=== PATIENT | female | born 1950 | race Caucasian/White ===

== ENCOUNTER 2019-06-30 03:12 | Emergency (ER) | payer MEDICARE, SELFPAY ==
--- NOTE | ~2019-06-30 | CT_ITS ---
EXAMINATION: CT brain wo con, CT cervical spine wo con EXAM DATE: 06/30/2019 04:59 (accession [id number]), 06/30/2019 05:00 (accession [id number]) INDICATION: Head injury. TECHNIQUE: Spiral CT of the head was performed without contrast. Axial, coronal and sagittal images were reviewed. Spiral CT of the cervical spine was performed without contrast. Axial images were rev iewed. Coronal and sagittal reformatted images were also reviewed. The dose-length product (DLP) fo r this examination was 605.33 (accession [id number]), 307.79 (accession [id number]) mGy-cm. The exposure was tailored according to patient size, and iterative reconstruction (ASIR) was used as additional dose reduction technique. There is no prior study for comparison. FINDINGS: HEAD CT: There is no acute intraparenchymal hemorrhage. No evidence of intraparenchymal brain mass l esion. No evidence of acute infarction. There is mild periventricular and subcortical hypodensity, n onspecific but probably related to small vessel ischemic disease. There is moderate prominence of t he sulci and ventricles related to cerebral atrophy. There is intracranial carotid arteriosclerosis . There is no mass effect or midline shift. There is no obstructive hydrocephalus suspected. There are no extra-axial collections. There are no acute calvarial fractures. Patient has had bilateral ocular lens surgery. Mild to moderate left supraorbital and frontal scalp soft tissue swelling, scal p contusion. Mild mucoperiosteal thickening. Small osteoma in right frontal sinus. CERVICAL CT: Mild to moderate cervical spondylosis. There is no evidence of acute cervical fracture. The odontoid process is intact. Pre-dens space is normal. Prevertebral soft tissue is normal. The re are no soft tissue abnormalities identified. There is no disc space widening or traumatic vertebr al body subluxation suspected. A detailed level by level evaluation of spondylosis can be added as addendum if requested. IMPRESSION: 1. No acute intracranial or cervical findings. 2. Frontal scalp contusion. 3. Mild to moderate cervical spondylosis. Reviewed, dictated and finalized at location A. IMPRESSION: 1. No acute intracranial or cervical findings. 2. Frontal scalp contusion. 3. Mild to moderate cervical spondylosis.
[2019-06-30 03:09] VITALS: BP 130/99; PULSE 89; RESP 16; TEMP 36.4; O2SAT 97
--- NOTE | 2019-06-30 03:50 | PC.NURSE ---
Patient's heard by staff stating, Rama Calixto! Staff into room, patient noted to be climbing out of bed. Patient assisted back into bed. Patient and continuously screaming at each other. Explained to patient and that he would need to leave if they cannot settle down. stated he would leave.
[2019-06-30 04:16] VITALS: BP 107/53; PULSE 89; RESP 18; O2SAT 97
--- NOTE | 2019-06-30 04:16 | PC.NURSE ---
Patient assisted to bedside commode. Patient very unsteady. Assisted back to bed and bed alarm placed under patient.
--- NOTE | 2019-06-30 04:37 | ECG_ITS ---
Measurements Intervals [place] Rate: 86 P: MA: 0 QRS: 62 QRSD: 101 T: 87 QT: 257 QTc: 307 Interpretive Statements SINUS RHYTHM WITH FIRST DEGREE AV BLOCK BORDERLINE ST-T WAVE ABNORMALITY- ANT/LAT LEADS BASELINE ARTIFACT- I, III, AVL, V1-V4 ABNORMAL ECG Electronically Signed On 06-30-2019 8:07:23 CDT by Eddie Corley D.O.
--- NOTE | 2019-06-30 04:38 | ED.FALL ---
HPI - Fall General Chief Complaint: Fall Stated Complaint: 08 Time Seen by Provider: 06/30/19 04:20 Source: patient Mode of arrival: EMS Limitations: intoxication History of Present Illness HPI Narrative: This patient is 68 yo female who presents to ER via EMS for evaluatino of head injury s/p fall. Patient states she has been drinking alcohol and watching movies tonight. She states she slipped and fell when she got up to go to bathroom. She denies LOC or headache. She did have 1 episode of vomiting after falling. Her heard her fall and she was awake. PAtient denies chest pain, sob, neck, abdominal pain, dizziness or nausea currently. She also states she does not take anticoagulation. complaint: fall Fall from: standing Fall witnessed: no Place fall occurred: home Loss of consciousness: none Symptoms prior to fall: none Context: tripped/slipped Location of injury: head Related Data Allergies Allergy/AdvReac Type Severity Reaction Status Date / Time Iodinated Contrast Media Allergy Severe DIFFICULTY Verified 01/08/19 12:40 BREATHING ampicillin Allergy Unknown Verified 11/18/09 10:55 iodine Allergy Unknown Verified 11/18/09 10:55 Penicillins Allergy Unknown Verified 03/19/15 08:46 shellfish derived Allergy Unknown Verified 03/19/15 08:48 Review of Systems Review of Systems: All systems reviewed & are unremarkable except as noted in HPI and below Constitutional: Constitutional: Denies chills, Denies fever(s) and Denies weakness ENT: Denies dizziness Cardiovascular: Cardiovascular: Denies chest pain Respiratory: Respiratory: Denies cough and Denies dyspnea Gastrointestinal: Gastrointestinal: Denies abdominal pain, Denies nausea and Reports vomiting Musculoskeletal: Musculoskeletal: Denies back pain Neurologic: Denies dizziness, Denies headache(s) and Denies focal weakness [facility] Past Medical History Medical History (Updated 06/30/19 @ 07:17 by Shawna Mitchell MD) Hypothyroidism Surgical History Surgical History (Updated 06/30/19 @ 04:43 by Shawna Mitchell MD) H/O: hysterectomy Hx of appendectomy Family History Family History (Updated 03/19/15 @ 09:36 by DOCTOR UNKNOWN) Grandparent Hypertension Cerebrovascular accident Diabetes mellitus Mother Family history of lung cancer Family history of malignant neoplasm Father Patient's father is Social History Social History (Updated 06/30/19 @ 04:44 by Shawna Mitchell MD) Smoking status: Current every day smoker Alcohol intake: current Exam Const: General: alert Orientation/consciousness: patient oriented x3 HENMT: Head: other (left forehead hematoma) Mouth: Yes Normal oral and palatal mucosa present, Yes lip normal and Yes tongue normal Throat: posterior oropharynx normal, tonsils normal and uvula midline Eyes: Conjunctivae: conjunctivae normal Pupils: Equal, round and reactive pupils present EOM: EOMs intact bilaterally Neck: Neck: no lymphadenopathy Chest: Chest palpation & inspection: normal inspection of the chest Resp: Effort & Inspection: normal respiratory effort Auscultation: clear to auscultation bilaterally Cardio: Rate: regular rate Rhythm: regular rhythm Heart sounds: no murmurs Skin: General skin exam: normal color Rashes: no rashes Neuro: General: patient oriented x3, moves all extremities, no meningeal signs and CN's II-XI intact bilaterally Other: mild slurred speech likely from alcohol Extrem: General: no pedal edema Course Reevaluation(s) Reevaluation #1: Nursing staff reports patient appear for steady with gait. She reports she normally has unsteady gait and she is ready to go home. Patient is awaiting for to come to ER. Date: 06/30/19 Time: 07:16 Vital Signs Vital signs: Vital Signs Temperature 97.6 F 06/30/19 03:09 Pulse Rate 89 06/30/19 03:09 Respiratory Rate 16 06/30/19 03:09 Blood Pressure 130/99 H 06/30/19 03
[2019-06-30 06:25] LABS: Basophils Percent Auto 0.6 % (0.2-1.2); Eosinophils Absolute Auto 0.2 K/mm3 (0-0.3); Eosinophils Percent Auto 3.1 % (0-4.4); Hematocrit 40.4 % (37.0-47.0); Hemoglobin 13.2 g/dL (12.0-15.0); Immature Granulocyte Absolute 0.05 K/mm3 (0.00-0.031); Immature Granulocyte Percent A 0.8 % (0-0.5); Lymphocytes Percent Auto 24.5 % (18.3-44.2); Mean Corpuscular HGB Conc 32.7 g/dl (32-36); Mean Corpuscular Hemoglobin 30.1 pg (26-34); Mean Platelet Volume 9.7 fl (7.4-10.4); Monocytes Absolute Auto 0.4 K/mm3 (0.1-0.6); Monocytes Percent Auto 6.4 % (2.6-8.5); Neutrophils Absolute Auto 4.2 K/mm3 (1.3-6.7); Neutrophils Percent Auto 64.6 % (45.5-73.1); Platelet Count Result 185 k/mm3 (150-375); Red Blood Count 4.39 M/mm3 (4.2-5.4); Red Cell Distribution Width 12.9 % (11.5-14.5); White Blood Count 6.5 K/mm3 (4.5-10.0)
[2019-06-30 06:32] LABS: Ethanol 203 mg/dL (<10)
[2019-06-30 06:34] LABS: Alanine Aminotransferase 16 U/L (4-35); Albumin Level 4.2 g/dL (3.5-5.1); Alkaline Phosphatase 95 U/L (38-126); Aspartate Amino Transferase 28 U/L (14-36); Bilirubin,Total 0.5 mg/dL (0.2-1.3); Blood Urea Nitrogen 8 mg/dL (7-17); Calcium 9.1 mg/dL (8.4-10.2); Carbon Dioxide 30 mmol/L (22-30); Chloride 101 mmol/L (98-107); Estimated CRCL calculation 59 ml/min; Estimated Glomerular Filt Rate > 60; Glucose 113 mg/dL (65-105); Magnesium 1.8 mg/dL (1.6-2.3); Potassium 3.9 mmol/L (3.4-5.0); Sodium 139 mmol/L (137-145)
== END 2019-06-30 07:57 | disposition home or self-care (01) ==
PROVIDERS: Emergency Provider General Practice; PCP Family Medicine
DX: S00.83XA Contusion of other part of head, initial encounter (principal); F10.120 Alcohol abuse with intoxication, uncomplicated; Y90.7 Blood alcohol level of 200-239 mg/100 ml; F17.200 Nicotine dependence, unspecified, uncomplicated; I44.0 Atrioventricular block, first degree; R94.31 Abnormal electrocardiogram [ECG] [EKG]; W01.0XXA Fall on same level from slipping, tripping and stumbling without subsequent striking against object, initial encounter
CPT/HCPCS: 36415; 70450; 72125; 80053; 80307; 83735; 85025; 93005; 96365; 96366; 99284; J3411; J3475; J7120

== ENCOUNTER 2020-12-14 03:14 | Emergency (ER) | payer MEDICARE, SELFPAY ==
--- NOTE | ~2020-12-14 | CT_ITS ---
EXAMINATION: CT brain wo con DATE: 12/14/2020 04:21 INDICATION: Fall TECHNIQUE: Computed tomography (CT) of the head was performed without intravenous contrast. The mA wa s adjusted according to patient size. Iterative reconstruction technique was employed. Exam dose: 60 5.33 mGy-cm total exam DLP. COMPARISON: 06/30/2019 CT head FINDINGS: There are bilateral carotid siphon internal carotid artery calcifications. There is nonspec ific diminished attenuation of cerebral white matter, likely due to chronic small vessel ischemic jori nges. No intracranial mass lesion or hemorrhage or cerebrovascular accident is detected. No midline shift o r mass effect effect. No subdural or epidural hematoma. There is left facial hematoma in the maxillary antra zygomatic area. No fracture or bone destruction of the cranial vault. Some mild soft tissue thickening is noted in the right frontal sinus and both sphenoid sinuses. The p aranasal sinuses otherwise IMPRESSION: Left maxillary sinus and zygomatic facial hematoma; no apparent underlying facial fractur e or skull fracture Cerebral atherosclerosis and chronic small vessel ischemic changes of the cerebral white matter No acute intracranial finding Reviewed, dictated and finalized at [facility]. Reviewed, dictated and finalized at location A. IMPRESSION: Left maxillary sinus and zygomatic facial hematoma; no apparent und erlying facial fracture or skull fracture Cerebral atherosclerosis and chronic small vessel ischemic changes of the cereb ral white matter No acute intracranial finding
--- NOTE | ~2020-12-14 | CT_ITS ---
EXAMINATION: CT lumbar spine wo con DATE: 12/14/2020 04:21 INDICATION: Low back injury. Fall. TECHNIQUE: Computed tomography (CT) of the lumbar spine was performed without intravenous contrast. A utomated exposure control and iterative reconstruction technique were employed. The dose-length produ ct was 846.63 mGy-cm. COMPARISON: None FINDINGS: There is 3 degrees dextrocurvature of lumbar spine. Vertebral body heights are normal. Ther e is mildly decreased disc height at L3-L4. The following disc levels are specifically discussed: L1-L2: The disc does not extend beyond the endplate margin. There is moderate bilateral facet joint o steoarthritis. There is no neural foraminal stenosis. There is no central canal stenosis. L2-L3: The disc is mildly bulging. There is mild bilateral facet joint osteoarthritis. There is mild bilateral neural foraminal stenosis. There is no central canal stenosis. L3-L4: The disc is bulging. There is severe right and moderate left facet joint osteoarthritis. There is mild bilateral neural foraminal stenosis. There is mild central canal stenosis. L4-L5: The disc is bulging. There is severe right and moderate left facet joint osteoarthritis. There is mild bilateral neural foraminal stenosis. There is mild central canal stenosis. L5-S1: The disc is bulging. There is severe bilateral facet joint osteoarthritis. There is mild bilat eral neural foraminal stenosis. There is mild central canal stenosis. IMPRESSION: 1. No fracture. 2. Mild lumbar spondylosis. Reviewed, dictated and finalized at location A.
--- NOTE | ~2020-12-14 | CT_ITS ---
EXAMINATION: CT facial & cervical spine wo DATE: 12/14/2020 04:21 INDICATION: Fall TECHNIQUE: Computed tomography (CT) of the facial bones and maxillofacial region was performed withou t intravenous contrast. Automated exposure control and iterative reconstruction technique were employ ed. Exam dose: 399.51 mGy-cm total exam DLP. COMPARISON: 12/14/2020 CT brain FINDINGS: There is soft tissue hematoma/swelling in the left upper maxillary and anterior zygomatic r egion. The orbital rims and xiao, frontozygomatic sutures and zygomatic arches as well as maxillary bones are intact without evidence of fracture. The mandible and temporomandibular joints are intact. No fracture of the nasal bones or maxillary spine. IMPRESSION: Left facial hematoma; no facial fracture Reviewed, dictated and finalized at [facility]. Reviewed, dictated and finalized at location [facility].
[2020-12-14 03:19] VITALS: BP 129/77; PULSE 97; RESP 16; TEMP 36.6; O2SAT 95
[2020-12-14 03:28] VITALS: PULSE 92; RESP 18; O2SAT 95
[2020-12-14 03:30] VITALS: PULSE 91; RESP 18; O2SAT 93
[2020-12-14 03:31] VITALS: BP 123/68; PULSE 91; RESP 17; O2SAT 93
[2020-12-14 03:45] VITALS: O2SAT 94
[2020-12-14 03:46] VITALS: BP 131/71; O2SAT 93
--- NOTE | 2020-12-14 04:00 | ED.FALL ---
HPI - Fall General Chief Complaint: Fall Stated Complaint: glf, light headed, lower back pain Time Seen by Provider: 12/14/20 03:42 Source: RN notes reviewed History of Present Illness HPI Narrative: Patient presents to emergency department from home for a fall. Patient states she has peripheral neuropathy supposed be walking with a walker present always use it she states that she fell yesterday and then again today. Patient states she struck the left side of her face causing bruising around the left side eye and into the left cheek she also states that when she fell she hurt her lower back causing pain in the bilateral lower back she denies any loss of consciousness she denies any chest pain shortness of breath abdominal pain nausea vomiting or any other symptoms Related Data Allergies Allergy/AdvReac Type Severity Reaction Status Date / Time Iodinated Contrast Media Allergy Severe DIFFICULTY Verified 12/14/20 03:32 BREATHING ampicillin Allergy Unknown Unknown Verified 12/14/20 03:32 iodine Allergy Unknown Difficulty Verified 12/14/20 03:32 Breathing Penicillins Allergy Unknown Unknown Verified 12/14/20 03:32 shellfish derived Allergy Unknown Difficulty Verified 12/14/20 03:32 Breathing Review of Systems Review of Systems: Gen.: Denies fevers or chills Eyes: Denies eye pain or visual change ENT: Reports facial pain Respiratory: Denies shortness of breath or cough CV: Denies chest pain or palpitations GI: Denies abdominal pain nausea, emesis or diarrhea Musculoskeletal: See HPI Neuro: Denies numbness, tingling, weakness or focal weakness Skin: Denies rash Except as documented, all other systems reviewed and negative PMFSH Past Medical History Medical History Hypothyroidism Surgical History Surgical History (Updated 06/30/19 @ 04:43 by Shawna Mitchell MD) H/O: hysterectomy Hx of appendectomy Family History Family History (Updated 03/19/15 @ 09:36 by DOCTOR UNKNOWN) Grandparent Hypertension Cerebrovascular accident Diabetes mellitus Mother Family history of lung cancer Family history of malignant neoplasm Father Patient's father is Social History Social History Smoking status: Current every day smoker Alcohol intake: current Exam Narrative: APPEARANCE: No acute distress, nontoxic, resting in bed EYES: EOMI PERRL HEENT: Normocephalic, ecchymosis over left superior and inferior orbit and left cheek nares patent range of motion of the jaw without pain Neck supple no midline tenderness palpation RESPIRATORY: No respiratory distress Clear to auscultation bilaterally with no rhonchi wheezing or rales. CARDIOVASCULAR: Regular rate and rhythm without murmurs rubs or gallops. ABDOMINAL: Soft, nontender, nondistended, no rebound or guarding MUSCULOSKELETAl: Moves all extremities. No clubbing, cyanosis or edema. Back: No midline thoracic or lumbar tenderness palpation 10 palpation bilateral paravertebral muscles L3-5 NEURO: Awake and alert x 4. Following commands, speech normal, no focal deficits SKIN:: Warm, dry. No rashes lesions or abrasions PSYCHIATRIC: Normal affect/mood, Course Course Emergency Course: Discussed with patient results of workup and diagnosis. Discussed need for follow-up with primary care, proper use of medication, and reasons to return to the emergency department. Patient understands and agrees to current treatment plan Vital Signs Vital signs: Vital Signs Temperature 97.8 F 12/14/20 03:19 Pulse Rate 97 12/14/20 03:19 Respiratory Rate 16 12/14/20 03:19 Blood Pressure 129/77 12/14/20 03:19 Pulse Oximetry 95 12/14/20 03:19 Temperature 97.8 F 12/14/20 03:19 Pulse Rate 91 12/14/20 03:31 Respiratory Rate 17 12/14/20 03:31 Blood Pressure 131/71 12/14/20 03:46 Pulse Oximetry 93 12/14/20 03:46 [facility] -
== END 2020-12-14 05:36 | disposition home or self-care (01) ==
PROVIDERS: Emergency Provider Emergency Medicine; PCP Family Medicine
DX: S00.83XA Contusion of other part of head, initial encounter (principal); S39.92XA Unspecified injury of lower back, initial encounter; G62.9 Polyneuropathy, unspecified; E03.9 Hypothyroidism, unspecified; F17.200 Nicotine dependence, unspecified, uncomplicated; M47.816 Spondylosis without myelopathy or radiculopathy, lumbar region; I67.2 Cerebral atherosclerosis; W01.198A Fall on same level from slipping, tripping and stumbling with subsequent striking against other object, initial encounter
CPT/HCPCS: 70450; 70486; 72125; 72131; 99284

== ENCOUNTER 2021-05-31 00:16 | Observation (INO) | payer MEDICARE, SELFPAY ==
[2021-05-31] VITALS (27 sets, daily range): BP systolic 167–200; BP diastolic 61–103; PULSE 70–85; RESP 14–24; TEMP 35.9–37.1; O2SAT 93–100; BMI 32.4
--- NOTE | ~2021-05-31 | US_ITS ---
EXAMINATION:US venous doppler LE RT INDICATION:Erythema TECHNIQUE: Multiple grayscale, color flow and Doppler images of the right lower extremity deep venous systems were obtained and reviewed. COMPARISON:No prior studies for comparison. FINDINGS: The common femoral, superficial femoral and popliteal veins demonstrate normal respiratory variation, augmentation and compressibility. Color flow is also seen within the posterior tibial, pe roneal, and profunda veins. IMPRESSION: 1: No lower extremity deep venous thrombosis. Reviewed, dictated and finalized at location A.
--- NOTE | ~2021-05-31 | CT_ITS ---
EXAMINATION: CT cervical spine wo con DATE: 05/31/2021 01:57 INDICATION: Status post recent fall. Neck pain. TECHNIQUE: Computed tomography (CT) of the cervical spine was performed without intravenous contrast. The dose-length product was 365 mGy-cm. Automated exposure control and iterative reconstruction tech [employer] were employed. COMPARISON: CT dated 12/14/2020 FINDINGS: There is normal cervical alignment. Vertebral body heights are maintained. Craniovertebral junction is normal. Odontoid process is normal. No evidence for perched facet. No acute fracture or t raumatic malalignment. There is mild loss of disc height at multiple levels. There is mild multilevel uncovertebral and facet hypertrophy. Lung apices are normal. There is mild carotid atherosclerosis. No paraspinal soft tissue abnormality. There is mucosal thickening of the sphenoid sinuses. IMPRESSION: 1. No acute fracture. 2: Mild cervical spondylosis. Reviewed, dictated and finalized at location A.
--- NOTE | ~2021-05-31 | MR_ITS ---
EXAMINATION: MR lumbar spine wo con DATE: 05/31/2021 12:49 INDICATION: Low back pain. Assess for possible discitis at L2-L3 TECHNIQUE: Magnetic resonance imaging (MRI) of the lumbar spine was performed without intravenous con trast. Sequences included sagittal T2-weighted FSE, sagittal T2-weighted FS FSE, sagittal T1-weighted FSE, and axial T2-weighted FSE. COMPARISON: None FINDINGS: Alignment is normal. L3 superior endplate compression fracture with up to 10-20% left-sided vertebral body height loss. There is marrow edema consistent with a recent injury. Remaining vertebral body he ights are normal. Mild disc height loss at L3-L4. The conus medullaris terminates at L1-L2. There is normal signal in the caudal spinal cord. Paravertebral soft tissues are unremarkable. The following d isc levels are specifically discussed: T12-L1: The disc does not extend beyond the endplate margin. There is mild bilateral facet joint oste oarthritis. There is no neural foraminal stenosis. There is no central canal stenosis. L1-L2: The disc does not extend beyond the endplate margin. There is mild bilateral facet joint osteo arthritis. There is no neural foraminal stenosis. There is no central canal stenosis. L2-L3: The disc does not extend beyond the endplate margin. There is hypertrophy of the ligamentum fl avum. There is also epidural lipomatosis with anterior bulging of the posterior epidural fat. There i s mild bilateral facet joint osteoarthritis. There is no neural foraminal stenosis. There is moderate central canal stenosis. L3-L4: Disc is minimally bulging. There is hypertrophy of the ligamentum flavum. Epidural lipomatosis with anterior bulging of the posterior epidural fat. There is moderate bilateral facet joint osteoar thritis. There is mild bilateral neural foraminal stenosis. There is moderate to severe central canal stenosis. L4-L5: Disc is minimally bulging. There is hypertrophy of the ligamentum flavum. Epidural lipomatosis with anterior bulging of the posterior epidural fat. There is moderate bilateral facet joint osteoar thritis. There is mild bilateral neural foraminal stenosis. There is mild to moderate central canal s tenosis. L5-S1: Disc is mildly bulging. There is severe bilateral facet joint osteoarthritis. There is mild le ft neural foraminal stenosis. There is no central canal stenosis. IMPRESSION: 1. Relatively recent-appearing mild L3 superior endplate compression fracture. 2. Mild lumbar spondylosis but with moderate to severe central canal stenosis at L3-L4 and moderate c entral canal stenosis at L2-L3 due in part to hypertrophy of the ligamentum flavum and epidural lipom atosis. Reviewed, dictated and finalized at location A. IMPRESSION: 1. Relatively recent-appearing mild L3 superior endplate compression fracture. 2. Mild lumbar spondylosis but with moderate to severe central canal stenosis a t L3-L4 and moderate central canal stenosis at L2-L3 due in part to hypertrophy of the ligamentum flavum and epidural lipomatosis.
--- NOTE | ~2021-05-31 | CT_ITS ---
EXAMINATION: CT brain wo con DATE: 05/31/2021 01:57 INDICATION: Status post recent fall. Confusion. TECHNIQUE: Computed tomography (CT) of the head was performed without intravenous contrast. The dose- length product was 605.33 mGy-cm. Automated exposure control and iterative reconstruction technique w ere employed. COMPARISON: CT dated 12/14/2020 FINDINGS: No acute intracranial hemorrhage, infarction, mass or mass effect. No ventriculomegaly or m idline shift. There are scattered mild periventricular and subcortical white matter changes, most lik elliot related to small vessel ischemic disease (microangiopathy). There is a probable small osteoma or inspissated mucous retention cyst right frontal sinus. No depressed skull fractures. Mastoids are pne umatized. IMPRESSION: 1. No acute intracranial abnormality. 2: Chronic age-related findings. Reviewed, dictated and finalized at location A.
--- NOTE | ~2021-05-31 | CT_ITS ---
EXAMINATION: CT lumbar spine wo con DATE: 05/31/2021 01:58 INDICATION: Low back pain after trauma TECHNIQUE: Computed tomography (CT) of the lumbar spine was performed without intravenous contrast. Estefania maya dose-length product was 1152.55 mGy-cm. Automated exposure control and iterative reconstruction te victorino were employed. COMPARISON: None FINDINGS: There is a mild superior endplate compression fracture of L3 which is new since 12/14/2020 examination, possibly acute. There is degenerative disc disease at L2-3. There is atherosclerosis and ectasia of the aorta. The remainder of the lumbar vertebral body heights are maintained. Small bone island in L2. There are calcified granulomas in the spleen. There is osteopenia. IMPRESSION: 1. New superior endplate compression fracture of L3 since CT dated 12/15/2020, possibly acute. There is approximately 10% loss of vertebral body height. Reviewed, dictated and finalized at location A.
--- NOTE | 2021-05-31 00:43 | ED.FALL ---
HPI - Fall General Chief Complaint: Fall <Ana Kennedy PA-C - Last Filed: 05/31/21 04:33> Stated Complaint: Back pain, fall 2 days ago <Ana Kennedy PA-C - Last Filed: 05/31/21 04:33> Source: patient and EMS <Ana Kennedy PA-C - Last Filed: 05/31/21 04:33> Mode of arrival: EMS <Ana Kennedy PA-C - Last Filed: 05/31/21 04:33> Limitations: no limitations <Ana Kennedy PA-C - Last Filed: 05/31/21 04:33> History of Present Illness HPI Narrative: Patient is a 70-year-old female who presents the ED via EMS with report of back pain status post fall. Patient reports she rolled and fell off the couch 2 nights ago. She states she laid on her floor all night that night. She denied any prodromal symptoms prior to the fall or any dizziness/lightheadedness. She was eventually able to get up off the floor and ambulate over the past day, but reports having significant pain to her mid lower back. She states she went to the bathroom last night, 05/30, and began to feel weak in her BLE and felt like she was going to fall again. No new injuries. EMS was called. EMS reported to patient's nurse that patient has been laying on the ground for the past 2 days since her original fall. Patient denies this and states she has been able to ambulate. She has some difficultly ambulating at baseline and has needed her walker for assistance with ambulation since her fall due to her back pain. Patient denies hitting her head or losing consciousness in the fall. She denies any saddle anesthesia, bowel or bladder incontinence, urinary retention, chest pain, shortness of breath, abdominal pain, nausea, vomiting, fever, chills, neck pain. Patient also reports having increased swelling and erythema in her right lower leg that she first noticed last night, 05/30. She does report having mild pain throughout right lower leg. <Ana Kennedy PA-C - Last Filed: 05/31/21 04:33> Related Data Allergies/Adverse Reactions: Allergies Allergy/AdvReac Type Severity Reaction Status Date / Time Iodinated Contrast Media Allergy Severe DIFFICULTY Verified 12/14/20 03:32 BREATHING ampicillin Allergy Unknown Unknown Verified 12/14/20 03:32 iodine Allergy Unknown Difficulty Verified 12/14/20 03:32 Breathing Penicillins Allergy Unknown Unknown Verified 12/14/20 03:32 shellfish derived Allergy Unknown Difficulty Verified 12/14/20 03:32 Breathing <Ana Kennedy PA-C - Last Filed: 05/31/21 04:33> Review of Systems Review of Systems: CONSTITUTIONAL: Denies fever, chills, or sweats. EYES: Denies visual changes. CARDIOVASCULAR: Denies chest pain, palpitations. RESPIRATORY: Denies cough or dyspnea. GASTROINTESTINAL: Denies abdominal pain, nausea, vomiting, or diarrhea, urinary retention, bowel/bladder incontinence. GENITOURINARY: Denies dysuria or hematuria. MUSCULOSKELETAL: Reports mid lower back pain, pain/swelling/redness to RLE. Denies joint pain, or myalgia. NEUROLOGIC: Reports BLE weakness. Denies dizziness lightheadedness headache, saddle numbness, or weakness. <Ana Kennedy PA-C - Last Filed: 05/31/21 04:33> All systems reviewed & are unremarkable except as noted in HPI and below <Ana Kennedy PA-C - Last Filed: 05/31/21 04:33> [facility] Past Medical History Medical History: Medical History (Updated 05/31/21 @ 04:26 by Lynnette Tai MD) Hypothyroidism <Ana Kennedy PA-C - Last Filed: 05/31/21 04:33> Surgical History Surgical History: Surgical History (Updated 05/31/21 @ 04:20 by Ana Kennedy PA-C) H/O vascular surgery H/O: hysterectomy Hx of appendectomy <Ana Kennedy PA-C - Last Filed: 05/31/21 04:33> Family History Family History: Family History (Updated 03/19/15 @ 09:36 by DOCTOR UNKNOWN) Grandparent Hypertension Cerebrovascular accident Diabetes mellitus Mother Family history of lung cancer Family history of malignant neoplasm Father Patien
--- NOTE | 2021-05-31 00:45 | ECG_ITS ---
Measurements Intervals [place] Rate: 73 P: 40 VT: 250 QRS: 65 QRSD: 98 T: 59 QT: 429 QTc: 474 Interpretive Statements SINUS RHYTHM WITH FIRST DEGREE AV BLOCK NONSPECIFIC T-WAVE ABNORMALITY. ABNORMAL ECG COMPARED TO ECG 06/30/2019 05:08:10 NO SIGNIFICANT CHANGES Electronically Signed On 05-31-2021 9:05:48 CDT by Poli Johnson M.D.
[2021-05-31 01:22] LABS: Hematocrit 38.3 % (37.0-47.0); Hemoglobin 12.2 g/dL (12.0-15.0); Immature Platelet Fraction Pct 5.1 % (0.9-11.2); Mean Corpuscular HGB Conc 31.9 g/dl (32-36); Mean Corpuscular Hemoglobin 30.8 pg (26-34); Mean Corpuscular Volume 96.7 fl (80-100); Mean Platelet Volume 10.6 fl (7.4-10.4); Platelet Count Result 165 k/mm3 (150-375); Red Blood Count 3.96 M/mm3 (4.2-5.4); Red Cell Distribution Width 13.1 % (11.5-14.5); White Blood Count 7.7 K/mm3 (4.5-10.0)
[2021-05-31 01:29] LABS: Add Urine Microscopic? YES; Appearance Urine Cloudy (Clear); Bacteria Urine Trace /hpf; Bilirubin Urine Negative (Negative); Blood Urine 1+ (Negative); Color Urine Yellow (Yellow); Glucose Urine UA Negative (Negative); Ketones Urine Negative (Negative); Leukocyte Esterase Ur Negative LEU/UL (Negative); Mucus Urine Rare /lpf; Nitrate Urine Negative (Negative); Protein Urine Negative (Negative); RBC Urine 0-2 /hpf (0-2); Specific Grav Ur 1.008 (1.001-1.035); Urobilinogen Urine Negative mg/dL (<2.0); WBC Urine 0-3 /hpf
[2021-05-31 02:04] LABS: Alanine Aminotransferase 27 U/L (4-35); Albumin Level 4.1 g/dL (3.5-5.1); Alkaline Phosphatase 113 U/L (38-126); Anion Gap 6 mmol/L (8-16); Aspartate Amino Transferase 30 U/L (14-36); Bilirubin,Total 0.6 mg/dL (0.2-1.3); Blood Urea Nitrogen 21 mg/dL (7-17); Calcium 8.8 mg/dL (8.4-10.2); Carbon Dioxide 30 mmol/L (22-30); Chloride 100 mmol/L (98-107); Creatine Kinase 58 U/L (30-135); Estimated Glomerular Filt Rate > 60; Glucose 114 mg/dL (65-110); Potassium 3.7 mmol/L (3.4-5.0); Sodium 136 mmol/L (137-145)
[2021-05-31 02:16] LABS: Troponin I < 0.012 ng/mL (0.000-0.034)
[2021-05-31] MEDS: KETOROLAC 30 MG/ML VIAL (*BKC) IV PUSH ×3 (03:04→21:04)
--- NOTE | 2021-05-31 03:46 | PM.IMHP ---
H&P: HPI History of Present Illness Date/Time: 05/31/21 03:46 Chief Complaint: Fall Narrative: This is a 70-year-old female with past medical history significant for peripheral arterial disease status post bypass grafting in of the right lower extremity. Patient was brought to the emergency room via EMS after she had a fall on remain done for overnight eventually she was able to climb to the couch however EMS found her laying on the floor and probably had been there for 2 days. Patient is not the greatest historian she denies any loss of consciousness, fevers, rigors ,,chills cough ,nausea, vomiting, diarrhea ,abdominal pain ,chest pain ,syncope ,near syncope shortness of breath, cough, sputum production, she has swelling of the right lower extremity however this is her usual. Preliminary workup was significant for a fracture vertebrae at the level of L3 in the spine. Decision has been made to admit the patient for further evaluation management and treatment.. Review of Systems Review of Systems: Fall, weakness. Constitutional: Constitutional: Denies chills, Denies fatigue, Denies fever(s), Denies malaise, Denies night sweats, Denies poor appetite and Reports weakness Eyes: Eyes: Denies change in vision ENT: Denies dysphagia, Denies vertigo, Denies dizziness, Denies nasal congestion, Denies nasal discharge, Denies nasal obstruction and Denies odynophagia Cardiovascular: Cardiovascular: Denies chest pain, Denies syncope, Reports pedal edema, Reports leg edema (rle), Denies lightheadedness, Denies radiating jaw, neck or arm pain, Denies palpitations, Denies dyspnea on exertion, Denies orthopnea and Denies paroxysmal nocturnal dyspnea Respiratory: Respiratory: Denies cough and Denies dyspnea Gastrointestinal: Gastrointestinal: Denies abdominal pain, Denies dyspepsia, Denies heartburn, Denies nausea and Denies vomiting Genitourinary: Genitourinary: Denies dysuria Musculoskeletal: Musculoskeletal: Denies back pain and Reports muscle weakness Comments: Right lower extremity swelling Integumentary/Breasts: Skin/Breast: Denies rash Neurologic: Denies focal weakness and Denies Sensory deficit (Neuro) Psychiatric: Psychiatric: Reports no additional psychiatric complaints and Reports as per HPI Endocrine: Endocrine: Denies cold intolerance, Denies heat intolerance, Denies polyphagia, Denies polydipsia, Denies polyuria and Denies palpitations Hematologic/Lymphatic: Hematologic/Lymphatic: Reports no additional hematologic/lymphatic complaints and Reports as per HPI Allergic/Immunologic: Allergic/Immunologic: Reports no additional allergic/immunologic complaints and Reports as per HPI [facility] Past Medical History Medical History (Updated 05/31/21 @ 04:26 by Lynnette Tai MD) Hypothyroidism Surgical History Surgical History (Updated 05/31/21 @ 04:20 by Ana Kennedy PA-C) H/O vascular surgery H/O: hysterectomy Hx of appendectomy Family History Family History (Updated 03/19/15 @ 09:36 by DOCTOR UNKNOWN) Grandparent Hypertension Cerebrovascular accident Diabetes mellitus Mother Family history of lung cancer Family history of malignant neoplasm Father Patient's father is Social History Social History Smoking packs per day: 1 Smoking cigarettes per day: 20.0 Years smoked: 52 Smoking pack-years: 52.00 Smoking status: Former smoker Tobacco type: cigarettes Second hand tobacco smoke exposure: Yes Smoking end date: 05/11/20 Alcohol intake: former Substance use: never Spiritual care concerns: No Meds Home Medications and Allergies Allergies Allergy/AdvReac Type Severity Reaction Status Date / Time Iodinated Contrast Media Allergy Severe DIFFICULTY Verified 12/14/20 03:32 BREATHING ampicillin Allergy Unknown Unknown Verified 12/14/20 03:32 iodine Allergy Unknown Difficulty Verified 12/14/20 03:32 Breath
--- NOTE | 2021-05-31 05:48 | ADMGEN ---
This patient, Marily Acevedo, was admitted to Medical Room 341-01. Patient/family oriented to hospital policies and general routines including ID bracelet, bed and alarms, visiting hours, pain management, procedures, bathroom and other care routines, personal items, smoking policy, room service/diet, and visiting hours. Information on how to activate the Rapid Response Team has been discussed. Patient/Family are encouraged to report perceived risks to care and to ask questions if they do not understand what they are told or what they should do.
[2021-05-31] MEDS: SODIUM CHLORIDE 0.9% IV 1,000 ML 125 ML IV CONT ×3 (06:52→20:53)
[2021-05-31] MEDS: ENOXAPARIN 100 MG/ML SYRINGE 85 MG SUB-Q (08:06)
--- NOTE | 2021-05-31 10:44 | PM.IMPN ---
Progress Note: A&P Assessment and Plan (1) Fall: Qualifiers: Encounter type: initial encounter Qualified Code(s): W19.XXXA - Unspecified fall, initial encounter Code(s): W19.XXXA - Unspecified fall, initial encounter Status: Acute Assessment and Plan: - Continue Fall Precautions at home. - Pain medications as ordered. - PT and OT consult. (2) Muscular deconditioning: Code(s): R29.898 - Other symptoms and signs involving the musculoskeletal system Status: Acute Assessment and Plan: - Treat pain as needed. - PT and OT consult. (3) Localized swelling of right lower extremity: Code(s): R22.41 - Localized swelling, mass and lump, right lower limb Status: Acute Assessment and Plan: - Patient with remote surgery and grafting to that leg by vascular surgery. - Chronic swelling however worsened according to patient, and mildly erythematous. - Venous Doppler negative for any DVT. Distal pulses good without any mottling or signs of vascular compromise. - Labs completed to this point do not reflect any acute infection such as Cellulitis, however will order Inflammatory markers (CRP, Sed Rate) and a Procalcitonin. (4) Closed compression fracture of lumbar vertebra: Qualifiers: Encounter type: initial encounter Lumbar vertebra fracture level: L3 Qualified Code(s): S32.030A - Wedge compression fracture of third lumbar vertebra, initial encounter for closed fracture Code(s): S32.000A - Wedge compression fracture of unspecified lumbar vertebra, initial encounter for closed fracture Status: Acute Assessment and Plan: - Pain meds as needed. - Orthopedic consult - TLSO Brace ordered to be worn when up and removed only when lying in bed. - PT and OT consult with PT recommending Rehab at discharge. - Case Management to assist with Rehab placement. (5) Alcohol use: Code(s): Z72.89 - Other problems related to lifestyle Status: Acute Assessment and Plan: - CIWA scoring Q4, may discontinue when <8 for 24 hours. - PRN Ativan as needed for alcohol Withdrawl - Monitor (6) Hypertension: Qualifiers: Hypertension type: unspecified Qualified Code(s): I10 - Essential (primary) hypertension Code(s): I10 - Essential (primary) hypertension Status: Acute Assessment and Plan: - Not medicated for at home. - Running high. On presentation was 200/103. Now running 190s/70s-80s. - Will order prn Hydralazine with parameters of to give for SBP>180 and DBP>90. - Will start scheduled Norvasc 5 mg po daily in AM. - Monitor Time Spent With Patient Time with patient: 15 - 25 minutes Subjective Date/time seen: 05/31/21 0900 This pt. was examined at the bedside in interval assessment after presenting to the ER overnight, brought in by EMS after sustaining a fall off of her couch two days ago and laying there until yesterday. She said she was able to eventually get up and get around, it was just painful. She has complaints of pain to the lower back. No acute head trauma, loss of bowel or bladder control and no radiation of pain into the legs. She has no other paresthesias to report. ER workup significant for Compression fracture of L3 with 10% disc height loss. Pt. appears comfortable today and she states she just feels sore without any paresthesias. Review of Systems Review of Systems: A full 12 point ROS is performed and is otherwise unremarkable except as documented in HPI. All systems reviewed & are unremarkable except as noted in HPI and below Exam Const: General: comfortable and no acute distress HENMT: Mouth: Yes moist mucous membranes Neck: Neck: supple and no JVD Lymphatic: lymphadenopathy not noted Resp: Effort & Inspection: normal respiratory effort Auscultation: clear to auscultation bilaterally Cardio: Rate: regular rate Rhythm: regular rhythm GI: GI Palp: Yes Soft to palpation Auscultation:
[2021-05-31 11:29] LABS: CRP 1.8 mg/dL (<1.0)
[2021-05-31 11:52] LABS: Erythrocyte Sedimentation Rate 30 mm/hr (0-20)
[2021-05-31 12:10] LABS: Procalcitonin 0.1 ng/mL
[2021-05-31] MEDS: amLODIPine BESYLATE 5 MG TABLET PO (12:18)
[2021-05-31] MEDS: hydrALAZINE HCL 20 MG/ML VIAL 10 MG IV PUSH (13:15)
--- NOTE | 2021-05-31 13:50 | PM.CNOR ---
Assessment and Plan Additional Plan Patient is a 70-year-old female who was admitted through the emergency room last night with L3 compression fracture of the superior endplate with about 10-20% loss of height. This occurred when she rolled off the couch onto the floor 3 days ago. That is when her back started hurting. She laid on the floor for a day and half and then her helped her up the couch. She got her walker and has done little bit of moving around the house then and came to the emergency room last night because of persistent back pain where x-rays and CT scan of the lumbar spine were obtained which showed the compression fracture. CT scan also showed gas within the L2-3 disc space which was not seen on the CT scan of the lumbar spine from December 2020. superior endplate compression fracture was new compared with that CT as well. She denies any fevers or chills or infections in her body. She denies any numbness or loss of bowel or bladder control. Her laboratory study showed mild increase sedimentation rate at 30 normal being 0-20 and mild increase in C-reactive protein 1.8 normal being less than 1. I recommended obtaining an MRI scan of her lumbar spine because of the new gas in the disc space that could suggest diskitis. I reviewed the radiologist's report I reviewed the images. There is no edema of the inferior endplate of L2 which would be expected with diskitis of the L2-3 disc space edema on both endplates. Edema at the top of L3 is consistent with the compression fracture. It was felt that she had moderate central canal stenosis at that level and that at L3-4 she had moderately severe central canal stenosis. On exam today she has mild tenderness in her mid lumbar region. She had intact sensation lower extremities and grossly intact motor function. She was able to stand up bedside her she was standing up I walked into her room. She was alert oriented and in no acute distress. Impression patient has a mild 10 - 20% superior endplate compression fracture of L3. No evidence of infectious process involving the lumbar spine. I would recommend obtaining a semi rigid TLSO and we will ask Radio Script Writer to do that. I would recommend SCDs for DVT prophylaxis and she should follow-up with a data specialist for her new compression fracture and underlying lumbar spinal stenosis which are conditions that I do not manage my practice. History of Present Illness HPI Consult date: 05/31/21 Chief complaint: L3 Compression Fracture, likely LLE DVT [facility] Past Medical History Medical History (Updated 05/31/21 @ 11:03 by COLIN Nieves) Hypothyroidism Surgical History Surgical History (Updated 05/31/21 @ 04:20 by Ana Kennedy PA-C) H/O vascular surgery H/O: hysterectomy Hx of appendectomy Family History Family History Grandparent Hypertension Cerebrovascular accident Diabetes mellitus Mother Family history of lung cancer Family history of malignant neoplasm Father Patient's father is Social History Social History Smoking packs per day: 1 Smoking cigarettes per day: 20.0 Years smoked: 52 Smoking pack-years: 52.00 Smoking status: Former smoker Tobacco type: cigarettes Second hand tobacco smoke exposure: Yes Smoking end date: 05/11/20 Alcohol intake: former Substance use: never Spiritual care concerns: No Meds Home Medications and Allergies Home Medications Medication Instructions Recorded Confirmed Type atorvastatin 20 mg PO HS 05/31/21 05/31/21 History clonazepam 1 mg PO BID PRN 05/31/21 05/31/21 History diclofenac sodium 75 mg PO BID PRN 05/31/21 05/31/21 History fluoxetine 20 mg PO DAILY 05/31/21 05/31/21 History levothyroxine 75 mcg PO DAILY 05/31/21 05/31/21 History omeprazole 40 mg PO DAILY 05/31/21 05/31/21 History trazodone 150 mg PO HS 0
[2021-05-31] MEDS: HYDROcodone/acetaminophen (*CRX) 5-325 MG TABLET 1 TAB PO (16:18)
[2021-05-31] MEDS: PANTOPRAZOLE 40 MG TABLET PO (16:22)
[2021-05-31] MEDS: ATORVASTATIN 20 MG TABLET PO (20:56)
[2021-05-31] MEDS: traZODone HCL 50 MG TABLET 150 MG PO (20:56)
[2021-06-01] MEDS: KETOROLAC 30 MG/ML VIAL (*BKC) IV PUSH ×3 (04:53→16:12)
[2021-06-01] MEDS: LEVOTHYROXINE SODIUM 75 MCG TABLET PO (04:53)
[2021-06-01] MEDS: SODIUM CHLORIDE 0.9% IV 1,000 ML 125 ML IV CONT ×2 (04:55→11:53)
[2021-06-01 06:00] VITALS: BP 150/88; PULSE 73; RESP 20; TEMP 36; O2SAT 93
[2021-06-01 06:00] LABS: Basophils Percent Auto 0.7 % (0.2-1.2); Eosinophils Absolute Auto 0.2 K/mm3 (0-0.3); Eosinophils Percent Auto 3.4 % (0-4.4); Hematocrit 37.9 % (37.0-47.0); Immature Granulocyte Absolute 0.03 K/mm3 (0.00-0.031); Immature Granulocyte Percent A 0.5 % (0-0.5); Lymphocytes Absolute Auto 1.41 K/mm3 (0.9-3.2); Lymphocytes Percent Auto 24.1 % (18.3-44.2); Mean Corpuscular HGB Conc 31.7 g/dl (32-36); Mean Corpuscular Hemoglobin 30.5 pg (26-34); Mean Corpuscular Volume 96.4 fl (80-100); Mean Platelet Volume 10.3 fl (7.4-10.4); Monocytes Absolute Auto 0.5 K/mm3 (0.1-0.6); Monocytes Percent Auto 8.9 % (2.6-8.5); Neutrophils Absolute Auto 3.6 K/mm3 (1.3-6.7); Neutrophils Percent Auto 62.4 % (45.5-73.1); Platelet Count Result 187 k/mm3 (150-375); Red Blood Count 3.93 M/mm3 (4.2-5.4); White Blood Count 5.8 K/mm3 (4.5-10.0)
[2021-06-01 06:10] LABS: Alanine Aminotransferase 24 U/L (4-35); Albumin Level 3.7 g/dL (3.5-5.1); Alkaline Phosphatase 100 U/L (38-126); Anion Gap 5 mmol/L (8-16); Aspartate Amino Transferase 27 U/L (14-36); Bilirubin,Total 0.7 mg/dL (0.2-1.3); Blood Urea Nitrogen 12 mg/dL (7-17); Calcium 8.3 mg/dL (8.4-10.2); Carbon Dioxide 28 mmol/L (22-30); Chloride 104 mmol/L (98-107); Estimated CRCL calculation 68 ml/min; Estimated Glomerular Filt Rate > 60; Glucose 102 mg/dL (65-110); Potassium 3.7 mmol/L (3.4-5.0); Sodium 137 mmol/L (137-145)
--- NOTE | 2021-06-01 06:13 | PM.PNORT ---
Progress Note: A&P Additional Plan I discussed results of MRI scan lumbar spine with the patient. It shows acute mild superior endplate compression fracture of L3. in addition to this she has chronic moderate L2-3 and moderately severe L3-4 central canal stenosis. Denies any lower extremity weakness or numbness or tingling. Brace has been ordered should be applied today. I would recommend the patient after discharge follow up with a recruiting specialist and I will ask the hospitalist service to make these arrangements. I will see her back on an as-needed basis. Please call if any questions arise. Subjective Subjective Date/Time Seen: 06/01/21 06:13 Objective Data Vital Signs Vital Signs: Vital Signs - 24 hr 05/31/21 08:00 05/31/21 08:47 05/31/21 12:00 Temperature Pulse Rate 84 Respiratory Rate 16 Blood Pressure 167/68 H Pulse Oximetry 96 96 05/31/21 14:17 05/31/21 15:48 05/31/21 16:00 Temperature 36.1 C L Pulse Rate 84 Respiratory Rate 16 Blood Pressure 182/72 H 167/68 H 167/68 H Pulse Oximetry 96 05/31/21 21:42 Temperature 35.9 C L Pulse Rate 80 Respiratory Rate 18 Blood Pressure 172/61 H Pulse Oximetry 95 Intake/Output Intake/Output: Intake & Output 05/29/21 05/30/21 05/31/21 06/01/21 23:59 23:59 23:59 23:59 Intake Total 2960 1000 Output Total 4000 300 Balance -1040 700 Meds/Results Medications: Active Medications Generic Name Dose Route Start Last Admin Trade Name Freq PRN Reason Stop Dose Admin Hydrocodone Bitart/Acetaminophen 1 tab 05/31/21 16:00 05/31/21 16:18 Hydrocodone/Acetaminophen (*Crx) 5-325 Mg Tablet PO 1 tab Q4H PRN Administration Severe Pain Amlodipine Besylate 5 mg 05/31/21 11:30 05/31/21 12:18 Amlodipine Besylate 5 Mg Tablet PO 5 mg QAM DIONNE Administration Atorvastatin Calcium 20 mg 05/31/21 21:00 05/31/21 20:56 Atorvastatin 20 Mg Tablet PO 20 mg HS DIONNE Administration Clonazepam 1 mg 05/31/21 10:32 Clonazepam (*Crx) 0.5 Mg Tablet PO BID PRN Anxiety Fluoxetine HCl 20 mg 06/01/21 09:00 Fluoxetine Hcl 20 Mg Capsule PO DAILY DIONNE Hydralazine HCl 10 mg 05/31/21 11:05 05/31/21 13:15 Hydralazine Hcl 20 Mg/Ml Vial IV PUSH 10 mg Q8H PRN Administration Hypertension Sodium Chloride 1,000 mls @ 125 mls/hr 05/31/21 03:50 06/01/21 04:55 Normal Saline Iv IV CONT 125 mls/hr .Q8H DIONNE Administration Ketorolac Tromethamine 30 mg 05/31/21 16:00 06/01/21 04:53 Ketorolac 30 Mg/Ml Vial (*Bkc) IV PUSH 30 mg Q6H DIONNE Administration Levothyroxine Sodium 75 mcg 06/01/21 06:30 06/01/21 04:53 Levothyroxine Sodium 75 Mcg Tablet PO 75 mcg DAILY@0630 DIONNE Administration Lorazepam 2 mg 05/31/21 10:33 Lorazepam Inj (*Crx) 2 Mg/Ml Vial IV PUSH Q4HR PRN Alcohol Withdrawal Methylprednisolone Sodium Succinate 125 mg 05/31/21 14:40 Methylprednisolone Sod Succ 125 Mg Vial IV PUSH ONCE PRN Itching Pantoprazole Sodium 40 mg 06/01/21 09:00 Pantoprazole 40 Mg Tablet PO BID DIONNE Pantoprazole Sodium 40 mg 05/31/21 17:00 05/31/21 16:22 Pantoprazole 40 Mg Tablet PO 40 mg BID DIONNE Administration Trazodone HCl 150 mg 05/31/21 21:00 05/31/21 20:56 Trazodone Hcl 50 Mg Tablet PO 150 mg HS DIONNE Administration Radiology Results: ITS Impressions Head CT 05/31/21 06:55 IMPRESSION: 1. No acute intracranial abnormality. 2: Chronic age-related findings. Cervical Spine CT 05/31/21 07:05 IMPRESSION: 1. No acute fracture. 2: Mild cervical spondylosis. Lumbar Spine CT 05/31/21 07:25 IMPRESSION: 1. New superior endplate compression fracture of L3 since CT dated 12/15/2020, possibly acute. There is approximately 10% loss of vertebral body height. Venous Doppler Study 05/31/21 07:57 IMPRESSION: 1: No lower extremity deep venous thrombosis. Lumbar Spine MRI 05/31/21 13:00 IMP
[2021-06-01] MEDS: PANTOPRAZOLE 40 MG TABLET PO ×2 (09:04→16:12)
[2021-06-01] MEDS: FLUoxetine HCL 20 MG CAPSULE PO (09:05)
[2021-06-01] MEDS: amLODIPine BESYLATE 5 MG TABLET PO (09:05)
[2021-06-01] MEDS: clonazePAM (*CRX) 0.5 MG TABLET 1 MG PO (09:05)
[2021-06-01] MEDS: HYDROcodone/acetaminophen (*CRX) 5-325 MG TABLET 1 TAB PO ×2 (11:53→16:16)
--- NOTE | 2021-06-01 13:29 | PM.DS ---
DS: Admitting Diagnosis Discharge Date 06/01/2021 Admitting Diagnosis 1) Accidental Fall 2) Muscular Deconditioning 3) Swelling of RLE 4) Closed compression fx of lumbar vertebra 5) Alcohol use 6) HTN DS: Discharge Diagnosis Discharge Diagnosis (1) Fall: Qualifiers: Encounter type: initial encounter Qualified Code(s): W19.XXXA - Unspecified fall, initial encounter Code(s): W19.XXXA - Unspecified fall, initial encounter Status: Acute Assessment and Plan: - Continue Fall Precautions at home. - Pain medications as ordered. - PT and OT consult done and pt. will be discharging to home with home health. (2) Muscular deconditioning: Code(s): R29.898 - Other symptoms and signs involving the musculoskeletal system Status: Acute Assessment and Plan: - Treat pain as needed. - PT and OT consult. (3) Localized swelling of right lower extremity: Code(s): R22.41 - Localized swelling, mass and lump, right lower limb Status: Acute Assessment and Plan: - Patient with remote surgery and grafting to that leg by vascular surgery. - Chronic swelling however worsened according to patient, and mildly erythematous. - Venous Doppler negative for any DVT. Distal pulses good without any mottling or signs of vascular compromise. - Labs completed to this point do not reflect any acute infection such as Cellulitis, however will order Inflammatory markers (CRP, Sed Rate) and a Procalcitonin. - Procalc was normal, There is elevation of CRP and sed rate, but also that could be due to the acute inflammation in her back from the fracture. (4) Closed compression fracture of lumbar vertebra: Qualifiers: Encounter type: initial encounter Lumbar vertebra fracture level: L3 Qualified Code(s): S32.030A - Wedge compression fracture of third lumbar vertebra, initial encounter for closed fracture Code(s): S32.000A - Wedge compression fracture of unspecified lumbar vertebra, initial encounter for closed fracture Status: Acute Assessment and Plan: - Pain meds as needed. - Orthopedic consult - TLSO Brace ordered to be worn when up and removed only when lying in bed. - PT and OT consult with PT recommending discharge and ok with home health. - Case Management to assist with Rehab placement. - TLSO brace being applied before discharge today. (5) Alcohol use: Code(s): Z72.89 - Other problems related to lifestyle Status: Acute Assessment and Plan: - CIWA scoring Q4, may discontinue when <8 for 24 hours. - PRN Ativan as needed for alcohol Withdrawl - Monitor (6) Hypertension: Qualifiers: Hypertension type: unspecified Qualified Code(s): I10 - Essential (primary) hypertension Code(s): I10 - Essential (primary) hypertension Status: Acute Assessment and Plan: - Not medicated for at home. - Running high. On presentation was 200/103. Now running 190s/70s-80s. - Will order prn Hydralazine with parameters of to give for SBP>180 and DBP>90. - Will start scheduled Norvasc 5 mg po daily in AM. - Monitor DS: Summary Hospital Course Reason for hospitalization: Fall Hospital Course: This 70 year old female patient with history of peripheral arterial disease status post bypass grafting in of the right lower extremity and HTN was admitted to the hospital for pain control and mangement following a fall at home where she rolled off of her couch and laid there for approximately 2 days. Upon EMS arrival to ER she was worked up and it was found that she has a Compression fracture of L3 with 10% disc height loss. There was some concern for possible developing diskitis as gas was potentially noted in CT. However, MRI did not reflect that same finding and pt. has been without any objective finding of infection. She has been evaluated and cleared by Orthopedics with orders for a TLSO brace to be placed and will need a referral to a spine specia
--- NOTE | 2021-06-01 15:20 | PCPTNOTE ---
Patient declined PT stating I walked to the bathroom and back with the other therapy. I am waiting to go home. Patient denies having any concerns or questions.
== END 2021-06-01 17:00 | disposition home health service (06) ==
LOC: ANHED 01:45 → ANH3MED 04:10
PROVIDERS: Physician Assistant; Admitting Provider Internal Medicine; Emergency Provider Emergency Medicine; PCP Family Medicine; Visit Provider Nurse Practitioner Adult Health
DX: S32.030A Wedge compression fracture of third lumbar vertebra, initial encounter for closed fracture (principal); R22.41 Localized swelling, mass and lump, right lower limb; R29.898 Other symptoms and signs involving the musculoskeletal system; W08.XXXA Fall from other furniture, initial encounter; E03.9 Hypothyroidism, unspecified; I49.3 Ventricular premature depolarization; Z87.891 Personal history of nicotine dependence; Z72.89 Other problems related to lifestyle
CPT/HCPCS: 36415; 51701; 70450; 72125; 72131; 72148; 80053; 81001; 82550; 84145; 84484; 85025; 85055; 85652; 86140; 93005; 93971; 96361; 96372; 96374; 96375; 96376; 97161; 97165; 97535; 99285; A9270; G0378; J0360; J1650; J1885; J7030

== ENCOUNTER 2021-09-01 03:38 | Emergency (ER) | payer MEDICARE, SELFPAY ==
[2021-09-01] VITALS (8 sets, daily range): BP systolic 110–144; BP diastolic 64–83; PULSE 82–89; RESP 16–18; TEMP 36.4; O2SAT 95–100
--- NOTE | ~2021-09-01 | CT_ITS ---
. EXAMINATION: CT facial bones wo con DATE: 09/01/2021 04:57 INDICATION: Left facial injury. TECHNIQUE: Computed tomography (CT) of the facial bones and maxillofacial region was performed withou t intravenous contrast. Automated exposure control and iterative reconstruction technique were employ ed. The dose-length product was 519.91 mGy-cm. COMPARISON: Maxillofacial CT 12/14/2020 FINDINGS: There are likely changes of ocular lens replacement surgeries. There is left cheek soft tis liliana swelling. There is leftward deviation of the nasal septum. No fracture. There is mild mucosal thi ckening in the paranasal sinuses. IMPRESSION: 1. No fracture. Reviewed, dictated and finalized at location A. IMPRESSION: 1. No fracture.
--- NOTE | ~2021-09-01 | CT_ITS ---
EXAMINATION: CT brain wo con DATE: 09/01/2021 04:57 INDICATION: Head injury. TECHNIQUE: Computed tomography (CT) of the head was performed without intravenous contrast. The mA wa s adjusted according to patient size. Iterative reconstruction technique was employed. The dose-lengt h product was 605.33 mGy-cm. COMPARISON: Head CT 05/31/2021 FINDINGS: There are scattered areas of low attenuation in the cerebral white matter, which is within normal limits for the patient's age. There is no intracranial hemorrhage, acute infarction, or abnorm al intracranial mass lesion. The ventricles are normal in size. There is mild mucosal thickening in t he paranasal sinuses. There are likely changes of ocular lens replacement surgeries. The mastoid air cells are normal. IMPRESSION: 1. Normal aging brain. Reviewed, dictated and finalized at location A. IMPRESSION: 1. Normal aging brain.
--- NOTE | 2021-09-01 04:44 | ED.FALL ---
HPI - Fall General Chief Complaint: Fall Stated Complaint: neck & back pain s/p fall Time Seen by Provider: 09/01/21 04:08 History of Present Illness HPI Narrative: 62-year-old female presented to the emergency department for evaluation after having a ground-level fall. Patient states she was using her walker and walking to the bathroom when she fell forward striking her face on the ground. Patient does complain of some left facial soreness. Patient denies any loss consciousness. Patient is not taking any blood thinners. Patient denies any other pain or injury at this time. Related Data Home Medications Medication Instructions Recorded Confirmed atorvastatin 20 mg tablet 20 mg PO HS 05/31/21 05/31/21 clonazepam 1 mg tablet 1 mg PO BID PRN Anxiety 05/31/21 05/31/21 diclofenac sodium 75 mg 75 mg PO BID PRN Pain (Scale Score 05/31/21 05/31/21 tablet,delayed release 4-6) fluoxetine 20 mg tablet 20 mg PO DAILY 05/31/21 05/31/21 levothyroxine 75 mcg tablet 75 mcg PO DAILY 05/31/21 05/31/21 omeprazole 40 mg capsule,delayed 40 mg PO DAILY 05/31/21 05/31/21 release trazodone 150 mg tablet 150 mg PO HS 05/31/21 05/31/21 Allergies Allergy/AdvReac Type Severity Reaction Status Date / Time Iodinated Contrast Media Allergy Severe DIFFICULTY Verified 05/31/21 06:05 BREATHING ampicillin Allergy Unknown Unknown Verified 05/31/21 06:05 iodine Allergy Unknown Difficulty Verified 05/31/21 06:05 Breathing Penicillins Allergy Unknown Unknown Verified 05/31/21 06:05 shellfish derived Allergy Unknown Difficulty Verified 05/31/21 06:05 Breathing Review of Systems Review of Systems: CONSTITUTIONAL: Denies fever, chills, or sweats. EYES: Denies visual changes, redness, or discharge. ENT: Denies rhinorrhea, congestion, sore throat, or otalgia. CARDIOVASCULAR: Denies chest pain, palpitations, or edema. RESPIRATORY: Denies cough or dyspnea. GASTROINTESTINAL: Denies abdominal pain, nausea, vomiting, or diarrhea. GENITOURINARY: Denies dysuria or hematuria. SKIN: Denies rash or itching. MUSCULOSKELETAL: See HPI NEUROLOGIC: Denies headache, numbness, or weakness. [facility] Past Medical History Medical History (Updated 09/01/21 @ 06:57 by Chemo Byrd MD) Hypothyroidism Surgical History Surgical History (Updated 05/31/21 @ 04:20 by Ana Kennedy PA-C) H/O vascular surgery H/O: hysterectomy Hx of appendectomy Family History Family History Grandparent Hypertension Cerebrovascular accident Diabetes mellitus Mother Family history of lung cancer Family history of malignant neoplasm Father Patient's father is Social History Social History Smoking packs per day: 1 Smoking cigarettes per day: 20.0 Years smoked: 52 Smoking pack-years: 52.00 Smoking status: Former smoker Tobacco type: cigarettes Second hand tobacco smoke exposure: Yes Smoking end date: 05/11/20 Alcohol intake: former Substance use: never Spiritual care concerns: No Exam Narrative: APPEARANCE: Well appearing, no pain, no distress, well-nourished. HEAD: normocephalic, some left-sided facial tenderness to palpation. No significant swelling or ecchymosis. EYES: PERRLA/EOMI, conjunctivae clear. NOSE: Normal no drainage NECK: Supple. No adenopathy, no masses. RESPIRATORY: Airway patent, respirations nonlabored. Clear to auscultation bilaterally, no rales, rhonchi, wheezing. CARDIOVASCULAR: Regular rate and rhythm without murmurs rubs or gallops. ABDOMINAL: Soft, nontender, nondistended, normal bowel sounds MUSCULOSKELETAL: Moves all extremities. Strength/ROM intact, No edema, No calf tenderness. NEURO: Alert. Cranial nerves II through XII intact. Grossly intact SKIN: Warm, dry. Normal Color Course Vital Signs Vital signs: Vital Signs Temperature 97.6 F 09/01/21 03:44 Pulse Rate 8
== END 2021-09-01 07:25 | disposition home or self-care (01) ==
PROVIDERS: Emergency Provider Emergency Medicine; PCP Family Medicine
DX: S09.90XA Unspecified injury of head, initial encounter (principal); W18.30XA Fall on same level, unspecified, initial encounter; E03.9 Hypothyroidism, unspecified
CPT/HCPCS: 70450; 70486; 99284; L0140

== ENCOUNTER 2023-02-13 10:14 | Emergency (ER) | payer MEDICARE, SELFPAY ==
[2023-02-13 10:30] VITALS: BP 162/83; PULSE 88; RESP 18; TEMP 36.3; O2SAT 98
--- NOTE | 2023-02-13 10:31 | ECG_ITS ---
Measurements Intervals [place] Rate: 87 P: 34 CT: 165 QRS: 69 QRSD: 91 T: 135 QT: 380 QTc: 459 Interpretive Statements SINUS RHYTHM T-WAVE ABNORMALITY CONSIDER LATERAL ISCHEMIA ABNORMAL ECG COMPARED TO ECG 05/31/2021 02:04:16 ST (T WAVE) DEVIATION NOW PRESENT Electronically Signed On 02-13-2023 15:19:15 RUBBER DOWN by Demetrio Dominique M.D.
== END 2023-02-13 14:23 | disposition left against medical advice (07) ==
PROVIDERS: Emergency Provider Emergency Medicine
DX: R07.9 Chest pain, unspecified (principal)
CPT/HCPCS: 93005; 99199

== ENCOUNTER 2023-06-06 03:52 | Emergency (ER) | payer MEDICARE, SELFPAY ==
[2023-06-06] VITALS (13 sets, daily range): BP systolic 120–152; BP diastolic 58–83; PULSE 96–97; RESP 16–18; TEMP 36.6–37.1; O2SAT 94–100
--- NOTE | 2023-06-06 04:09 | ED.GENADULT ---
HPI - General Adult General Chief complaint: Unspecified <Radha Daly MD - Last Filed: 06/06/23 21:16> Stated complaint: losing her mind <Radha Daly MD - Last Filed: 06/06/23 21:16> Time Seen by Provider: 06/06/23 04:00 <Radha Daly MD - Last Filed: 06/06/23 21:16> History of Present Illness HPI narrative: Patient is 72-year-old female who presents to the emergency department this morning stating that she thinks she had a mental breakdown. Patient admits to me that her recently approximately 5 months ago and has been very difficult for her living alone as she feels as though she lost part her. Patient denies any suicidal or homicidal ideations at this time. Patient is seeking help with assisted living facility. She currently has a nurse that comes to her house and helps her with a few things 3 times a week and patient states that that is working well for her, however, she wants to be in an assisted living facility where she is around more people and has a more structured day as she believes this will help her tremendously with her mental well being. Patient is currently denying any physical symptoms at this time. There are no other modifying, alleviating, or precipitating factors. <Radha Daly MD - Last Filed: 06/06/23 21:16> Related Data Home medications: Home Medications Medication Instructions Recorded Confirmed atorvastatin 20 mg tablet 20 mg PO HS 05/31/21 05/31/21 clonazepam 1 mg tablet 1 mg PO BID PRN Anxiety 05/31/21 05/31/21 diclofenac sodium 75 mg 75 mg PO BID PRN Pain (Scale Score 05/31/21 05/31/21 tablet,delayed release 4-6) fluoxetine 20 mg tablet 20 mg PO DAILY 05/31/21 05/31/21 levothyroxine 75 mcg tablet 75 mcg PO DAILY 05/31/21 05/31/21 omeprazole 40 mg capsule,delayed 40 mg PO DAILY 05/31/21 05/31/21 release trazodone 150 mg tablet 150 mg PO HS 05/31/21 05/31/21 <Radha Daly MD - Last Filed: 06/06/23 21:16> Allergies/adverse reactions: Allergies Allergy/AdvReac Type Severity Reaction Status Date / Time Iodinated Contrast Media Allergy Severe DIFFICULTY Verified 06/06/23 04:00 BREATHING ampicillin Allergy Unknown Unknown Verified 06/06/23 04:00 iodine Allergy Unknown Difficulty Verified 06/06/23 04:00 Breathing Penicillins Allergy Unknown Unknown Verified 06/06/23 04:00 shellfish derived Allergy Unknown Difficulty Verified 06/06/23 04:00 Breathing <Radha Daly MD - Last Filed: 06/06/23 21:16> Review of Systems Review of Systems: All systems are reviewed and are negative unless stated otherwise in the HPI. <Radha Daly MD - Last Filed: 06/06/23 21:16> PMFSH Past Medical History Medical History: Medical History Hypothyroidism <Radha Daly MD - Last Filed: 06/06/23 21:16> Surgical History Surgical History: Surgical History H/O vascular surgery H/O: hysterectomy Hx of appendectomy <Radha Daly MD - Last Filed: 06/06/23 21:16> Family History Family History: Family History Grandparent Hypertension Cerebrovascular accident Diabetes mellitus Mother Family history of lung cancer Family history of malignant neoplasm Father Patient's father is <Radha Daly MD - Last Filed: 06/06/23 21:16> Social History Social History: Social History Smoking packs per day: 1 Smoking cigarettes per day: 20.0 Years smoked: 52 Smoking pack-years: 52.00 Smoking status: Former smoker Tobacco type: cigarettes Second hand tobacco smoke exposure: Yes Smoking end date: 05/11/20 Alcohol intake: former Substance use: never Spiritual care concerns: No <Radha Daly MD -
--- NOTE | 2023-06-06 06:32 | PC.NURSE ---
Pt remains A+O X 4 and waiting for care coordination. Pt requesting something to drink and maybe a nerve pill.
[2023-06-06] MEDS: LORazepam (*CRX) 1 MG TABLET PO (07:23)
--- NOTE | 2023-06-06 07:59 | PC.NURSE ---
Salima in care coordination coming to ER to speak with patient.
--- NOTE | 2023-06-06 13:56 | PCCCNOTE ---
CC called to the ED for possible placement of this pt. Pt wants to go to assisted living. She has already spoken to the assisted living facility she is going into. Pt declined needing my assistance at this time.
== END 2023-06-06 09:18 | disposition home or self-care (01) ==
PROVIDERS: Emergency Provider Family Medicine
DX: F41.9 Anxiety disorder, unspecified (principal); E03.9 Hypothyroidism, unspecified; Z90.710 Acquired absence of both cervix and uterus
CPT/HCPCS: 99284; A9270

== ENCOUNTER 2023-07-20 13:02 | Inpatient (IN) | payer MEDICARE, SELFPAY ==
--- NOTE | ~2023-07-20 | CT_ITS ---
EXAMINATION: CT brain wo con DATE: 07/20/2023 15:34 INDICATION: Weakness and dizziness post fall 2 days prior TECHNIQUE: Computed tomography (CT) of the head was performed without intravenous contrast. Sagittal and coronal reconstructions were performed. The mA was adjusted according to patient size. Iterative reconstruction technique was employed. The dose-length product was 681.00 mGy-cm. COMPARISON: head CT dated 09/01/2021 FINDINGS: No fracture. No acute intracranial hemorrhage or abnormal extra-axial fluid collection. Small old inf arct new since the prior study extending between the right caudate nucleus across anterior limb of th e right internal capsule and into the right lentiform nucleus. Additional small unchanged old lacunar infarct in the right frontal lobe periventricular white matter. There are a couple small regions of loss of pond-white matter differentiation in the right occipital and parietal lobes suspicious for ad ditional infarcts which could be more recent, potentially acute. There is mild scattered white matter hypoattenuation consistent with chronic small vessel ischemic disease. Symmetric prominence of the s ulci and ventricles consistent with mild age-appropriate diffuse cerebral volume loss. No mass/mass e ffect. Changes of bilateral intraocular lens replacement. There are a couple mucous retention cyst in the right sphenoid sinus. Calcified osteoma at the right frontoethmoidal recess. Mastoid air cells a re normal. IMPRESSION: 1. No fracture or acute intracranial hemorrhage. 2. A few small old infarcts as well as the few additional age-indeterminate small regions of loss of pond-white matter differentiation without definitive encephalomalacia which could represent more rece nt, potentially acute or subacute infarcts. 3. Age-related changes including mild to moderate diffuse volume loss and mild scattered white matter hypoattenuation consistent with chronic small vessel ischemic disease. Reviewed, dictated and finalized at location A. IMPRESSION: 1. No fracture or acute intracranial hemorrhage. 2. A few small old infarcts as well as the few additional age-indeterminate sma ll regions of loss of pond-white matter differentiation without definitive ence phalomalacia which could represent more recent, potentially acute or subacute i nfarcts. 3. Age-related changes including mild to moderate diffuse volume loss and mild scattered white matter hypoattenuation consistent with chronic small vessel isc hemic disease.
--- NOTE | ~2023-07-20 | MR_ITS ---
EXAMINATION: MRA brain wo con DATE: 07/27/2023 15:10 INDICATION: Acute infarct of right temporal parietal occipital region. TECHNIQUE: Magnetic resonance angiography (MRA) of the brain was performed without intravenous contra st with T1-weighted SPGR by the 3D [id number]-ma-ampmay technique. Maximum intensity projection 3D-reconstr uctions were obtained. COMPARISON: Brain MRI 07/21/2023 FINDINGS: The vertebral arteries are codominant. There is no significant stenosis of basilar artery. Left poste rior cerebral artery is small. The posterior communicating arteries are normal. There is no significa nt stenosis of the intracranial internal carotid arteries or anterior cerebral arteries. Anterior com municating artery is normal. There is total occlusion of proximal right middle cerebral artery. There is no aneurysm. IMPRESSION: 1. 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 2. Small left posterior cerebral artery, which may be the sequela of chronic arterial occlusive disea se. Reviewed, dictated and finalized at location E. IMPRESSION: 1. 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 2. Small left posterior cerebral artery, which may be the sequela of chronic ar terial occlusive disease.
--- NOTE | ~2023-07-20 | US_ITS ---
EXAMINATION: US carotid duplex BI DATE: 07/21/2023 17:34 INDICATION: Stroke. Vertigo. TECHNIQUE: Grayscale, color Doppler, and pulsed Doppler images of the cervical carotid arteries were obtained. The degree of vessel stenosis is placed in one of the following categories: normal, <50%, 5 0-69%, >=70% but less than near-occlusion, near-occlusion, or total occlusion. Note that percent sten osis relative to normal distal artery lumen diameter is indirectly measured from velocity measurement s as described by Natan, et al. Radiology 2003; 229:340-346. COMPARISON: None. FINDINGS: RIGHT: The right common carotid artery (CCA) peak systolic velocity (PSV) is 20 cm/s. The right internal car otid artery (ICA) PSV is 61 cm/s. The right ICA end-diastolic velocity (EDV) is 13 cm/s. The right IC A/CCA PSV ratio is 3.0. Grayscale and color Doppler images yield an estimate of <50% diameter reducti on from plaque in the ICA. The external carotid artery (ECA) PSV is 87 cm/s. There is antegrade flow in the right vertebral artery. LEFT: The left CCA PSV is 40 cm/s. The left ICA PSV is 140 cm/s. The left ICA EDV is 20 cm/s. The left ICA/ CCA PSV ratio is 3.5. Grayscale and color Doppler images yield an estimate of 50-69% diameter reducti on from plaque in the ICA. The ECA PSV is 300 cm/s. There is antegrade flow in the left vertebral art graham. IMPRESSION: 1. <50% stenosis in the right internal carotid artery. 2. 50-69% stenosis in the left internal carotid artery. Reviewed, dictated and finalized at location A.
--- NOTE | ~2023-07-20 | XR_ITS ---
EXAMINATION: XR chest 2V DATE: 07/20/2023 15:21 INDICATION: Fall. Weakness and dizziness. TECHNIQUE: Frontal and lateral views of the chest were obtained. COMPARISON: Chest 2 views 02/14/2012 FINDINGS: A calcified left lung nodule and calcified right hilar lymph nodes are consistent with old granulomatous disease. No pleural effusion or pneumothorax. The heart size is normal. There are old h ealed rib fractures bilaterally. There is plate and screw fixation of right humerus. IMPRESSION: 1. No acute cardiopulmonary disease. Reviewed, dictated and finalized at location A.
--- NOTE | ~2023-07-20 | MR_ITS ---
EXAMINATION: MR brain/brain stem wo con DATE: 07/21/2023 15:19 INDICATION: Weakness and dizziness TECHNIQUE: Magnetic resonance imaging (MRI) of the brain and brainstem was performed without intraven ous contrast. Sequences included sagittal and axial T1-weighted SE, axial diffusion-weighted FS SE, a xial 3D SWAN, axial T2-weighted FLAIR, and axial T2-weighted FSE. Postcontrast axial and coronal T1-w eighted SE was obtained. Apparent diffusion coefficient (ADC) maps were created. COMPARISON: 07/20/2023 FINDINGS: Moderate-sized region of restricted diffusion in the right temporal parietal occipital region consist ent with acute infarct which corresponds to the region of decreased parenchymal attenuation identifie d on the prior CT. Couple additional unchanged small regions of encephalomalacia consistent with photo graphics librarian stacey lacunar infarcts in the right frontal lobe periventricular white matter and at the right basal ga nglia extending from the caudate nucleus, across the posterior limb of the internal capsule to the po sterior right lentiform nucleus. No intracranial hemorrhage or abnormal intracranial mass lesion. There are scattered areas of nonspe cific increased T2-weighted signal intensity in the cerebral white matter, predominantly involving th e deep and periventricular white matter which is within normal limits for age and likely sequela of c hronic small vessel ischemic disease. There are no intraparenchymal signal abnormalities seen on the other pulse sequences. Symmetric prominence of the sulci and ventricles consistent with mild age-appr opriate diffuse cerebral volume loss. There are no abnormal extra-axial fluid collections. Flow voids are seen in the cerebral arteries on the T2-weighted sequences consistent with their expected patenc y. Mucous retention cyst in the right sphenoid sinus and small amount of dependently layering fluid i n the left sphenoid sinus. Osteoma the right frontoethmoidal recess. Visualized orbits and soft tissu es are unremarkable. IMPRESSION: 1. Acute infarct in the right temporoparietooccipital region. 2. A couple additional unchanged small old lacunar infarcts in the right frontal lobe white matter an d right basal ganglia and mild ventricular predominant specific white matter T2 hyperintensity consis tent with chronic small vessel ischemic disease. Reviewed, dictated and finalized at location A. IMPRESSION: 1. Acute infarct in the right temporoparietooccipital region. 2. A couple additional unchanged small old lacunar infarcts in the right fronta l lobe white matter and right basal ganglia and mild ventricular predominant sp ecific white matter T2 hyperintensity consistent with chronic small vessel isch emic disease.
[2023-07-20 13:16] VITALS: BP 134/51; PULSE 80; RESP 17; TEMP 36.6; O2SAT 97
--- NOTE | 2023-07-20 14:53 | ED.GENADULT ---
HPI - General Adult General Chief complaint: Weakness <Dalia Randall APRN - Last Filed: 07/20/23 15:00> Stated complaint: weakness <Dalia Randall APRN - Last Filed: 07/20/23 15:00> Time Seen by Provider: 07/20/23 14:53 <Dalia Randall APRN - Last Filed: 07/20/23 15:00> Focused HPI: Marily Acevedo is a 72 y/o female who presents with reports of having a ground level mechanical fall 2 days ago. She denies hitting her head/ no LOC she states she was able to get back up after the fall. Today she states she was laying on her futon for half the night and her back hurt so she pressed her fall alert button and the EMS came and brought her here. She states she has ambulated since the fall she no longer has the back pain since she got off the futon. Denies chest pain/ denies SOB/ GENERAL: and in no acute distress. HEAD: Normocephalic, atraumatic. CHEST: Clear to auscultation. ?No respiratory distress. HEART: Regular rate and rhythm.? NEURO: ?Alert oriented to self/ place/ she thinks its 1970s and doesn't know the month -she thinks she might of felt confused for a couple days. Patient screened in triage and initial orders placed.? ?Additional care and disposition to be based upon?diagnostic testing and treatment. <Dalia Randall ELECTRICAL MAINTENANCE ENGINEER - Last Filed: 07/20/23 15:00> History of Present Illness HPI narrative: Agree with HPI. Patient too weak to ambulate. Has confusion about when her . patient currently covered in stool because she was confused while in the bathroom. <Nathaniel Cooney MD - Last Filed: 07/20/23 18:51> Related Data Home medications: Home Medications Medication Instructions Recorded Confirmed atorvastatin 20 mg tablet 20 mg PO HS 05/31/21 05/31/21 clonazepam 1 mg tablet 1 mg PO BID PRN Anxiety 05/31/21 05/31/21 diclofenac sodium 75 mg 75 mg PO BID PRN Pain (Scale Score 05/31/21 05/31/21 tablet,delayed release 4-6) fluoxetine 20 mg tablet 20 mg PO DAILY 05/31/21 05/31/21 levothyroxine 75 mcg tablet 75 mcg PO DAILY 05/31/21 05/31/21 omeprazole 40 mg capsule,delayed 40 mg PO DAILY 05/31/21 05/31/21 release trazodone 150 mg tablet 150 mg PO HS 05/31/21 05/31/21 <Dalia Randall, ELECTRICAL MAINTENANCE ENGINEER - Last Filed: 07/20/23 15:00> Allergies/adverse reactions: Allergies Allergy/AdvReac Type Severity Reaction Status Date / Time Iodinated Contrast Media Allergy Severe DIFFICULTY Verified 06/06/23 04:00 BREATHING ampicillin Allergy Unknown Unknown Verified 06/06/23 04:00 iodine Allergy Unknown Difficulty Verified 06/06/23 04:00 Breathing Penicillins Allergy Unknown Unknown Verified 06/06/23 04:00 shellfish derived Allergy Unknown Difficulty Verified 06/06/23 04:00 Breathing <Dalia Randall, ELECTRICAL MAINTENANCE ENGINEER - Last Filed: 07/20/23 15:00> Review of Systems Review of Systems: ROS unobtainable: Yes unobtainable due to mental status <Nathaniel Cooney MD - Last Filed: 07/20/23 18:51> PMFSH Past Medical History Medical History: Medical History Hypothyroidism <Dalia Randall ELECTRICAL MAINTENANCE ENGINEER - Last Filed: 07/20/23 15:00> Surgical History Surgical History: Surgical History H/O vascular surgery H/O: hysterectomy Hx of appendectomy <Dalia Randall ELECTRICAL MAINTENANCE ENGINEER - Last Filed: 07/20/23 15:00> Family History Family History: Family History Grandparent Hypertension Cerebrovascular accident Diabetes mellitus Mother Family history of lung cancer Family history of malignant neoplasm Father Patient's father is <Dalia Randall ELECTRICAL MAINTENANCE ENGINEER - Last Filed: 07/20/23 15:00> Social History Social History: Social History Smoking packs per day: 1 Smoking cigarettes per day: 20.0 Years smoked: 52 Smoking pack-years: 52.00 Smoking status: Former smoker
[2023-07-20 16:06] LABS: Basophils Absolute Auto 0.1 K/mm3 (0.0-0.1); Basophils Percent Auto 0.5 % (0.2-1.2); Eosinophils Absolute Auto 0.1 K/mm3 (0-0.3); Hematocrit 51.6 % (37.0-47.0); Immature Granulocyte Percent A 0.8 % (0-0.5); Lymphocytes Percent Auto 11.5 % (18.3-44.2); Mean Corpuscular HGB Conc 32.9 g/dl (32-36); Mean Corpuscular Hemoglobin 32.3 pg (26-34); Mean Corpuscular Volume 97.9 fl (80-100); Mean Platelet Volume 9.9 fl (7.4-10.4); Monocytes Percent Auto 7.9 % (2.6-8.5); Neutrophils Absolute Auto 9.5 K/mm3 (1.3-6.7); Neutrophils Percent Auto 78.3 % (45.5-73.1); Platelet Count Result 321 k/mm3 (150-375); Red Blood Count 5.27 M/mm3 (4.2-5.4); Red Cell Distribution Width 13.3 % (11.5-14.5); White Blood Count 12.1 K/mm3 (4.5-10.0)
[2023-07-20 16:15] LABS: Alanine Aminotransferase 61 U/L (6-35); Albumin Level 4.8 g/dL (3.5-5.1); Alkaline Phosphatase 114 U/L (38-126); Anion Gap 11 mmol/L (4-12); Aspartate Amino Transferase 52 U/L (14-36); Blood Urea Nitrogen 9 mg/dL (7-17); Calcium 10.4 mg/dL (8.4-10.2); Carbon Dioxide 26 mmol/L (22-30); Chloride 96 mmol/L (98-107); Estimated CRCL calculation 62 ml/min; Estimated Glomerular Filt Rate > 60; Glucose 119 mg/dL (65-110); Potassium 4.2 mmol/L (3.4-5.0); Sodium 133 mmol/L (137-145)
[2023-07-20 16:16] LABS: Appearance Urine Turbid (Clear); Bacteria Urine 4+ /hpf; Bilirubin Urine Negative (Negative); Blood Urine 1+ (Negative); Color Urine Dark Yellow (Yellow); Glucose Urine UA Negative (Negative); Ketones Urine Trace mg/dL (Negative); Leukocyte Esterase Ur 3+ LEU/UL (Negative); Need Manual Microscopic Reviewed; Nitrate Urine Positive (Negative); Protein Urine Negative (Negative); Specific Grav Ur 1.012 (1.001-1.035); Squamous Epithelial Cell Urine Occasional /hpf (Few); Urobilinogen Urine 0.2 mg/dL (<2.0); WBC Urine >100 /hpf (0-3)
[2023-07-20 16:28] LABS: Add Urine Microscopic? YES
[2023-07-20] MEDS: SODIUM CHLORIDE 0.9% IV 1,000 ML 999 ML IV CONT (17:50)
--- NOTE | 2023-07-20 19:19 | PC.NURSE ---
this rn assumed care of patient. this rn took patient report from SHAJI Rehman.
[2023-07-20] MEDS: SODIUM CHLORIDE 0.9% IV 1,000 ML 125 ML IV CONT (19:27)
[2023-07-20 19:29] VITALS: BP 124/74; PULSE 102; RESP 18; O2SAT 100
--- NOTE | 2023-07-20 20:43 | PM.IMHP ---
H&P: HPI History of Present Illness Date/Time: 07/20/23 20:43 Chief Complaint: altered mental status Narrative: This is a 72-year-old female with past medical history significant for dyslipidemia, depression. Patient was brought to the emergency room due to generalized weakness, had a fall 2 days prior. While in emergency room patient had episode of disorientation. At the time of my visit patient was incoherent was unable to contribute in a meaningful way to history taking. Preliminary workup was significant for urinalysis with numerous WBCs present. EXAMINATION: XR chest 2V DATE: 07/20/2023 15:21 INDICATION: Fall. Weakness and dizziness. TECHNIQUE: Frontal and lateral views of the chest were obtained. COMPARISON: Chest 2 views 02/14/2012 FINDINGS: A calcified left lung nodule and calcified right hilar lymph nodes are consistent with old granulomatous disease. No pleural effusion or pneumothorax. The heart size is normal. There are old healed rib fractures bilaterally. There is plate and screw fixation of right humerus. IMPRESSION: 1. No acute cardiopulmonary disease. EXAMINATION: CT brain wo con DATE: 07/20/2023 15:34 INDICATION: Weakness and dizziness post fall 2 days prior TECHNIQUE: Computed tomography (CT) of the head was performed without intravenous contrast. Sagittal and coronal reconstructions were performed. The mA was adjusted according to patient size. Iterative reconstruction technique was employed. The dose-length product was 681.00 mGy-cm. COMPARISON: head CT dated 09/01/2021 FINDINGS: No fracture. No acute intracranial hemorrhage or abnormal extra-axial fluid collection. Small old infarct new since the prior study extending between the right caudate nucleus across anterior limb of the right internal capsule and into the right lentiform nucleus. Additional small unchanged old lacunar infarct in the right frontal lobe periventricular white matter. There are a couple small regions of loss of pond-white matter differentiation in the right occipital and parietal lobes suspicious for additional infarcts which could be more recent, potentially acute. There is mild scattered white matter hypoattenuation consistent with chronic small vessel ischemic disease. Symmetric prominence of the sulci and ventricles consistent with mild age-appropriate diffuse cerebral volume loss. No mass/mass effect. Changes of bilateral intraocular lens replacement. There are a couple mucous retention cyst in the right sphenoid sinus. Calcified osteoma at the right frontoethmoidal recess. Mastoid air cells are normal. IMPRESSION: 1. No fracture or acute intracranial hemorrhage. 2. A few small old infarcts as well as the few additional age-indeterminate small regions of loss of pond-white matter differentiation without definitive encephalomalacia which could represent more recent, potentially acute or subacute infarcts. 3. Age-related changes including mild to moderate diffuse volume loss and mild scattered white matter hypoattenuation consistent with chronic small vessel ischemic disease. Review of Systems Review of Systems: ROS unobtainable: Yes unobtainable due to mental status ( Delirium) PMFSH Past Medical History Medical History Hypothyroidism Surgical History Surgical History H/O vascular surgery H/O: hysterectomy Hx of appendectomy Family History Family History Grandparent Hypertension Cerebrovascular accident Diabetes mellitus Mother Family history of lung cancer Family history of malignant neoplasm Father Patient's father is Social History Social History Smoking packs per day: 1 Smoking cigarettes per day: 20.0 Years smoked: 52 Smoking pack-years: 52.00 Smoking
--- NOTE | 2023-07-20 20:55 | ADMGEN ---
This patient, Marily Acevedo, was admitted to Medical Room 246-01. Patient/family oriented to hospital policies and general routines including ID bracelet, bed and alarms, visiting hours, pain management, procedures, bathroom and other care routines, personal items, smoking policy, room service/diet, and visiting hours. Information on how to activate the Rapid Response Team has been discussed. Patient/Family are encouraged to report perceived risks to care and to ask questions if they do not understand what they are told or what they should do.
[2023-07-20 20:57] VITALS: BP 126/62; PULSE 96; RESP 20; TEMP 36.3; O2SAT 98
[2023-07-20 20:58] VITALS: BMI 27.6
--- NOTE | 2023-07-20 21:30 | PC.NURSE ---
Pt is confused/agitated and unable to provide much information. Pt does not know her medications and there is no current med list externally.
[2023-07-21 01:57] VITALS: O2SAT 97
[2023-07-21] MEDS: traZODone HCL 50 MG TABLET PO (03:10)
[2023-07-21 04:22] VITALS: BP 133/52; PULSE 84; RESP 20; TEMP 36.2; O2SAT 97
--- NOTE | 2023-07-21 06:32 | PC.NURSE ---
Pt remains confused she was attempting to reach out to her brother on her cell phone and allowed RN to obtain his number off her cell. I placed a call to Blue her brother who stated that he was her next of kin and would be the one to reach out to for information or decision making. Blue stated that Marily has been having issues with confusion and gets agitated with others. He has been attempting to get her to move closer to him into a assisted living but when he tried to get her to go with him she becomes angry and refuses.
[2023-07-21 12:39] VITALS: BMI 27.2
--- NOTE | 2023-07-21 12:53 | PM.IMPN ---
Progress Note: A&P Assessment and Plan (1) Acute UTI: Code(s): N39.0 - Urinary tract infection, site not specified Status: Acute Assessment and Plan: UA with positive nitrate, 3+ LE, 3-5 rbc's and greater than 100 wbc's Patient started on Rocephin. IV fluids continue. Urine culture pending. Adjust antibiotic therapy to culture results. (2) CVA (cerebral vascular accident): Code(s): I63.9 - Cerebral infarction, unspecified Status: Acute Assessment and Plan: CT Head no fracture or acute intracranial hemorrhage. A few small old infarcts as well as the few additional age-indeterminate small regions of loss of pond-white matter differentiation without definitive encephalomalacia which could represent more recent, potentially acute or subacute infarcts. MRI ordered. Consider consulting Neurology. (3) Metabolic encephalopathy: Code(s): G93.41 - Metabolic encephalopathy Status: Acute Assessment and Plan: Likely secondary to #1. CT of the head showed possible acute or subacute infarct. MRI of the brain has been ordered (4) Hypertension: Qualifiers: Hypertension type: unspecified Qualified Code(s): I10 - Essential (primary) hypertension Code(s): I10 - Essential (primary) hypertension Status: Acute Assessment and Plan: Resume home medication. (5) Alcohol use: Code(s): Z72.89 - Other problems related to lifestyle Status: Acute Assessment and Plan: CIWA as needed Ativan 2 mg CIWA score for greater than 15 Librium 25 mg CIWA score between 8 and 14 (6) Muscular deconditioning: Code(s): R29.898 - Other symptoms and signs involving the musculoskeletal system Status: Acute Assessment and Plan: PT OT ordered for the patient. (7) Fall: Qualifiers: Encounter type: initial encounter Qualified Code(s): W19.XXXA - Unspecified fall, initial encounter Code(s): W19.XXXA - Unspecified fall, initial encounter Status: Acute Assessment and Plan: PT and OT consulted on the patient. Patient will likely need placement at discharge. Subjective Date/time seen: 07/21/23 12:53 Interval history: Patient is oriented to time and self but believes that she in [place] on a boat. She denies any pain. She is urinating without difficulty. PT and OT ordered on the patient. She will likely placement. MRI ordered. May need neurology consult is. Exam Narrative: GENERAL: Comfortable, no acute distress HENMT: moist mucous membranes EYES: EOM intact b/l NECK: no lymphadenopathy RESPIRATORY: clear to auscultation, no increased respiratory effort CARDIO: Regular rate and rhythm GI: soft, nontender, bowel sounds present SKIN/EXTREMITIES: no rashes, no edema, no redness or tenderness NEURO: PROM intact, A&O x2 Objective Data Vital Signs Vital Signs: Vital Signs - 24 hr 07/20/23 13:16 07/20/23 19:29 07/20/23 20:57 Temperature 97.8 F 97.4 F L Pulse Rate 80 102 H 96 Respiratory Rate 17 18 20 Blood Pressure 134/51 L 124/74 126/62 Pulse Oximetry 97 100 98 Oxygen Delivery Room Air 07/21/23 01:57 07/21/23 04:22 Temperature 97.2 F L Pulse Rate 84 Respiratory Rate 20 Blood Pressure 133/52 L Pulse Oximetry 97 97 Oxygen Delivery Room Air Intake/Output Intake/Output: Intake & Output 07/18/23 07/19/23 07/20/23 07/21/23 23:59 23:59 23:59 23:59 Intake Total 1050 600 Balance 1050 600 Meds/Results Medications: Active Medications Generic Name Dose Route Start Last Admin Trade Name Freq PRN Reason Stop Dose Admin Acetaminophen 650 mg 07/20/23 18:47 Acetaminophen 325 Mg Tablet PO Q4H PRN Mild Pain (1-3) or Fever Hydrocodone Bitart/Acetaminophen 1 tab 07/20/23 18:47 Hydrocodone/Acetaminophen (*Crx) 5-325 Mg Tablet PO Q4H PRN Pain Rated 4-6 Ceftriaxone Sod
[2023-07-21 13:54] VITALS: BP 127/58; PULSE 85; RESP 16; TEMP 36.8; O2SAT 98
[2023-07-21] MEDS: HALOPERIDOL LACTATE 5 MG/ML VIAL IM (14:32)
[2023-07-21 18:40] LABS: Glucose Point of Care 109 mg/dl (65-105)
[2023-07-21 22:00] VITALS: BP 122/49; PULSE 71; RESP 20; TEMP 36.7; O2SAT 95
--- NOTE | 2023-07-22 | ECHO_ITS ---
Patient Info Name: Marily Acevedo Age: 72 years : 1950 Gender: Female Ht: 63 in Wt: 153 lbs BSA: 1.77 m2 HR: 95 bpm BP: 122 / 49 mmHg Heart Rhythm: Sinus Rhythm Technical Quality: Good Exam Date: 07/22/2023 7:22 AM Exam Location: Echo Lab Patient Status: Inpatient Admit Date: 07/20/2023 Staff Ordering Physician: Geneva López PA-C Refuse Driver: Jacinda Ladd RDCS Attending Provider: Sacha Hayden MD Referring Physician: Rene LUNA; Exam Type: CA echo dop bubble study w con Study Info Indications - cva Complete two-dimensional, color flow and Doppler transthoracic echocardiogram is performed. Summary 1. Complete two-dimensional, color flow and Doppler transthoracic echocardiogram is performed. 2. Normal left ventricular size and systolic function. 3. Normal appearing cardiac valves. 4. Normal sinus rhythm. 5. Agitated saline contrast was ordered but refused by the patient. Left Ventricle Left ventricular chamber dimension is normal. Left ventricular systolic function is normal, estimated at 50-55%. The left ventricular diastolic function is grade I diastolic dysfunction. Right Ventricle Right ventricular chamber dimension is normal. Left Atria Left atrial chamber dimension is normal. Right Atria Right atrial chamber dimension is normal. Aortic Valve The aortic valve is trileaflet. There is mild aortic valve sclerosis. Pulmonic Valve The pulmonic valve is normal. Mitral Valve The mitral valve has normal leaflets. Tricuspid Valve The tricuspid valve leaflets are normal. Pericardium/Pleural The pericardium appears normal. Aorta The aortic root size at the sinus of Valsalva is normal. Report Signatures
[2023-07-22 01:06] LABS: Glucose Point of Care 76 mg/dl (65-105)
[2023-07-22 05:50] LABS: Hematocrit 43.4 % (37.0-47.0); Hemoglobin 14.3 g/dL (12.0-15.0); Mean Corpuscular HGB Conc 32.9 g/dl (32-36); Mean Corpuscular Hemoglobin 32.4 pg (26-34); Mean Corpuscular Volume 98.4 fl (80-100); Mean Platelet Volume 10.7 fl (7.4-10.4); Platelet Count Result 261 k/mm3 (150-375); Red Blood Count 4.41 M/mm3 (4.2-5.4); Red Cell Distribution Width 13.2 % (11.5-14.5); White Blood Count 8.8 K/mm3 (4.5-10.0)
[2023-07-22 05:57] LABS: Anion Gap 7 mmol/L (4-12); Blood Urea Nitrogen 5 mg/dL (7-17); Calcium 9.4 mg/dL (8.4-10.2); Carbon Dioxide 25 mmol/L (22-30); Chloride 103 mmol/L (98-107); Cholesterol 127 mg/dL (0-200); Estimated CRCL calculation 69 ml/min; Estimated Glomerular Filt Rate > 60; Glucose 78 mg/dL (65-110); HDL Direct 41 mg/dL; Potassium 3.6 mmol/L (3.4-5.0); Sodium 135 mmol/L (137-145); Triglycerides 128 mg/dL (<150)
[2023-07-22 06:00] VITALS: BP 131/63; PULSE 81; RESP 20; TEMP 36.4; O2SAT 95
[2023-07-22 06:07] LABS: LDL Cholesterol Direct 54 mg/dL
[2023-07-22 06:23] LABS: Hemoglobin A1C 4.8 % (<5.7)
[2023-07-22 06:25] LABS: Glucose Point of Care 82 mg/dl (65-105)
[2023-07-22] MEDS: CLOPIDOGREL BISULFATE 75 MG TABLET PO (08:24)
[2023-07-22] MEDS: ASPIRIN 81 MG ENTERIC TABLET PO (08:24)
--- NOTE | 2023-07-22 11:56 | WPDNEURCNPN ---
Assessment and Plan Assessment and plan (1) CVA (cerebral vascular accident): Code(s): I63.9 - Cerebral infarction, unspecified Status: Acute (2) Acute UTI: Code(s): N39.0 - Urinary tract infection, site not specified Status: Acute (3) Hypertension: Qualifiers: Hypertension type: unspecified Qualified Code(s): I10 - Essential (primary) hypertension Code(s): I10 - Essential (primary) hypertension Status: Acute Plan 1. Cerebral stroke with abnormal MRI, 2. Abnormal Doppler study with 50 to 69% stenosis in left internal carotid artery but less than 50% in the right internal carotid artery 3. Will need a surface echocardiogram to rule out the other source of emboli 4. Continue aspirin 81mg daily and clopidogrel 75mg daily for the next 3 weeks also continue atorvastatin 20mg daily and further recommendations accordingly Consult date: 07/22/23 HPI: Marily Acevedo is a 72 year old female , admitted to the hospital through the emergency room where she presented with history of ground level mechanical fall 2 days ago hitting her head but not losing the consciousness and was able to get back up after the fall on the day of admission to the hospital she reported she had no head trauma no loss of consciousness and she was able to get back after the fall but her head was hurting and she pressed the fall alert button and EMS came to the location brought her to the hospital he had ambulated since the fall and was not complaining of any back pain, her medications included clonazepam 1mg twice a day p.r.n. diclofenac 75mg twice a day p.r.n. fluoxetine 20mg daily ,evothyroxine 75mcg daily trazodone 150mg at night in addition to atorvastatin 20mg daily and clonazepam 1mg b.i.d. p.r.n., she had the history of hypothyroidism, being former smoker is smoking pack years of 54 but no smoking since May of 2020, on initial eval in the emergency room vital signs were normal, CBC was normal BMP was normal UA was abnormal with more than 100 wbc's and positive for nitrate, chest x-ray negative, CT scan of the head negative for the bleed or hydrocephalus except the few small old infarct and loss of pond and white matter differentiation without and cephalomedullary she a considering the possible metabolic encephalopathy with acute UTI and old cerebrovascular accident was admitted to the hospital, and since then has had a Doppler study of the carotid which revealed less than 50% stenosis right internal carotid artery and 50 to 69% stenosis left internal carotid artery. [facility] Past Medical History Medical History Hypothyroidism Surgical History Surgical History H/O vascular surgery H/O: hysterectomy Hx of appendectomy Family History Family History Grandparent Hypertension Cerebrovascular accident Diabetes mellitus Mother Family history of lung cancer Family history of malignant neoplasm Father Patient's father is Social History Social History Smoking packs per day: 1 Smoking cigarettes per day: 20.0 Years smoked: 52 Smoking pack-years: 52.00 Smoking status: Current every day smoker Tobacco type: cigarettes Second hand tobacco smoke exposure: Yes Smoking end date: 05/11/20 Alcohol intake: current Substance use: never Substance use type: does not use Do You Feel Safe in your Home?: Yes Lack of Transportation: No Lack of Food: Never True Current Housing: I Have Housing Concerned About Future Housing: No Difficulty Paying Gas/Electric Bills: No Difficulty Paying for Meds: No Currently Unemployed: No Education: High School Diploma/GED Difficulty w/ Childcare or Family Care: No Spiritual care concerns: No Meds Home Medica
--- NOTE | 2023-07-22 14:02 | PM.IMPN ---
Progress Note: A&P Assessment and Plan (1) Acute UTI: Code(s): N39.0 - Urinary tract infection, site not specified Status: Acute Assessment and Plan: UA with positive nitrate, 3+ LE, 3-5 rbc's and greater than 100 wbc's Patient started on Rocephin. IV fluids continue. Urine culture gram negative bacilli Blood cultures NGTD Adjust antibiotic therapy to culture results. (2) CVA (cerebral vascular accident): Code(s): I63.9 - Cerebral infarction, unspecified Status: Acute Assessment and Plan: CT Head no fracture or acute intracranial hemorrhage. A few small old infarcts as well as the few additional age-indeterminate small regions of loss of pond-white matter differentiation without definitive encephalomalacia which could represent more recent, potentially acute or subacute infarcts. MRI showing acute infarct of the right temporoparietal occipital region Consider consulting Neurology. (3) Metabolic encephalopathy: Code(s): G93.41 - Metabolic encephalopathy Status: Acute Assessment and Plan: Likely secondary to #1. CT of the head showed possible acute or subacute infarct. MRI showing acute infarct (4) Hypertension: Qualifiers: Hypertension type: unspecified Qualified Code(s): I10 - Essential (primary) hypertension Code(s): I10 - Essential (primary) hypertension Status: Acute Assessment and Plan: Resume home medication. (5) Alcohol use: Code(s): Z72.89 - Other problems related to lifestyle Status: Acute Assessment and Plan: CIWA as needed Ativan 2 mg CIWA score for greater than 15 Librium 25 mg CIWA score between 8 and 14 (6) Muscular deconditioning: Code(s): R29.898 - Other symptoms and signs involving the musculoskeletal system Status: Acute Assessment and Plan: PT OT ordered for the patient. (7) Fall: Qualifiers: Encounter type: initial encounter Qualified Code(s): W19.XXXA - Unspecified fall, initial encounter Code(s): W19.XXXA - Unspecified fall, initial encounter Status: Acute Assessment and Plan: PT and OT consulted on the patient. Patient will likely need placement at discharge. Subjective Date/time seen: 07/22/23 14:02 Interval history: Patient refusing IV access right now. Will switch to p.o. antibiotics. Neurology seeing patient. She did have a CVA. Waiting for urine cultures to return. Patient likely needs to be placed. It appears that she would not be able to take care of herself at this time. Exam Narrative: GENERAL: Comfortable, no acute distress HENMT: moist mucous membranes EYES: EOM intact b/l NECK: no lymphadenopathy RESPIRATORY: clear to auscultation, no increased respiratory effort CARDIO: Regular rate and rhythm GI: soft, nontender, bowel sounds present SKIN/EXTREMITIES: no rashes, no edema, no redness or tenderness NEURO: PROM intact, A&O x2 Objective Data Vital Signs Vital Signs: Vital Signs - 24 hr 07/21/23 16:28 07/21/23 20:00 07/21/23 22:00 Temperature 98.0 F Pulse Rate 71 Respiratory Rate 20 Blood Pressure 122/49 L Pulse Oximetry 95 Oxygen Delivery Room Air Room Air 07/22/23 06:00 07/22/23 08:00 Temperature 97.5 F L Pulse Rate 81 Respiratory Rate 20 Blood Pressure 131/63 Pulse Oximetry 95 Oxygen Delivery Room Air Intake/Output Intake/Output: Intake & Output 07/19/23 07/20/23 07/21/23 07/22/23 23:59 23:59 23:59 23:59 Intake Total 1050 950 660 Balance 1050 950 660 Meds/Results Medications: Active Medications Generic Name Dose Route Start Last Admin Trade Name Freq PRN Reason Stop Dose Admin Acetaminophen 650 mg 07/20/23 18:47 Acetaminophen 325 Mg Tablet PO Q4H PRN Mild Pain (1-3) or Fever Hydrocodone Bitart/Acetaminophen 1 tab 07/20/23 18:47 Hydrocodone/Acetaminoph
[2023-07-22 16:19] VITALS: BP 132/76; PULSE 70; RESP 12; TEMP 37.1; O2SAT 100
[2023-07-22 16:44] LABS: Glucose Point of Care 112 mg/dl (65-105)
[2023-07-22 18:59] LABS: Glucose Point of Care 105 mg/dl (65-105)
[2023-07-22 19:48] VITALS: BP 166/73; PULSE 90; RESP 18; TEMP 36.7; O2SAT 98
[2023-07-22 20:00] VITALS: PULSE 88
[2023-07-22] MEDS: CEFDINIR 300 MG CAPSULE PO (20:53)
[2023-07-22] MEDS: ATORVASTATIN 20 MG TABLET PO (20:53)
[2023-07-22] MEDS: clonazePAM (*CRX) 0.5 MG TABLET 1 MG PO (23:01)
[2023-07-23] VITALS: PULSE 100
[2023-07-23 00:57] LABS: Glucose Point of Care 96 mg/dl (65-105)
[2023-07-23 04:00] VITALS: PULSE 88
[2023-07-23 05:06] LABS: Hemoglobin 15.3 g/dL (12.0-15.0); Mean Corpuscular HGB Conc 33.3 g/dl (32-36); Mean Corpuscular Hemoglobin 32.2 pg (26-34); Mean Corpuscular Volume 96.8 fl (80-100); Mean Platelet Volume 10.3 fl (7.4-10.4); Platelet Count Result 276 k/mm3 (150-375); Red Blood Count 4.75 M/mm3 (4.2-5.4); Red Cell Distribution Width 12.9 % (11.5-14.5); White Blood Count 9.9 K/mm3 (4.5-10.0)
[2023-07-23 05:16] LABS: Alanine Aminotransferase 46 U/L (6-35); Albumin Level 4.2 g/dL (3.5-5.1); Alkaline Phosphatase 91 U/L (38-126); Anion Gap 10 mmol/L (4-12); Aspartate Amino Transferase 44 U/L (14-36); Bilirubin,Total 0.9 mg/dL (0.2-1.3); Blood Urea Nitrogen 4 mg/dL (7-17); Calcium 9.9 mg/dL (8.4-10.2); Carbon Dioxide 23 mmol/L (22-30); Chloride 103 mmol/L (98-107); Estimated CRCL calculation 69 ml/min; Estimated Glomerular Filt Rate > 60; Glucose 97 mg/dL (65-110); Potassium 3.4 mmol/L (3.4-5.0); Sodium 136 mmol/L (137-145)
[2023-07-23 05:36] VITALS: BP 146/75; PULSE 92; RESP 18; TEMP 36.6; O2SAT 96
[2023-07-23 06:01] LABS: Glucose Point of Care 106 mg/dl (65-105)
[2023-07-23] MEDS: CLOPIDOGREL BISULFATE 75 MG TABLET PO (10:28)
[2023-07-23] MEDS: CEFDINIR 300 MG CAPSULE PO ×2 (10:28→22:10)
[2023-07-23] MEDS: ASPIRIN 81 MG ENTERIC TABLET PO (10:28)
[2023-07-23 12:08] LABS: Glucose Point of Care 102 mg/dl (65-105)
--- NOTE | 2023-07-23 12:49 | WPDNEUROPN ---
Subjective Date/time seen: 07/23/23 12:49 Interval history: acute stroke with abnormal MRI, abnormal Doppler study, awaiting the surface echocardiogram, receiving atorvastatin 20mg at night, aspirin 81mg daily, Plavix 75mg daily for the next 3 weeks, and on examination today awake alert cooperative, full speech, good affect with no signs of depression, and left-sided neuro deficits interested in going home will benefit from the rehab. Objective Data Vital Signs Vital Signs: Vital Signs - 24 hr 07/22/23 16:19 07/22/23 19:48 07/22/23 20:00 Temperature 37.1 C 36.7 C Pulse Rate 70 90 Pulse Rate [Right Radial Palpation] 88 Respiratory Rate 12 18 Blood Pressure 132/76 166/73 H Pulse Oximetry 100 98 Oxygen Delivery 07/22/23 20:00 07/23/23 00:00 07/23/23 04:00 Temperature Pulse Rate Pulse Rate [Right Radial Palpation] 100 88 Respiratory Rate Blood Pressure Pulse Oximetry Oxygen Delivery Room Air 07/23/23 05:36 07/23/23 08:08 Temperature 36.6 C Pulse Rate 92 Pulse Rate [Right Radial Palpation] Respiratory Rate 18 Blood Pressure 146/75 H Pulse Oximetry 96 Oxygen Delivery Room Air Intake/Output Intake/Output: Intake & Output 07/20/23 07/21/23 07/22/23 07/23/23 23:59 23:59 23:59 23:59 Intake Total 1050 950 860 100 Output Total 2 Balance 1050 950 858 100 Meds/Results Medications: Active Medications Generic Name Dose Route Start Last Admin Trade Name Freq PRN Reason Stop Dose Admin Acetaminophen 650 mg 07/20/23 18:47 Acetaminophen 325 Mg Tablet PO Q4H PRN Mild Pain (1-3) or Fever Hydrocodone Bitart/Acetaminophen 1 tab 07/20/23 18:47 Hydrocodone/Acetaminophen (*Crx) 5-325 Mg Tablet PO Q4H PRN Pain Rated 4-6 Aspirin 81 mg 07/22/23 09:00 07/23/23 10:28 Aspirin 81 Mg Enteric Tablet PO 81 mg QAM DIONNE Administration Atorvastatin Calcium 20 mg 07/22/23 21:00 07/22/23 20:53 Atorvastatin 20 Mg Tablet PO 20 mg HS DIONNE Administration Cefdinir 300 mg 07/22/23 21:00 07/23/23 10:28 Cefdinir 300 Mg Capsule PO 05/18/24 09:01 300 mg Q12HR DIONNE Administration Chlordiazepoxide HCl 25 mg 07/21/23 13:12 Chlordiazepoxide (*Crx) 25 Mg Capsule PO Q6H PRN Withdrawal Clopidogrel Bisulfate 75 mg 07/22/23 09:00 07/23/23 10:28 Clopidogrel Bisulfate 75 Mg Tablet PO 75 mg QAM DIONNE Administration Lorazepam 2 mg 07/21/23 13:12 Lorazepam Inj (*Crx) 2 Mg/Ml Vial IV PUSH Q2H PRN CIWA > 15 Ondansetron HCl 4 mg 07/20/23 18:47 Ondansetron Inj 4 Mg/2 Ml Vial IV PUSH Q4H PRN Nausea Perflutren Lipid Microsphere 0 ml 07/21/23 16:09 Perflutren Lipid Microspheres 1.5 Ml Vial Diluted To 10 Ml Total Volume IV PUSH 07/24/23 16:10 ONCE PRN adequate visualization Protocol Radiology Results: ITS Impressions Chest X-Ray 07/20/23 15:26 IMPRESSION: 1. No acute cardiopulmonary disease. Head CT 07/20/23 15:37 IMPRESSION: 1. No fracture or acute intracranial hemorrhage. 2. A few small old infarcts as well as the few additional age-indeterminate small regions of loss of pond-white matter differentiation without definitive encephalomalacia which could represent more recent, potentially acute or subacute infarcts. 3. Age-related changes including mild to moderate diffuse volume loss and mild scattered white matter hypoattenuation consistent with chronic small vessel ischemic disease. Brain MRI 07/21/23 15:31 IMPRESSION: 1. Acute infarct in the right temporoparietooccipital region. 2. A couple additional unchanged small old lacunar infarcts in the right frontal lobe white matter and right basal ganglia and mild ventricular predominant specific white matter T2 hyperintensity consistent with chronic small vessel ischemic disease. Carotid Doppler Study 07/21/23 18:07 IMPRESSION: 1. <50% stenosis in the right internal carotid artery. 2. 50-69% sten
--- NOTE | 2023-07-23 13:45 | PM.IMPN ---
Progress Note: A&P Assessment and Plan (1) Acute UTI: Code(s): N39.0 - Urinary tract infection, site not specified Status: Acute Assessment and Plan: UA with positive nitrate, 3+ LE, 3-5 rbc's and greater than 100 wbc's Rocephin discontinued on 07/21 due to patient refusing IV access. Cefdinir started on 07/21. IV fluids discontinued Urine culture klebsiella pneumoniae pansensitive. Blood cultures NGTD (2) CVA (cerebral vascular accident): Code(s): I63.9 - Cerebral infarction, unspecified Status: Acute Assessment and Plan: CT Head no fracture or acute intracranial hemorrhage. A few small old infarcts as well as the few additional age-indeterminate small regions of loss of pond-white matter differentiation without definitive encephalomalacia which could represent more recent, potentially acute or subacute infarcts. MRI showing acute infarct of the right temporoparietal occipital region Consider consulting Neurology. Patient started on Plavix and Aspirin LDL 54, continue atorvastatin 20 mg (3) Metabolic encephalopathy: Code(s): G93.41 - Metabolic encephalopathy Status: Acute Assessment and Plan: Likely secondary to #1. CT of the head showed possible acute or subacute infarct. MRI showing acute infarct (4) Hypertension: Qualifiers: Hypertension type: unspecified Qualified Code(s): I10 - Essential (primary) hypertension Code(s): I10 - Essential (primary) hypertension Status: Acute Assessment and Plan: Resume home medication. (5) Alcohol use: Code(s): Z72.89 - Other problems related to lifestyle Status: Acute Assessment and Plan: CIWA as needed Ativan 2 mg CIWA score for greater than 15 Librium 25 mg CIWA score between 8 and 14 (6) Muscular deconditioning: Code(s): R29.898 - Other symptoms and signs involving the musculoskeletal system Status: Acute Assessment and Plan: PT OT ordered for the patient. (7) Fall: Qualifiers: Encounter type: initial encounter Qualified Code(s): W19.XXXA - Unspecified fall, initial encounter Code(s): W19.XXXA - Unspecified fall, initial encounter Status: Acute Assessment and Plan: PT and OT consulted on the patient. Patient will likely need placement at discharge. Subjective Date/time seen: 07/23/23 13:45 Interval history: Patient doing well today. Waiting for discharge plans per family. Exam Narrative: GENERAL: Comfortable, no acute distress HENMT: moist mucous membranes EYES: EOM intact b/l NECK: no lymphadenopathy RESPIRATORY: clear to auscultation, no increased respiratory effort CARDIO: Regular rate and rhythm GI: soft, nontender, bowel sounds present SKIN/EXTREMITIES: no rashes, no edema, no redness or tenderness NEURO: PROM intact, A&O x2 Objective Data Vital Signs Vital Signs: Vital Signs - 24 hr 07/22/23 16:19 07/22/23 19:48 07/22/23 20:00 Temperature 98.8 F 98.1 F Pulse Rate 70 90 Pulse Rate [Right Radial Palpation] 88 Respiratory Rate 12 18 Blood Pressure 132/76 166/73 H Pulse Oximetry 100 98 Oxygen Delivery 07/22/23 20:00 07/23/23 00:00 07/23/23 04:00 Temperature Pulse Rate Pulse Rate [Right Radial Palpation] 100 88 Respiratory Rate Blood Pressure Pulse Oximetry Oxygen Delivery Room Air 07/23/23 05:36 07/23/23 08:08 Temperature 97.9 F Pulse Rate 92 Pulse Rate [Right Radial Palpation] Respiratory Rate 18 Blood Pressure 146/75 H Pulse Oximetry 96 Oxygen Delivery Room Air Intake/Output Intake/Output: Intake & Output 07/20/23 07/21/23 07/22/23 07/23/23 23:59 23:59 23:59 23:59 Intake Total 1050 950 860 100 Output Total 2 Balance 1050 950 858 100 Meds/Results Medications: Active Medications Generic Name Dose Route Start Last Admin Trade
--- NOTE | 2023-07-23 14:04 | PC.NURSE ---
patient becoming agitated, family members in room with patient at this time. Patient making accusations of jewelry being stolen. The patient was found with one ring on left fourth (ring) finger and her life alert necklace when screened for MRI on monday07/21/23. This is the only jewelry present in patient's room at time of accusations as well. RN, Giovana Youngblood, checked closet; fruit and vegetable packer, Jocy Cortez, checked safe; RN KM asked patient if she had checked her purse to see if she had put rings in it, pt became irritated with questioning. Reassured patient that she has only had the one ring on since being admitted to the hospital, per assessment.
[2023-07-23 15:57] VITALS: BP 131/63; PULSE 80; RESP 14; TEMP 36.5; O2SAT 98
[2023-07-23] MEDS: clonazePAM (*CRX) 0.5 MG TABLET 1 MG PO ×2 (17:36→22:10)
[2023-07-23 18:38] LABS: Glucose Point of Care 100 mg/dl (65-105)
[2023-07-23 22:00] VITALS: BP 135/60; PULSE 86; RESP 18; TEMP 36.3; O2SAT 98
[2023-07-23] MEDS: HYDROcodone/acetaminophen (*CRX) 5-325 MG TABLET 1 TAB PO (22:09)
[2023-07-23] MEDS: ATORVASTATIN 20 MG TABLET PO (22:10)
[2023-07-23] MEDS: traZODone HCL 50 MG TABLET 150 MG PO (22:10)
[2023-07-24 04:51] VITALS: BP 105/75; PULSE 78; RESP 18; TEMP 36.4; O2SAT 98
[2023-07-24] MEDS: LEVOTHYROXINE SODIUM 75 MCG TABLET PO (06:54)
[2023-07-24 07:14] LABS: Hemoglobin 15.3 g/dL (12.0-15.0); Mean Corpuscular HGB Conc 31.2 g/dl (32-36); Mean Corpuscular Hemoglobin 31.5 pg (26-34); Mean Platelet Volume 10.3 fl (7.4-10.4); Platelet Count Result 207 k/mm3 (150-375); Red Blood Count 4.85 M/mm3 (4.2-5.4); Red Cell Distribution Width 12.9 % (11.5-14.5); White Blood Count 6.7 K/mm3 (4.5-10.0)
[2023-07-24 08:00] VITALS: BMI 27.5
[2023-07-24] MEDS: CEFDINIR 300 MG CAPSULE PO ×2 (08:35→20:15)
[2023-07-24] MEDS: PANTOPRAZOLE 40 MG TABLET PO ×2 (08:35→20:15)
[2023-07-24] MEDS: ASPIRIN 81 MG ENTERIC TABLET PO (08:35)
[2023-07-24] MEDS: CLOPIDOGREL BISULFATE 75 MG TABLET PO (08:35)
[2023-07-24] MEDS: FLUoxetine HCL 20 MG CAPSULE PO (08:35)
[2023-07-24 08:48] LABS: Anion Gap 8 mmol/L (4-12); Blood Urea Nitrogen 3 mg/dL (7-17); Calcium 9.3 mg/dL (8.4-10.2); Carbon Dioxide 25 mmol/L (22-30); Chloride 100 mmol/L (98-107); Estimated CRCL calculation 69 ml/min; Estimated Glomerular Filt Rate > 60; Glucose 95 mg/dL (65-110); Potassium 3.6 mmol/L (3.4-5.0); Sodium 133 mmol/L (137-145)
--- NOTE | 2023-07-24 12:59 | PM.IMPN ---
Progress Note: A&P Assessment and Plan (1) Acute UTI: Code(s): N39.0 - Urinary tract infection, site not specified Status: Acute Assessment and Plan: UA with positive nitrate, 3+ LE, 3-5 rbc's and greater than 100 wbc's Rocephin discontinued on 07/21 due to patient refusing IV access. Cefdinir started on 07/21. IV fluids discontinued Urine culture klebsiella pneumoniae pansensitive. Blood cultures NGTD (2) CVA (cerebral vascular accident): Code(s): I63.9 - Cerebral infarction, unspecified Status: Acute Assessment and Plan: CT Head no fracture or acute intracranial hemorrhage. A few small old infarcts as well as the few additional age-indeterminate small regions of loss of pond-white matter differentiation without definitive encephalomalacia which could represent more recent, potentially acute or subacute infarcts. MRI showing acute infarct of the right temporoparietal occipital region Consider consulting Neurology. Patient started on Plavix and Aspirin LDL 54, continue atorvastatin 20 mg (3) Metabolic encephalopathy: Code(s): G93.41 - Metabolic encephalopathy Status: Acute Assessment and Plan: Likely secondary to #1. CT of the head showed possible acute or subacute infarct. MRI showing acute infarct (4) Hypertension: Qualifiers: Hypertension type: unspecified Qualified Code(s): I10 - Essential (primary) hypertension Code(s): I10 - Essential (primary) hypertension Status: Acute Assessment and Plan: Resume home medication. (5) Alcohol use: Code(s): Z72.89 - Other problems related to lifestyle Status: Acute Assessment and Plan: CIWA as needed Ativan 2 mg CIWA score for greater than 15 Librium 25 mg CIWA score between 8 and 14 (6) Muscular deconditioning: Code(s): R29.898 - Other symptoms and signs involving the musculoskeletal system Status: Acute Assessment and Plan: PT OT ordered for the patient. (7) Fall: Qualifiers: Encounter type: initial encounter Qualified Code(s): W19.XXXA - Unspecified fall, initial encounter Code(s): W19.XXXA - Unspecified fall, initial encounter Status: Acute Assessment and Plan: PT and OT consulted on the patient. Patient will likely need placement at discharge. Subjective Date/time seen: 07/24/23 12:59 Interval history: patient doing well. waiting for insurance authorization for discharge. Exam Narrative: GENERAL: Comfortable, no acute distress HENMT: moist mucous membranes EYES: EOM intact b/l NECK: no lymphadenopathy RESPIRATORY: clear to auscultation, no increased respiratory effort CARDIO: Regular rate and rhythm GI: soft, nontender, bowel sounds present SKIN/EXTREMITIES: no rashes, no edema, no redness or tenderness NEURO: PROM intact, A&O x2 Objective Data Vital Signs Vital Signs: Vital Signs - 24 hr 07/23/23 15:57 07/23/23 22:00 07/23/23 22:00 Temperature 97.7 F 97.3 F L Pulse Rate 80 86 Respiratory Rate 14 18 Blood Pressure 131/63 135/60 Pulse Oximetry 98 98 Oxygen Delivery Room Air 07/24/23 04:51 07/24/23 08:35 Temperature 97.6 F Pulse Rate 78 Respiratory Rate 18 Blood Pressure 105/75 Pulse Oximetry 98 Oxygen Delivery Room Air Intake/Output Intake/Output: Intake & Output 07/21/23 07/22/23 07/23/23 07/24/23 23:59 23:59 23:59 23:59 Intake Total 950 860 440 390 Output Total 2 Balance 950 858 440 390 Meds/Results Medications: Active Medications Generic Name Dose Route Start Last Admin Trade Name Freq PRN Reason Stop Dose Admin Acetaminophen 650 mg 07/20/23 18:47 Acetaminophen 325 Mg Tablet PO Q4H PRN Mild Pain (1-3) or Fever Hydrocodone Bitart/Acetaminophen 1 tab 07/20/23 18:47 07/23/23 22:09 Hydrocodone/Acetaminophen (*Crx) 5-325 Mg Tablet PO
[2023-07-24 14:00] VITALS: BP 111/79; PULSE 97; RESP 14; TEMP 36.6; O2SAT 98
[2023-07-24] MEDS: ACETAMINOPHEN 325 MG TABLET 650 MG PO (17:33)
[2023-07-24 19:50] VITALS: PULSE 97; RESP 14; O2SAT 98
[2023-07-24] MEDS: traZODone HCL 50 MG TABLET 150 MG PO (20:15)
[2023-07-24] MEDS: ATORVASTATIN 20 MG TABLET PO (20:15)
[2023-07-24 21:57] VITALS: BP 113/61; PULSE 77; RESP 17; TEMP 36.2; O2SAT 97
[2023-07-25] MEDS: HYDROcodone/acetaminophen (*CRX) 5-325 MG TABLET 1 TAB PO ×3 (04:25→16:58)
[2023-07-25] MEDS: LEVOTHYROXINE SODIUM 75 MCG TABLET PO (04:25)
[2023-07-25 05:40] VITALS: BP 143/57; PULSE 77; RESP 16; TEMP 36.3; O2SAT 96
[2023-07-25 08:00] VITALS: BMI 29.1
[2023-07-25] MEDS: PANTOPRAZOLE 40 MG TABLET PO ×2 (09:13→20:20)
[2023-07-25] MEDS: ASPIRIN 81 MG ENTERIC TABLET PO (09:13)
[2023-07-25] MEDS: FLUoxetine HCL 20 MG CAPSULE PO (09:14)
[2023-07-25] MEDS: clonazePAM (*CRX) 0.5 MG TABLET 1 MG PO (09:15)
[2023-07-25] MEDS: CEFDINIR 300 MG CAPSULE PO ×2 (09:15→20:20)
[2023-07-25] MEDS: CLOPIDOGREL BISULFATE 75 MG TABLET PO (09:15)
--- NOTE | 2023-07-25 11:50 | WPDNEUROPN ---
Subjective Date/time seen: 07/25/23 11:50 Interval history: Is status post right temporoparietal occipital stroke in addition to the lacunar infarct in the right frontal lobe and right basal ganglia, Doppler study with 50 to 69% stenosis in the left internal carotid artery and less than 50% in the right internal carotid artery, echocardiogram normal though the agitated saline contrast was ordered but refused by the patient, patient is receiving aspirin 81mg daily, clopidogrel 75mg daily, atorvastatin 20mg at night, at present also patient has UTI for which she is being treated. As far as the neurological status is concerned she needs to be followed by the physician cause of the underlying left-sided stenosis though at present she is not ready for the intervention. Objective Data Vital Signs Vital Signs: Vital Signs - 24 hr 07/24/23 14:00 07/24/23 19:50 07/24/23 21:57 Temperature 36.6 C 36.2 C L Pulse Rate 97 97 77 Respiratory Rate 14 14 17 Blood Pressure 111/79 113/61 Pulse Oximetry 98 98 97 Oxygen Delivery Room Air 07/25/23 05:40 07/25/23 09:15 Temperature 36.3 C L Pulse Rate 77 Respiratory Rate 16 Blood Pressure 143/57 H Pulse Oximetry 96 Oxygen Delivery Room Air Intake/Output Intake/Output: Intake & Output 07/22/23 07/23/23 07/24/23 07/25/23 23:59 23:59 23:59 23:59 Intake Total 847 663 9380 240 Output Total 2 1 Balance 246 022 6078 239 Meds/Results Medications: Active Medications Generic Name Dose Route Start Last Admin Trade Name Freq PRN Reason Stop Dose Admin Acetaminophen 650 mg 07/20/23 18:47 07/24/23 17:33 Acetaminophen 325 Mg Tablet PO 650 mg Q4H PRN Administration Mild Pain (1-3) or Fever Hydrocodone Bitart/Acetaminophen 1 tab 07/20/23 18:47 07/25/23 11:33 Hydrocodone/Acetaminophen (*Crx) 5-325 Mg Tablet PO 1 tab Q4H PRN Administration Pain Rated 4-6 Hydrocodone Bitart/Acetaminophen 1 tab 07/23/23 14:20 Hydrocodone/Acetaminophen (*Crx) 5-325 Mg Tablet PO Q6H PRN pain Aspirin 81 mg 07/22/23 09:00 05/14/24 09:13 Aspirin 81 Mg Enteric Tablet PO 81 mg QAM DIONNE Administration Atorvastatin Calcium 20 mg 07/23/23 21:00 07/24/23 20:15 Atorvastatin 20 Mg Tablet PO 20 mg HS DIONNE Administration Cefdinir 300 mg 07/22/23 21:00 07/25/23 09:15 Cefdinir 300 Mg Capsule PO 07/29/23 09:01 300 mg Q12HR DIONNE Administration Chlordiazepoxide HCl 25 mg 07/21/23 13:12 Chlordiazepoxide (*Crx) 25 Mg Capsule PO Q6H PRN Withdrawal Clonazepam 1 mg 07/23/23 14:20 07/25/23 09:15 Clonazepam (*Crx) 0.5 Mg Tablet PO 1 mg BID PRN Administration Anxiety Clopidogrel Bisulfate 75 mg 07/22/23 09:00 07/25/23 09:15 Clopidogrel Bisulfate 75 Mg Tablet PO 75 mg QAM DIONNE Administration Fluoxetine HCl 20 mg 07/24/23 09:00 07/25/23 09:14 Fluoxetine Hcl 20 Mg Capsule PO 20 mg DAILY DIONNE Administration Levothyroxine Sodium 75 mcg 07/24/23 06:30 07/25/23 04:25 Levothyroxine Sodium 75 Mcg Tablet PO 75 mcg DAILY@0630 DIONNE Administration Lorazepam 2 mg 07/21/23 13:12 Lorazepam Inj (*Crx) 2 Mg/Ml Vial IV PUSH Q2H PRN CIWA > 15 Ondansetron HCl 4 mg 07/20/23 18:47 Ondansetron Inj 4 Mg/2 Ml Vial IV PUSH Q4H PRN Nausea Pantoprazole Sodium 40 mg 07/24/23 09:00 07/25/23 09:13 Pantoprazole 40 Mg Tablet PO 40 mg Q12HR DIONNE Administration Trazodone HCl 150 mg 07/23/23 21:00 07/24/23 20:15 Trazodone Hcl 50 Mg Tablet PO 150 mg HS DIONNE Administration Radiology Results: ITS Impressions Chest X-Ray 07/20/23 15:26 IMPRESSION: 1. No acute cardiopulmonary disease. Head CT 07/20/23 15:37 IMPRESSION: 1. No fracture or acute intracranial hemorrhage. 2. A few small old infarcts as well as the few additional age-indeterminate small regions of loss of pond-white matter differentiation without definitive encephalomalacia which cou
[2023-07-25 14:00] VITALS: BP 129/56; PULSE 76; RESP 14; TEMP 36.8; O2SAT 100
--- NOTE | 2023-07-25 14:47 | PM.IMPN ---
Progress Note: A&P Assessment and Plan (1) Acute UTI: Code(s): N39.0 - Urinary tract infection, site not specified Status: Acute Assessment and Plan: UA with positive nitrate, 3+ LE, 3-5 rbc's and greater than 100 wbc's Rocephin discontinued on 07/21 due to patient refusing IV access. Cefdinir started on 07/21. IV fluids discontinued Urine culture klebsiella pneumoniae pansensitive. Blood cultures NGTD (2) CVA (cerebral vascular accident): Code(s): I63.9 - Cerebral infarction, unspecified Status: Acute Assessment and Plan: CT Head no fracture or acute intracranial hemorrhage. A few small old infarcts as well as the few additional age-indeterminate small regions of loss of pond-white matter differentiation without definitive encephalomalacia which could represent more recent, potentially acute or subacute infarcts. MRI showing acute infarct of the right temporoparietal occipital region Consider consulting Neurology. Patient started on Plavix and Aspirin LDL 54, continue atorvastatin 20 mg (3) Metabolic encephalopathy: Code(s): G93.41 - Metabolic encephalopathy Status: Acute Assessment and Plan: Likely secondary to #1. CT of the head showed possible acute or subacute infarct. MRI showing acute infarct (4) Hypertension: Qualifiers: Hypertension type: unspecified Qualified Code(s): I10 - Essential (primary) hypertension Code(s): I10 - Essential (primary) hypertension Status: Acute Assessment and Plan: Resume home medication. (5) Alcohol use: Code(s): Z72.89 - Other problems related to lifestyle Status: Acute Assessment and Plan: CIWA as needed Ativan 2 mg CIWA score for greater than 15 Librium 25 mg CIWA score between 8 and 14 (6) Muscular deconditioning: Code(s): R29.898 - Other symptoms and signs involving the musculoskeletal system Status: Acute Assessment and Plan: PT OT ordered for the patient. (7) Fall: Qualifiers: Encounter type: initial encounter Qualified Code(s): W19.XXXA - Unspecified fall, initial encounter Code(s): W19.XXXA - Unspecified fall, initial encounter Status: Acute Assessment and Plan: PT and OT consulted on the patient. Patient will likely need placement at discharge. Subjective Date/time seen: 07/25/23 14:47 Interval history: it is unsafe for patient to return home by herself. Patient's medical decision maker is her brother. it has been decided the patient will go to SNF. Waiting for insurance authorization for this. Exam Narrative: GENERAL: Comfortable, no acute distress HENMT: moist mucous membranes EYES: EOM intact b/l NECK: no lymphadenopathy RESPIRATORY: clear to auscultation, no increased respiratory effort CARDIO: Regular rate and rhythm GI: soft, nontender, bowel sounds present SKIN/EXTREMITIES: no rashes, no edema, no redness or tenderness NEURO: PROM intact, A&O x2 Objective Data Vital Signs Vital Signs: Vital Signs - 24 hr 07/24/23 19:50 07/24/23 21:57 07/25/23 05:40 Temperature 97.2 F L 97.4 F L Pulse Rate 97 77 77 Respiratory Rate 14 17 16 Blood Pressure 113/61 143/57 H Pulse Oximetry 98 97 96 Oxygen Delivery Room Air 07/25/23 09:15 Temperature Pulse Rate Respiratory Rate Blood Pressure Pulse Oximetry Oxygen Delivery Room Air Intake/Output Intake/Output: Intake & Output 07/22/23 07/23/23 07/24/23 07/25/23 23:59 23:59 23:59 23:59 Intake Total 212 065 1180 1410 Output Total 2 1 Balance 888 242 5460 1409 Meds/Results Medications: Active Medications Generic Name Dose Route Start Last Admin Trade Name Freq PRN Reason Stop Dose Admin Acetaminophen 650 mg 07/20/23 18:47 07/24/23 17:33 Acetaminophen 325 Mg Tablet PO 650 mg Q4H PRN Administration Mild Pain (1-3) or
[2023-07-25 19:30] VITALS: PULSE 76; RESP 14; O2SAT 100
[2023-07-25] MEDS: traZODone HCL 50 MG TABLET 150 MG PO (20:20)
[2023-07-25] MEDS: ATORVASTATIN 20 MG TABLET PO (20:20)
[2023-07-25 20:21] VITALS: BP 117/64; PULSE 72; RESP 16; TEMP 36.6; O2SAT 96
[2023-07-25] MEDS: ACETAMINOPHEN 325 MG TABLET 650 MG PO (20:23)
[2023-07-26] MEDS: LEVOTHYROXINE SODIUM 75 MCG TABLET PO (04:44)
[2023-07-26 05:03] LABS: Hematocrit 43.3 % (37.0-47.0); Hemoglobin 14.1 g/dL (12.0-15.0); Mean Corpuscular HGB Conc 32.6 g/dl (32-36); Mean Corpuscular Volume 98.4 fl (80-100); Mean Platelet Volume 10.4 fl (7.4-10.4); Platelet Count Result 203 k/mm3 (150-375); White Blood Count 5.1 K/mm3 (4.5-10.0)
[2023-07-26 05:18] LABS: Anion Gap 8 mmol/L (4-12); Blood Urea Nitrogen 8 mg/dL (7-17); Calcium 8.9 mg/dL (8.4-10.2); Carbon Dioxide 25 mmol/L (22-30); Chloride 102 mmol/L (98-107); Estimated CRCL calculation 62 ml/min; Estimated Glomerular Filt Rate > 60; Glucose 93 mg/dL (65-110); Potassium 3.8 mmol/L (3.4-5.0); Sodium 135 mmol/L (137-145)
[2023-07-26 06:00] VITALS: BP 125/59; PULSE 74; RESP 16; TEMP 36.6; O2SAT 94
[2023-07-26] MEDS: ACETAMINOPHEN 325 MG TABLET 650 MG PO ×2 (06:09→19:55)
--- NOTE | 2023-07-26 07:00 | PM.IMPN ---
Progress Note: A&P Assessment and Plan (1) Acute UTI: Code(s): N39.0 - Urinary tract infection, site not specified Status: Acute Assessment and Plan: - UA:positive nitrate, 3+ LE, 3-5 rbc's and greater than 100 wbc's - UC obtained on 07/19: klebsiella pneumoniae pansensitive - no previous micro to be reviewed - previously on rocephin, discontinued on 07/21 due to patient refusing IV acess. Cefdinir started on 07/21 - Blood cultures no growth on final result (2) CVA (cerebral vascular accident): Code(s): I63.9 - Cerebral infarction, unspecified Status: Acute Assessment and Plan: No focal deficits at this time. CT Head no fracture or acute intracranial hemorrhage. A few small old infarcts as well as the few additional age-indeterminate small regions of loss of pond-white matter differentiation without definitive encephalomalacia which could represent more recent, potentially acute or subacute infarcts. MRI showing acute infarct of the right temporoparietal occipital region Carotid doppler showing < 50 % stenosis in the R ICA and 50-69% stenosis in L ICA. Will need to be followed outpatient for L ICA stenosis though at present there is no need for intervention. Echo 07/21: LVEF 50-55% and grade I diastolic dysfunction. Agitated saline contrast refused by patient. Plavix 75 mg daily Aspirin 81 mg daily LDL 54, Atorvastatin 20 mg at night (3) Metabolic encephalopathy: Code(s): G93.41 - Metabolic encephalopathy Status: Acute Assessment and Plan: Likely secondary to #1. CT of the head showed possible acute or subacute infarct. MRI showing acute infarct (4) Hypertension: Qualifiers: Hypertension type: unspecified Qualified Code(s): I10 - Essential (primary) hypertension Code(s): I10 - Essential (primary) hypertension Status: Acute Assessment and Plan: Resume home medication. (5) Alcohol use: Code(s): Z72.89 - Other problems related to lifestyle Status: Acute Assessment and Plan: CIWA as needed Ativan 2 mg CIWA score for greater than 15 Librium 25 mg CIWA score between 8 and 14 (6) Muscular deconditioning: Code(s): R29.898 - Other symptoms and signs involving the musculoskeletal system Status: Acute Assessment and Plan: PT OT ordered for the patient. (7) Fall: Qualifiers: Encounter type: initial encounter Qualified Code(s): W19.XXXA - Unspecified fall, initial encounter Code(s): W19.XXXA - Unspecified fall, initial encounter Status: Acute Assessment and Plan: PT and OT consulted on the patient. Will need placement at discharge Per CC patient denied by [facility]. Acceptance pending at [facility]. Patient will need SNF auth prior to discharge. (8) Hypothyroidism: Code(s): E03.9 - Hypothyroidism, unspecified Status: Acute Assessment and Plan: Continue levothyroxine 75 mcg daily. TSH ordered Time Spent With Patient Time with patient: 25 - 35 minutes Subjective Date/time seen: 07/26/23 07:00 Interval history: Patient is pleasant lying in bed. She states that she is depressed and upset with her family for taking her kitten away. She has no complaints at this time. She notes that she does not think she had a stroke and wishes to return home. Discussed with patient the imaging results and the plan to go to SNF. She states understanding. She remains in the hospital pending acceptance and insurance authorization for SNF placement. She denies weakness, headaches, vision changes, chest pain, shortness of breath, and changes in bowel/bladder. Review of Systems Review of Systems: All systems reviewed & are unremarkable except as noted in HPI and below Exam Narrative: AF HR 77 RR 18 SpO2 98 BP 110/53 General: well nourishe
[2023-07-26 08:00] VITALS: BMI 27.6
[2023-07-26] MEDS: CEFDINIR 300 MG CAPSULE PO ×2 (09:53→19:56)
[2023-07-26] MEDS: ASPIRIN 81 MG ENTERIC TABLET PO (09:53)
[2023-07-26] MEDS: CLOPIDOGREL BISULFATE 75 MG TABLET PO (09:53)
[2023-07-26] MEDS: FLUoxetine HCL 20 MG CAPSULE PO (09:53)
[2023-07-26] MEDS: PANTOPRAZOLE 40 MG TABLET PO ×2 (09:54→19:56)
[2023-07-26 13:42] VITALS: BP 110/53; PULSE 77; RESP 18; TEMP 36.4; O2SAT 98
[2023-07-26 19:42] VITALS: BP 115/54; PULSE 79; RESP 16; TEMP 36.1; O2SAT 97
[2023-07-26] MEDS: traZODone HCL 50 MG TABLET 150 MG PO (19:55)
[2023-07-26] MEDS: ATORVASTATIN 20 MG TABLET PO (19:56)
[2023-07-26 20:00] VITALS: PULSE 79; RESP 16; O2SAT 97
[2023-07-26] MEDS: HYDROcodone/acetaminophen (*CRX) 5-325 MG TABLET 1 TAB PO (21:15)
[2023-07-27] MEDS: LEVOTHYROXINE SODIUM 75 MCG TABLET PO (05:10)
[2023-07-27] MEDS: ACETAMINOPHEN 325 MG TABLET 650 MG PO ×3 (05:52→17:52)
[2023-07-27 06:00] VITALS: BP 106/56; PULSE 55; RESP 18; TEMP 36.4; O2SAT 100
--- NOTE | 2023-07-27 06:45 | PM.IMPN ---
Progress Note: A&P Assessment and Plan (1) Acute UTI: Code(s): N39.0 - Urinary tract infection, site not specified Status: Acute Assessment and Plan: - UA:positive nitrate, 3+ LE, 3-5 rbc's and greater than 100 wbc's - UC obtained on 07/19: klebsiella pneumoniae pansensitive - no previous micro to be reviewed - previously on rocephin, discontinued on 07/21 due to patient refusing IV acess. Cefdinir started on 07/21 - Blood cultures no growth on final result (2) CVA (cerebral vascular accident): Code(s): I63.9 - Cerebral infarction, unspecified Status: Acute Assessment and Plan: No focal deficits at this time. CT Head no fracture or acute intracranial hemorrhage. A few small old infarcts as well as the few additional age-indeterminate small regions of loss of pond-white matter differentiation without definitive encephalomalacia which could represent more recent, potentially acute or subacute infarcts. MRI showing acute infarct of the right temporoparietal occipital region Carotid doppler showing < 50 % stenosis in the R ICA and 50-69% stenosis in L ICA. Will need to be followed outpatient for L ICA stenosis though at present there is no need for intervention. Echo 07/21: LVEF 50-55% and grade I diastolic dysfunction. Agitated saline contrast refused by patient. Plavix 75 mg daily Aspirin 81 mg daily LDL 54, Atorvastatin 20 mg at night Echo with bubble study ordered MRA brain/carotid ordered If workup continues to be unrevealing of stroke etiology, will need 30 day event monitor prior to DC Neurology continues to follow (3) Metabolic encephalopathy: Code(s): G93.41 - Metabolic encephalopathy Status: Acute Assessment and Plan: Likely secondary to #1. CT of the head showed possible acute or subacute infarct. MRI showing acute infarct (4) Hypertension: Qualifiers: Hypertension type: unspecified Qualified Code(s): I10 - Essential (primary) hypertension Code(s): I10 - Essential (primary) hypertension Status: Acute Assessment and Plan: Resume home medication. (5) Alcohol use: Code(s): Z72.89 - Other problems related to lifestyle Status: Acute Assessment and Plan: CIWA as needed Ativan 2 mg CIWA score for greater than 15 Librium 25 mg CIWA score between 8 and 14 (6) Muscular deconditioning: Code(s): R29.898 - Other symptoms and signs involving the musculoskeletal system Status: Acute Assessment and Plan: PT OT ordered for the patient. (7) Fall: Qualifiers: Encounter type: initial encounter Qualified Code(s): W19.XXXA - Unspecified fall, initial encounter Code(s): W19.XXXA - Unspecified fall, initial encounter Status: Acute Assessment and Plan: PT and OT consulted on the patient. Will need placement at discharge Per CC patient accepted at [facility], pending insurance authorization. (8) Hypothyroidism: Code(s): E03.9 - Hypothyroidism, unspecified Status: Acute Assessment and Plan: Continue levothyroxine 75 mcg daily. TSH 2.990 Time Spent With Patient Time with patient: 25 - 35 minutes Subjective Date/time seen: 07/27/23 06:45 Interval history: 72 year old female with a history of hypothyroidism, HTN, alcohol use due to fall and altered mental status. Patient is pleasant lying comfortably in bed. She states that she is feeling fine and has no complaints at this time. Due to the etiology of the stroke being unclear at this time neurology recommends a bubble study for shunt evaluation and an MRA brain/carotid. If workup remains unrevealing she will need a 30 day event monitor at discharge. Patient has been accepted by [facility] per care coordination note. Review of Systems Review of Systems: All systems reviewed & are unremarkable except as n
[2023-07-27 07:29] LABS: Basophils Absolute Auto 0.1 K/mm3 (0.0-0.1); Basophils Percent Auto 1.3 % (0.2-1.2); Eosinophils Absolute Auto 0.3 K/mm3 (0-0.3); Eosinophils Percent Auto 5.6 % (0-4.4); Hematocrit 43.6 % (37.0-47.0); Hemoglobin 14.8 g/dL (12.0-15.0); Immature Granulocyte Absolute 0.02 K/mm3 (0.00-0.031); Immature Granulocyte Percent A 0.4 % (0-0.5); Lymphocytes Absolute Auto 1.63 K/mm3 (0.9-3.2); Lymphocytes Percent Auto 29.6 % (18.3-44.2); Mean Corpuscular HGB Conc 33.9 g/dl (32-36); Mean Corpuscular Hemoglobin 33.3 pg (26-34); Mean Platelet Volume 11.1 fl (7.4-10.4); Monocytes Absolute Auto 0.8 K/mm3 (0.1-0.6); Monocytes Percent Auto 14.3 % (2.6-8.5); Neutrophils Absolute Auto 2.7 K/mm3 (1.3-6.7); Neutrophils Percent Auto 48.8 % (45.5-73.1); Platelet Count Result 203 k/mm3 (150-375); Red Blood Count 4.45 M/mm3 (4.2-5.4); Red Cell Distribution Width 13.2 % (11.5-14.5); White Blood Count 5.5 K/mm3 (4.5-10.0)
[2023-07-27 07:41] LABS: Alanine Aminotransferase 35 U/L (6-35); Albumin Level 3.7 g/dL (3.5-5.1); Alkaline Phosphatase 81 U/L (38-126); Anion Gap 5 mmol/L (4-12); Aspartate Amino Transferase 49 U/L (14-36); Bilirubin,Total 0.6 mg/dL (0.2-1.3); Blood Urea Nitrogen 5 mg/dL (7-17); Calcium 9.1 mg/dL (8.4-10.2); Carbon Dioxide 28 mmol/L (22-30); Chloride 101 mmol/L (98-107); Estimated CRCL calculation 61 ml/min; Estimated Glomerular Filt Rate > 60; Glucose 90 mg/dL (65-110); Potassium 3.7 mmol/L (3.4-5.0); Sodium 134 mmol/L (137-145)
[2023-07-27] MEDS: CLOPIDOGREL BISULFATE 75 MG TABLET PO (09:08)
[2023-07-27] MEDS: FLUoxetine HCL 20 MG CAPSULE PO (09:08)
[2023-07-27] MEDS: PANTOPRAZOLE 40 MG TABLET PO ×2 (09:09→20:27)
[2023-07-27] MEDS: ASPIRIN 81 MG ENTERIC TABLET PO (09:09)
[2023-07-27] MEDS: CEFDINIR 300 MG CAPSULE PO ×2 (09:09→20:27)
[2023-07-27 09:15] VITALS: PULSE 55; RESP 18; O2SAT 100
--- NOTE | 2023-07-27 09:30 | WPDNEUROPN ---
Progress Note: A&P Assessment and Plan (1) CVA (cerebral vascular accident): Code(s): I63.9 - Cerebral infarction, unspecified Status: Acute (2) Acute UTI: Code(s): N39.0 - Urinary tract infection, site not specified Status: Acute (3) Metabolic encephalopathy: Code(s): G93.41 - Metabolic encephalopathy Status: Acute Plan Ms. Acevedo is a 72 year old feale with a history of hypothyroidism, HTN, alcohol use due to fall and altered mental status. She was ulatimately found to have acute infarct in the R temporoparietal occpital region. Etiology of stroke is not clear. Her LDL and A1c are appropriate. BP has not been terribly high. No intracranial vessel imaging has been done. Carotid imaging shows some degree of stenosis in the proximal L ICA, but this would not explain the distribution of the stroke. Echo was unrevealing, but patient refused the bubble study. - Patient will need vessel imaging -- please obtain CTA brain/carotid - Agree with Aspirin 81mg daily - Etiology of stroke is unclear at this point -- recommend Plavix 75mg daily - Recommend bubble study for evaluation of shunt - If above work-up is unrevealing, will need 30 day event monitor prior to discharge - Target normotension - Continue Lipitor 20mg daily - Evidence of L homonymous hemianopia on exam -- cannot drive until cleared by Neurology Subjective Date/time seen: 07/27/23 09:30 Interval history: Ms. Acevedo is a 72 year old feale with a history of hypothyroidism, HTN, alcohol use due to fall and altered mental status. She was found to have a UTI. During admission, CT head was obtained which showed age indeterminate stroke on the R occipital and parietal lobe. MRI brain confirmed acute infarct in the right temporoparietal occipital region. No intracranial vessel imaging has been done. Carotid doppler showed <50% stenosis in the R ICA and 50-69% stenosis in the L ICA. She had an echo done which showed EF 50-55%, she apparently refused the bubble study. Her LDL is 54. She is on Lipitor 20mg daily. She has been placed on Aspirin 81mg daily and Plavix 75mg daily. EKG showed sinus rhythm. A1c is 4.8. Her highest SBP from this admission was in the 160s, but she has actually been slightly on the lower side with BP in the 100s in the past day. Patient states that she feels fine. She could not give me a reason for why she declined the bubble study. She feels that her vision is at baseline. She denies feeling any weakness. She does not smoke. Review of Systems Review of Systems: All systems reviewed & are unremarkable except as noted in HPI and below Exam Const: General: comfortable and no acute distress Eyes: Pupils: Equal, round and reactive pupils present EOM: EOMs intact bilaterally Other: L homonymous hemianopia Resp: Effort & Inspection: normal respiratory effort Skin: General skin exam: normal color Neuro: Other: Awake, alert, PERRL, EOMI, L homonymous hemianopia. No facial asymmetric. Facial sensation is intact bilaterally. RUE 5/5, LUE 4+/5, RLE 5/5, LLE 5/5. Sensation is symmetric bilaterally. FNF intact bilaterally. Speech is fluent, comprehension intact. Extrem: General: normal to inspection Psych: Mental Status: mental status grossly normal Affect: normal affect Objective Data Vital Signs Vital Signs: Vital Signs - 24 hr 07/26/23 09:50 07/26/23 13:42 07/26/23 19:42 Temperature 36.4 C 36.1 C L Pulse Rate 77 79 Respiratory Rate 18 16 Blood Pressure 110/53 L 115/54 L Pulse Oximetry 98 97 Oxygen Delivery Room Air 07/26/23 20:00 07/27/23 06:00 Temperature 36.4 C L Pulse Rate 79 55 L Respiratory Rate 16 18 Blood Pressure 106/56 L Pulse Oximetry 97 100 Oxygen Delivery Room Air Intake/Output Intake/Output: Intake & Output 07/24/23 07/25/23 07/26/23 07/27/23 23:59 23:59 23:59 23:59 Intake Total 1180 1650 950 350 Output Total 1 Balance 1180 1649 950 350 Meds/Resul
[2023-07-27 14:00] VITALS: BP 112/58; PULSE 60; RESP 17; TEMP 36.4; O2SAT 98
[2023-07-27] MEDS: traZODone HCL 50 MG TABLET 150 MG PO (20:26)
[2023-07-27] MEDS: ATORVASTATIN 20 MG TABLET PO (20:27)
[2023-07-27 21:22] VITALS: BP 139/55; PULSE 60; RESP 18; TEMP 36.6; O2SAT 96
[2023-07-28] MEDS: ACETAMINOPHEN 325 MG TABLET 650 MG PO ×5 (03:50→23:07)
[2023-07-28 04:15] VITALS: BP 104/52; PULSE 65; RESP 16; TEMP 36.6; O2SAT 95
[2023-07-28] MEDS: LEVOTHYROXINE SODIUM 75 MCG TABLET PO (05:29)
[2023-07-28 05:55] LABS: Basophils Absolute Auto 0.1 K/mm3 (0.0-0.1); Eosinophils Absolute Auto 0.3 K/mm3 (0-0.3); Eosinophils Percent Auto 4.6 % (0-4.4); Hematocrit 42.1 % (37.0-47.0); Hemoglobin 13.9 g/dL (12.0-15.0); Immature Granulocyte Absolute 0.02 K/mm3 (0.00-0.031); Immature Granulocyte Percent A 0.3 % (0-0.5); Lymphocytes Absolute Auto 1.82 K/mm3 (0.9-3.2); Lymphocytes Percent Auto 30.2 % (18.3-44.2); Mean Platelet Volume 10.8 fl (7.4-10.4); Monocytes Absolute Auto 0.7 K/mm3 (0.1-0.6); Monocytes Percent Auto 11.4 % (2.6-8.5); Neutrophils Absolute Auto 3.2 K/mm3 (1.3-6.7); Neutrophils Percent Auto 52.5 % (45.5-73.1); Platelet Count Result 200 k/mm3 (150-375); Red Blood Count 4.34 M/mm3 (4.2-5.4); Red Cell Distribution Width 12.8 % (11.5-14.5)
[2023-07-28 06:23] LABS: Alanine Aminotransferase 28 U/L (6-35); Albumin Level 3.5 g/dL (3.5-5.1); Alkaline Phosphatase 68 U/L (38-126); Anion Gap 6 mmol/L (4-12); Aspartate Amino Transferase 28 U/L (14-36); Bilirubin,Total 0.5 mg/dL (0.2-1.3); Blood Urea Nitrogen 4 mg/dL (7-17); Calcium 9.1 mg/dL (8.4-10.2); Carbon Dioxide 27 mmol/L (22-30); Chloride 102 mmol/L (98-107); Estimated CRCL calculation 70 ml/min; Estimated Glomerular Filt Rate > 60; Glucose 98 mg/dL (65-110); Potassium 3.6 mmol/L (3.4-5.0); Sodium 135 mmol/L (137-145)
[2023-07-28 07:31] LABS: Atypical Lymphocytes Present; Platelet Estimate Adequate (Adequate); Schistocytes None Seen
[2023-07-28] MEDS: ASPIRIN 81 MG ENTERIC TABLET PO (08:36)
[2023-07-28] MEDS: CLOPIDOGREL BISULFATE 75 MG TABLET PO (08:36)
[2023-07-28] MEDS: FLUoxetine HCL 20 MG CAPSULE PO (08:37)
[2023-07-28] MEDS: CEFDINIR 300 MG CAPSULE PO ×2 (08:37→19:37)
[2023-07-28] MEDS: PANTOPRAZOLE 40 MG TABLET PO ×2 (08:37→19:37)
--- NOTE | 2023-07-28 09:43 | WPDNEUROPN ---
Progress Note: A&P Assessment and Plan (1) CVA (cerebral vascular accident): Code(s): I63.9 - Cerebral infarction, unspecified Status: Acute (2) Acute UTI: Code(s): N39.0 - Urinary tract infection, site not specified Status: Acute (3) Metabolic encephalopathy: Code(s): G93.41 - Metabolic encephalopathy Status: Acute Plan Ms. Acevedo is a 72 year old female with a history of hypothyroidism, HTN, alcohol use due to fall and altered mental status. She was ultimately found to have acute infarct in the R temporoparietal occipital region. Etiology of stroke is not clear. Her LDL and A1c are appropriate. BP has not been terribly high. Carotid imaging shows some degree of stenosis in the proximal L ICA, but this would not explain the distribution of the stroke. 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 Echo was unrevealing, but patient refused the bubble study. My concern is for a proximal source of the thrombus, possibly cardioembolic. I have discussed the risk of forgoing cardiac testing. Patient is refusing bubble study. I let her know that without knowing the etiology of stroke, she is at risk for having additional strokes that can be even more disabling. She continues to decline the bubble study. She is agreeable to the 30 day event monitor on discharge and Cardiology follow-up as outpatient. - Agree with Aspirin 81mg daily - Etiology of stroke is unclear at this point -- recommend Plavix 75mg daily x 3 weeks - Recommend bubble study for evaluation of shunt -- patient declined - Will need 30 day event monitor prior to discharge - Outpatient Cardiology evaluation - Target normotension - Continue Lipitor 20mg daily - Evidence of L homonymous hemianopia on exam -- cannot drive until cleared by Neurology Subjective Date/time seen: 07/28/23 09:43 Interval history: Ms. Acevedo is a 72 year old feale with a history of hypothyroidism, HTN, alcohol use due to fall and altered mental status. She was found to have a UTI. During admission, CT head was obtained which showed age indeterminate stroke on the R occipital and parietal lobe. MRI brain confirmed acute infarct in the right temporoparietal occipital region. No intracranial vessel imaging has been done. Carotid doppler showed <50% stenosis in the R ICA and 50-69% stenosis in the L ICA. She had an echo done which showed EF 50-55%, she apparently refused the bubble study. Her LDL is 54. She is on Lipitor 20mg daily. She has been placed on Aspirin 81mg daily and Plavix 75mg daily. EKG showed sinus rhythm. A1c is 4.8. Her highest SBP from this admission was in the 160s, but she has actually been slightly on the lower side with BP in the 100s in the past day. Patient states that she feels fine. She could not give me a reason for why she declined the bubble study. She feels that her vision is at baseline. She denies feeling any weakness. She does not smoke. MRA brain shows total occlusino of the proximal R MCA. Review of Systems Review of Systems: All systems reviewed & are unremarkable except as noted in HPI and below Exam Const: General: comfortable and no acute distress Eyes: Pupils: Equal, round and reactive pupils present EOM: EOMs intact bilaterally Other: L homonymous hemianopia Resp: Effort & Inspection: normal respiratory effort Skin: General skin exam: normal color Neuro: Other: Awake, alert, PERRL, EOMI, L homonymous hemianopia. No facial asymmetric. Facial sensation is intact bilaterally. RUE 5/5, LUE 4+/5, RLE 5/5, LLE 5/5. Sensation is symmetric bilaterally. FNF intact bilaterally. Speech is fluent, comprehension intact. Extrem: General: normal to inspection Psych: Mental Status: mental status grossly normal Affect: normal affect Objective Data Vital Signs Vital Signs: Vital Signs - 24 hr 07/27/23 14:00 07/27/23 20:00 07/27/23 21:22 Temperature 36.4 C 36.6 C
--- NOTE | 2023-07-28 09:51 | PCNWS ---
Weekly nutritional screen. Patient is tolerating current diet with adequate intake. No weight loss reported. No nutritional needs at this time.
--- NOTE | 2023-07-28 14:12 | PM.IMPN ---
Progress Note: A&P Assessment and Plan (1) Acute UTI: Code(s): N39.0 - Urinary tract infection, site not specified Status: Acute Assessment and Plan: - UA:positive nitrate, 3+ LE, 3-5 rbc's and greater than 100 wbc's - UC obtained on 07/19: klebsiella pneumoniae pansensitive - no previous micro to be reviewed - previously on rocephin, discontinued on 07/21 due to patient refusing IV acess. Cefdinir started on 07/21 - Blood cultures no growth on final result (2) CVA (cerebral vascular accident): Code(s): I63.9 - Cerebral infarction, unspecified Status: Acute Assessment and Plan: No focal deficits at this time. CT Head no fracture or acute intracranial hemorrhage. A few small old infarcts as well as the few additional age-indeterminate small regions of loss of pond-white matter differentiation without definitive encephalomalacia which could represent more recent, potentially acute or subacute infarcts. MRI showing acute infarct of the right temporoparietal occipital region Carotid doppler showing < 50 % stenosis in the R ICA and 50-69% stenosis in L ICA. Will need to be followed outpatient for L ICA stenosis though at present there is no need for intervention. Echo 07/21: LVEF 50-55% and grade I diastolic dysfunction. Agitated saline contrast refused by patient. Plavix 75 mg daily Aspirin 81 mg daily LDL 54, Atorvastatin 20 mg at night Echo with bubble study refused. Discussed with patient the importance of ruling out shunting. She states understanding and continues to refuse. 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 If workup continues to be unrevealing of stroke etiology, will need 30 day event monitor prior to DC. Patient agrees. Neurology continues to follow (3) Metabolic encephalopathy: Code(s): G93.41 - Metabolic encephalopathy Status: Acute Assessment and Plan: Likely secondary to #1. CT of the head showed possible acute or subacute infarct. MRI showing acute infarct (4) Hypertension: Qualifiers: Hypertension type: unspecified Qualified Code(s): I10 - Essential (primary) hypertension Code(s): I10 - Essential (primary) hypertension Status: Acute Assessment and Plan: Resume home medication. (5) Alcohol use: Code(s): Z72.89 - Other problems related to lifestyle Status: Acute Assessment and Plan: CIWA as needed Ativan 2 mg CIWA score for greater than 15 Librium 25 mg CIWA score between 8 and 14 (6) Muscular deconditioning: Code(s): R29.898 - Other symptoms and signs involving the musculoskeletal system Status: Acute Assessment and Plan: PT OT ordered for the patient. (7) Fall: Qualifiers: Encounter type: initial encounter Qualified Code(s): W19.XXXA - Unspecified fall, initial encounter Code(s): W19.XXXA - Unspecified fall, initial encounter Status: Acute Assessment and Plan: PT and OT consulted on the patient. Will need placement at discharge Per [facility] patient accepted at [facility], pending insurance authorization. (8) Hypothyroidism: Code(s): E03.9 - Hypothyroidism, unspecified Status: Acute Assessment and Plan: Continue levothyroxine 75 mcg daily. TSH 2.990 Time Spent With Patient Time with patient: 25 - 35 minutes Subjective Date/time seen: 07/28/23 14:12 Interval history: 72 year old female with a history of hypothyroidism, HTN, alcohol use due to fall and altered mental status. Patient is pleasant lying in bed without complaints. She states she feels fine and wishes to go home. Discussed with patient that she was accepted at [facility], however we are still waiting on authorization from her hemoglobin. She states understanding. She was seen by neurology today and was noted to refuse the bubble study. Further discussed with the patient
[2023-07-28 14:57] VITALS: BP 110/58; PULSE 67; RESP 16; TEMP 36.6; O2SAT 100
[2023-07-28] MEDS: traZODone HCL 50 MG TABLET 150 MG PO (19:36)
[2023-07-28] MEDS: ATORVASTATIN 20 MG TABLET PO (19:36)
[2023-07-28 20:27] VITALS: BP 140/54; PULSE 60; RESP 18; TEMP 35.9; O2SAT 98
[2023-07-29 04:37] VITALS: BP 147/66; PULSE 83; RESP 16; TEMP 36.6; O2SAT 95
[2023-07-29] MEDS: ACETAMINOPHEN 325 MG TABLET 650 MG PO ×2 (04:51→13:34)
[2023-07-29] MEDS: LEVOTHYROXINE SODIUM 75 MCG TABLET PO (04:51)
[2023-07-29 05:34] LABS: Basophils Absolute Auto 0.1 K/mm3 (0.0-0.1); Basophils Percent Auto 0.9 % (0.2-1.2); Eosinophils Absolute Auto 0.3 K/mm3 (0-0.3); Eosinophils Percent Auto 3.9 % (0-4.4); Hematocrit 45.2 % (37.0-47.0); Hemoglobin 14.6 g/dL (12.0-15.0); Immature Granulocyte Absolute 0.04 K/mm3 (0.00-0.031); Immature Granulocyte Percent A 0.6 % (0-0.5); Lymphocytes Absolute Auto 2.84 K/mm3 (0.9-3.2); Lymphocytes Percent Auto 42.5 % (18.3-44.2); Mean Corpuscular HGB Conc 32.3 g/dl (32-36); Mean Corpuscular Hemoglobin 31.5 pg (26-34); Mean Corpuscular Volume 97.6 fl (80-100); Mean Platelet Volume 10.8 fl (7.4-10.4); Monocytes Absolute Auto 0.7 K/mm3 (0.1-0.6); Monocytes Percent Auto 9.7 % (2.6-8.5); Neutrophils Absolute Auto 2.8 K/mm3 (1.3-6.7); Neutrophils Percent Auto 42.4 % (45.5-73.1); Platelet Count Result 216 k/mm3 (150-375); Red Blood Count 4.63 M/mm3 (4.2-5.4); Red Cell Distribution Width 12.7 % (11.5-14.5); White Blood Count 6.7 K/mm3 (4.5-10.0)
[2023-07-29 05:49] LABS: Alanine Aminotransferase 27 U/L (6-35); Albumin Level 4.1 g/dL (3.5-5.1); Alkaline Phosphatase 78 U/L (38-126); Anion Gap 6 mmol/L (4-12); Aspartate Amino Transferase 27 U/L (14-36); Bilirubin,Total 0.7 mg/dL (0.2-1.3); Blood Urea Nitrogen 4 mg/dL (7-17); Calcium 9.2 mg/dL (8.4-10.2); Carbon Dioxide 28 mmol/L (22-30); Chloride 100 mmol/L (98-107); Estimated CRCL calculation 70 ml/min; Estimated Glomerular Filt Rate > 60; Glucose 84 mg/dL (65-110); Potassium 3.7 mmol/L (3.4-5.0); Sodium 134 mmol/L (137-145)
[2023-07-29] MEDS: CLOPIDOGREL BISULFATE 75 MG TABLET PO (08:39)
[2023-07-29] MEDS: FLUoxetine HCL 20 MG CAPSULE PO (08:39)
[2023-07-29] MEDS: PANTOPRAZOLE 40 MG TABLET PO ×2 (08:39→20:01)
[2023-07-29] MEDS: CEFDINIR 300 MG CAPSULE PO (08:39)
[2023-07-29] MEDS: ASPIRIN 81 MG ENTERIC TABLET PO (08:39)
--- NOTE | 2023-07-29 08:40 | PM.IMPN ---
Progress Note: A&P Assessment and Plan (1) Acute UTI: Code(s): N39.0 - Urinary tract infection, site not specified Status: Acute Assessment and Plan: - UA:positive nitrate, 3+ LE, 3-5 rbc's and greater than 100 wbc's - UC obtained on 07/19: klebsiella pneumoniae pansensitive - no previous micro to be reviewed - previously on rocephin, discontinued on 07/21 due to patient refusing IV acess. Cefdinir started on 07/21. Completed today. - Blood cultures no growth on final result (2) CVA (cerebral vascular accident): Code(s): I63.9 - Cerebral infarction, unspecified Status: Acute Assessment and Plan: No focal deficits at this time. CT Head no fracture or acute intracranial hemorrhage. A few small old infarcts as well as the few additional age-indeterminate small regions of loss of pond-white matter differentiation without definitive encephalomalacia which could represent more recent, potentially acute or subacute infarcts. MRI showing acute infarct of the right temporoparietal occipital region Carotid doppler showing < 50 % stenosis in the R ICA and 50-69% stenosis in L ICA. Will need to be followed outpatient for L ICA stenosis though at present there is no need for intervention. Echo 07/21: LVEF 50-55% and grade I diastolic dysfunction. Agitated saline contrast refused by patient. Plavix 75 mg daily Aspirin 81 mg daily LDL 54, Atorvastatin 20 mg at night Echo with bubble study refused. Discussed with patient the importance of ruling out shunting. She states understanding and continues to refuse. 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 If workup continues to be unrevealing of stroke etiology, will need 30 day event monitor prior to DC. Patient agrees. Neurology continues to follow (3) Metabolic encephalopathy: Code(s): G93.41 - Metabolic encephalopathy Status: Acute Assessment and Plan: Likely secondary to #1. CT of the head showed possible acute or subacute infarct. MRI showing acute infarct (4) Hypertension: Qualifiers: Hypertension type: unspecified Qualified Code(s): I10 - Essential (primary) hypertension Code(s): I10 - Essential (primary) hypertension Status: Acute Assessment and Plan: Resume home medication. (5) Alcohol use: Code(s): Z72.89 - Other problems related to lifestyle Status: Acute Assessment and Plan: CIWA as needed Ativan 2 mg CIWA score for greater than 15 Librium 25 mg CIWA score between 8 and 14 (6) Muscular deconditioning: Code(s): R29.898 - Other symptoms and signs involving the musculoskeletal system Status: Acute Assessment and Plan: PT OT ordered for the patient. (7) Fall: Qualifiers: Encounter type: initial encounter Qualified Code(s): W19.XXXA - Unspecified fall, initial encounter Code(s): W19.XXXA - Unspecified fall, initial encounter Status: Acute Assessment and Plan: PT and OT consulted on the patient. Will need placement at discharge Per CC patient accepted at [facility], pending insurance authorization. (8) Hypothyroidism: Code(s): E03.9 - Hypothyroidism, unspecified Status: Acute Assessment and Plan: Continue levothyroxine 75 mcg daily. TSH 2.990 Time Spent With Patient Time with patient: 25 - 35 minutes Subjective Date/time seen: 07/29/23 08:40 Interval history: 72 year old female with a history of hypothyroidism, HTN, alcohol use due to fall and altered mental status. Patient is pleasant sitting in bed. She is AOx2 (person and place) but continues to be confused on the year. She continues to want to go home but is agreeable to SNF. Patient has acceptance at [facility] with insurance authorization pending. She denies chest pain, headache, shortness of breath, weakness, tingling/numbness, vision changes, and ch
[2023-07-29 15:21] VITALS: BP 103/55; PULSE 60; RESP 16; TEMP 36; O2SAT 99
[2023-07-29] MEDS: traZODone HCL 50 MG TABLET 150 MG PO (20:01)
[2023-07-29] MEDS: ATORVASTATIN 20 MG TABLET PO (20:01)
[2023-07-29] MEDS: clonazePAM (*CRX) 0.5 MG TABLET 1 MG PO (20:05)
[2023-07-29 20:34] VITALS: BP 121/90; PULSE 67; RESP 16; TEMP 36.8; O2SAT 100
[2023-07-30 05:25] LABS: Basophils Absolute Auto 0.1 K/mm3 (0.0-0.1); Basophils Percent Auto 0.8 % (0.2-1.2); Eosinophils Absolute Auto 0.2 K/mm3 (0-0.3); Hematocrit 41.6 % (37.0-47.0); Immature Granulocyte Absolute 0.04 K/mm3 (0.00-0.031); Immature Granulocyte Percent A 0.5 % (0-0.5); Lymphocytes Absolute Auto 2.26 K/mm3 (0.9-3.2); Mean Corpuscular HGB Conc 33.7 g/dl (32-36); Mean Corpuscular Hemoglobin 32.5 pg (26-34); Mean Corpuscular Volume 96.5 fl (80-100); Mean Platelet Volume 10.7 fl (7.4-10.4); Monocytes Absolute Auto 0.6 K/mm3 (0.1-0.6); Monocytes Percent Auto 8.7 % (2.6-8.5); Neutrophils Absolute Auto 4.1 K/mm3 (1.3-6.7); Platelet Count Result 212 k/mm3 (150-375); Red Blood Count 4.31 M/mm3 (4.2-5.4); Red Cell Distribution Width 12.7 % (11.5-14.5); White Blood Count 7.3 K/mm3 (4.5-10.0)
[2023-07-30 05:38] VITALS: BP 109/55; PULSE 72; RESP 18; TEMP 36.4; O2SAT 93
[2023-07-30 05:48] LABS: Alanine Aminotransferase 27 U/L (6-35); Albumin Level 3.7 g/dL (3.5-5.1); Alkaline Phosphatase 75 U/L (38-126); Anion Gap 5 mmol/L (4-12); Aspartate Amino Transferase 28 U/L (14-36); Bilirubin,Total 0.5 mg/dL (0.2-1.3); Blood Urea Nitrogen 5 mg/dL (7-17); Calcium 9.3 mg/dL (8.4-10.2); Carbon Dioxide 30 mmol/L (22-30); Chloride 102 mmol/L (98-107); Estimated CRCL calculation 61 ml/min; Estimated Glomerular Filt Rate > 60; Glucose 87 mg/dL (65-110); Potassium 3.7 mmol/L (3.4-5.0); Sodium 137 mmol/L (137-145)
[2023-07-30] MEDS: LEVOTHYROXINE SODIUM 75 MCG TABLET PO (06:29)
--- NOTE | 2023-07-30 07:02 | PM.IMPN ---
Progress Note: A&P Assessment and Plan (1) Acute UTI: Code(s): N39.0 - Urinary tract infection, site not specified Status: Acute Assessment and Plan: - UA:positive nitrate, 3+ LE, 3-5 rbc's and greater than 100 wbc's - UC obtained on 07/19: klebsiella pneumoniae pansensitive - no previous micro to be reviewed - previously on rocephin, discontinued on 07/21 due to patient refusing IV acess. Cefdinir started on 07/21. Completed antibiotic course. - Blood cultures no growth on final result (2) CVA (cerebral vascular accident): Code(s): I63.9 - Cerebral infarction, unspecified Status: Acute Assessment and Plan: No focal deficits at this time. CT Head no fracture or acute intracranial hemorrhage. A few small old infarcts as well as the few additional age-indeterminate small regions of loss of pond-white matter differentiation without definitive encephalomalacia which could represent more recent, potentially acute or subacute infarcts. MRI showing acute infarct of the right temporoparietal occipital region Carotid doppler showing < 50 % stenosis in the R ICA and 50-69% stenosis in L ICA. Will need to be followed outpatient for L ICA stenosis though at present there is no need for intervention. Echo 07/21: LVEF 50-55% and grade I diastolic dysfunction. Agitated saline contrast refused by patient. Plavix 75 mg daily Aspirin 81 mg daily LDL 54, Atorvastatin 20 mg at night Echo with bubble study refused. Discussed with patient the importance of ruling out shunting. She states understanding and continues to refuse. 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 If workup continues to be unrevealing of stroke etiology, will need 30 day event monitor prior to DC. Patient agrees. Neurology continues to follow (3) Metabolic encephalopathy: Code(s): G93.41 - Metabolic encephalopathy Status: Acute Assessment and Plan: Likely secondary to #1. CT of the head showed possible acute or subacute infarct. MRI showing acute infarct (4) Hypertension: Qualifiers: Hypertension type: unspecified Qualified Code(s): I10 - Essential (primary) hypertension Code(s): I10 - Essential (primary) hypertension Status: Acute Assessment and Plan: Resume home medication. (5) Alcohol use: Code(s): Z72.89 - Other problems related to lifestyle Status: Acute Assessment and Plan: CIWA as needed Ativan 2 mg CIWA score for greater than 15 Librium 25 mg CIWA score between 8 and 14 (6) Muscular deconditioning: Code(s): R29.898 - Other symptoms and signs involving the musculoskeletal system Status: Acute Assessment and Plan: PT OT ordered for the patient. (7) Fall: Qualifiers: Encounter type: initial encounter Qualified Code(s): W19.XXXA - Unspecified fall, initial encounter Code(s): W19.XXXA - Unspecified fall, initial encounter Status: Acute Assessment and Plan: PT and OT consulted on the patient. Will need placement at discharge Per CC patient accepted at [facility], pending insurance authorization. (8) Hypothyroidism: Code(s): E03.9 - Hypothyroidism, unspecified Status: Acute Assessment and Plan: Continue levothyroxine 75 mcg daily. TSH 2.990 Time Spent With Patient Time with patient: 25 - 35 minutes Subjective Date/time seen: 07/30/23 07:02 Interval history: 72 year old female with a history of hypothyroidism, HTN, alcohol use due to fall and altered mental status. Patient is pleasant sitting up on side of bed. She continues to be AOx2 (baseline). She has no neurological deficits on exam. She denies weakness, headaches, vision changes, chest pain, shortness of breath, nausea/vomiting, and changes in bowel/bladder. She continues to want to go home. Discussed with patient that we are still
[2023-07-30 14:18] VITALS: BP 128/48; PULSE 68; RESP 14; TEMP 36.9; O2SAT 98
[2023-07-30] MEDS: ACETAMINOPHEN 325 MG TABLET 650 MG PO (16:15)
[2023-07-30] MEDS: FLUoxetine HCL 20 MG CAPSULE PO (16:16)
[2023-07-30] MEDS: ASPIRIN 81 MG ENTERIC TABLET PO (16:16)
[2023-07-30] MEDS: CLOPIDOGREL BISULFATE 75 MG TABLET PO (16:16)
[2023-07-30 20:35] VITALS: BP 135/53; PULSE 104; RESP 22; TEMP 37; O2SAT 98
[2023-07-30] MEDS: ATORVASTATIN 20 MG TABLET PO (20:47)
[2023-07-30] MEDS: traZODone HCL 50 MG TABLET 150 MG PO (20:47)
[2023-07-30] MEDS: PANTOPRAZOLE 40 MG TABLET PO (20:48)
[2023-07-31 05:45] VITALS: BP 125/55; PULSE 82; RESP 20; TEMP 36.7; O2SAT 98
[2023-07-31 06:02] LABS: Basophils Absolute Auto 0.1 K/mm3 (0.0-0.1); Basophils Percent Auto 0.7 % (0.2-1.2); Eosinophils Absolute Auto 0.3 K/mm3 (0-0.3); Eosinophils Percent Auto 3.1 % (0-4.4); Hematocrit 44.7 % (37.0-47.0); Hemoglobin 14.7 g/dL (12.0-15.0); Immature Granulocyte Absolute 0.03 K/mm3 (0.00-0.031); Immature Granulocyte Percent A 0.4 % (0-0.5); Lymphocytes Percent Auto 24.7 % (18.3-44.2); Mean Corpuscular HGB Conc 32.9 g/dl (32-36); Mean Corpuscular Hemoglobin 31.8 pg (26-34); Mean Corpuscular Volume 96.8 fl (80-100); Mean Platelet Volume 10.7 fl (7.4-10.4); Monocytes Absolute Auto 0.6 K/mm3 (0.1-0.6); Monocytes Percent Auto 7.4 % (2.6-8.5); Neutrophils Absolute Auto 5.2 K/mm3 (1.3-6.7); Neutrophils Percent Auto 63.7 % (45.5-73.1); Platelet Count Result 224 k/mm3 (150-375); Red Blood Count 4.62 M/mm3 (4.2-5.4); Red Cell Distribution Width 12.8 % (11.5-14.5); White Blood Count 8.1 K/mm3 (4.5-10.0)
[2023-07-31 06:18] LABS: Alanine Aminotransferase 28 U/L (6-35); Albumin Level 4.2 g/dL (3.5-5.1); Alkaline Phosphatase 67 U/L (38-126); Anion Gap 6 mmol/L (4-12); Aspartate Amino Transferase 34 U/L (14-36); Bilirubin,Total 0.8 mg/dL (0.2-1.3); Blood Urea Nitrogen 5 mg/dL (7-17); Carbon Dioxide 28 mmol/L (22-30); Chloride 101 mmol/L (98-107); Estimated CRCL calculation 70 ml/min; Estimated Glomerular Filt Rate > 60; Glucose 91 mg/dL (65-110); Potassium 3.9 mmol/L (3.4-5.0); Sodium 135 mmol/L (137-145)
[2023-07-31] MEDS: ACETAMINOPHEN 325 MG TABLET 650 MG PO (07:55)
[2023-07-31] MEDS: ASPIRIN 81 MG ENTERIC TABLET PO (08:04)
[2023-07-31] MEDS: CLOPIDOGREL BISULFATE 75 MG TABLET PO (08:04)
[2023-07-31] MEDS: PANTOPRAZOLE 40 MG TABLET PO (08:04)
[2023-07-31] MEDS: FLUoxetine HCL 20 MG CAPSULE PO (08:04)
[2023-07-31 14:00] VITALS: BP 128/58; PULSE 83; RESP 19; TEMP 36.4; O2SAT 95
--- NOTE | 2023-07-31 14:40 | PM.DS ---
DS: Admitting Diagnosis Discharge Date 07/31/23 Admitting Diagnosis Acute UTI CVA Metabolic encephalopathy Hypertension Alcohol use Muscular deconditioning Fall Hypothyroidism DS: Discharge Diagnosis Discharge Diagnosis (1) Acute UTI: Code(s): N39.0 - Urinary tract infection, site not specified Status: Acute (2) CVA (cerebral vascular accident): Code(s): I63.9 - Cerebral infarction, unspecified Status: Acute (3) Metabolic encephalopathy: Code(s): G93.41 - Metabolic encephalopathy Status: Acute (4) Hypertension: Qualifiers: Hypertension type: unspecified Qualified Code(s): I10 - Essential (primary) hypertension Code(s): I10 - Essential (primary) hypertension Status: Acute (5) Alcohol use: Code(s): Z72.89 - Other problems related to lifestyle Status: Acute (6) Muscular deconditioning: Code(s): R29.898 - Other symptoms and signs involving the musculoskeletal system Status: Acute (7) Fall: Qualifiers: Encounter type: initial encounter Qualified Code(s): W19.XXXA - Unspecified fall, initial encounter Code(s): W19.XXXA - Unspecified fall, initial encounter Status: Acute (8) Hypothyroidism: Code(s): E03.9 - Hypothyroidism, unspecified Status: Acute DS: Summary Hospital Course Reason for hospitalization: Acute UTI CVA Metabolic encephalopathy Hypertension Alcohol use Muscular deconditioning Fall Hypothyroidism Hospital Course: 72 year old female with a history of hypothyroidism, HTN, alcohol use due to fall and altered mental status. She underwent imaging and MRI?revealed an acute infarct of the right temporoparietal occipital region. She has no noted neurological deficits. Neurology was consulted and patient was started on plavix and aspirin. She underwent a full stroke workup besides an ehco with bubble study that she refused during her admission. Etiology of the stroke remains unknown at this time. A 30 day cardiac monitored was ordered and patient is agreeable to this study. She will follow up with neurology and cardiology as scheduled. Patient found to have a UTI on UA. She was started on cefdinir and this antibiotic course was completed during admission. Patient was originally suppose to be discharged to SNF, however she is now refusing. She is AO to person, place, president but unable to state year noting that it is sometime in the . Discussed this with care coordination who performed a mini mental exam which was normal. Patient will now be discharged with home health. Patient discharged home with home health in a stable condition. She is unable to drive until cleared by neurology. She will follow up with her PCP in 1 week and neurology as scheduled. A 30 day cardiac event monitor was ordered at time of discharge and patient aware that she is to follow up with cardiology per neurology recommendations. Status at Discharge Functional status at discharge: independent ambulation Time Spent with Patient Time attestation: Total time spent providing and/or coordinating discharge services: Time spent: Greater than 30 minutes Exam Narrative: AF HR 83 RR 19 SpO2 95 BP 128/58 General: female in no acute respiratory distress who is nontoxic appearing, sitting up in bed HEENT: Normocephalic. Atraumatic. Pupils equal round reactive to light. Extraocular movement intact. Sclera clear and anicteric. Nares patent. No facial asymmetry. Chest: Lungs are clear to auscultation bilaterally. No wheezes or crackles. CV: Heart was regular rate and rhythm. S1-S2. No murmurs, gallops, or rubs. Abd: Abdomen was soft. Nontender. Nondistended. Positive bowel sounds. No organomegaly or masses. Ext: No clubbing, cyanosis, or edema. 2+ DP pulses bilaterally. Neuro: AOx2. Speech is clear. Strength is 5/5 in both upper and lower extremities. Finger to nose test is negative. Heel borjas test is negative. Psych: No
== END 2023-07-31 16:25 | DRG 64 ==
LOC: ANHED 18:50 → ANH3MEDSUR 19:40 → ANH2MED 20:23
PROVIDERS: Internal Medicine Critical Care Medicine; Nurse Practitioner Family; Student in an Organized Health Care Education/Training Program; Admitting Provider Hospitalist; Emergency Provider Emergency Medicine; Visit Provider Internal Medicine
DX: I63.9 Cerebral infarction, unspecified (principal); G93.41 Metabolic encephalopathy; N39.0 Urinary tract infection, site not specified; B96.1 Klebsiella pneumoniae [K. pneumoniae] as the cause of diseases classified elsewhere; H53.9 Unspecified visual disturbance; E78.5 Hyperlipidemia, unspecified; E03.9 Hypothyroidism, unspecified; F32.A Depression, unspecified; I10 Essential (primary) hypertension; R29.898 Other symptoms and signs involving the musculoskeletal system; W18.30XA Fall on same level, unspecified, initial encounter; Z53.29 Procedure and treatment not carried out because of patient's decision for other reasons; Z87.891 Personal history of nicotine dependence; Z90.49 Acquired absence of other specified parts of digestive tract; Z90.710 Acquired absence of both cervix and uterus; Z72.89 Other problems related to lifestyle
CPT/HCPCS: 36415; 70450; 70544; 70551; 71046; 80048; 80053; 80061; 81001; 82948; 83036; 84443; 85025; 85027; 87040; 87077; 87086; 87088; 87186; 93880; 96361; 96365; 96372; 96375; 97110; 97112; 97116; 97161; 97165; 97530; 97535; 99285; A9270; C8929; G0378; J0696; J1630; J7030

== ENCOUNTER 2023-08-03 18:12 | Inpatient (IN) | payer MEDICARE, SELFPAY ==
--- NOTE | ~2023-08-03 | CT_ITS ---
EXAMINATION: CT brain wo con DATE: 08/03/2023 20:18 INDICATION: Altered mental status TECHNIQUE: Computed tomography (CT) of the head was performed without intravenous contrast. Sagittal and coronal reconstructions were performed. The mA was adjusted according to patient size. Iterative reconstruction technique was employed. The dose-length product was 605.33 mGy-cm. COMPARISON: head CT dated 07/30/2023 and brain MR dated 07/21/2023 FINDINGS: 1 prominent decreased attenuation consistent with evolution of the previously seen small infarct in t he right temporal parietal occipital region. Additional small old lacunar infarcts at the right basal ganglia and right frontal lobe periventricular white matter. No acute intracranial hemorrhage, acute infarction or abnormal extra axial fluid collection. There is mild scattered white matter hypoattenu ation consistent with chronic small vessel ischemic disease. Symmetric prominence of the sulci and ve ntricles consistent with mild age-appropriate diffuse cerebral volume loss. No mass/mass effect. Santos ges of bilateral intraocular lens replacement. The orbits and mastoid air cells are normal. Is retent ion cyst in the right sphenoid sinus with small amount of dependently layering mucus in the left sphe noid sinus. Osteoma the right frontoethmoidal recess. IMPRESSION: 1. Interval evolution of the previously acute small infarct in the right temporal parietal occipital region. No acute intracranial process. 2. Additional small old lacunar infarcts in the right basal ganglia and right frontal lobe periventri cular white matter. 3. Age-related changes including mild diffuse volume loss and mild scattered white matter hypoattenua tion consistent with chronic small vessel ischemic disease. Reviewed, dictated and finalized at location A. IMPRESSION: 1. Interval evolution of the previously acute small infarct in the right tempor al parietal occipital region. No acute intracranial process. 2. Additional small old lacunar infarcts in the right basal ganglia and right f rontal lobe periventricular white matter. 3. Age-related changes including mild diffuse volume loss and mild scattered wh ite matter hypoattenuation consistent with chronic small vessel ischemic diseas e.
--- NOTE | ~2023-08-03 | XR_ITS ---
EXAMINATION: XR chest 1V portable DATE: 08/03/2023 20:22 INDICATION: Altered mental status TECHNIQUE: frontal view of the chest was obtained. COMPARISON: Chest radiograph dated 07/30/2023 FINDINGS: Calcified nodule right midlung with calcified right hilar and mediastinal lymph nodes consistent with old granulomatous disease. No other airspace opacities, pulmonary edema, pleural effusion or pneumot horax. The cardiomediastinal silhouette is normal. Multiple bilateral old rib fractures. Plate and sc rew fixation along the right humeral diaphysis. IMPRESSION: 1. No acute cardiopulmonary disease. Reviewed, dictated and finalized at location A.
[2023-08-03 18:13] VITALS: BP 117/55; PULSE 81; RESP 20; TEMP 36.4; O2SAT 95
--- NOTE | 2023-08-03 19:06 | ECG_ITS ---
SEE SCANNED COPY FOR CONFIRMED REPORT MTDD
[2023-08-03 19:40] LABS: Appearance Urine Cloudy (Clear); Bacteria Urine 4+ /hpf; Bilirubin Urine Negative (Negative); Blood Urine 1+ (Negative); Color Urine Yellow (Yellow); Glucose Urine UA Negative (Negative); Ketones Urine Negative (Negative); Leukocyte Esterase Ur 3+ LEU/UL (Negative); Nitrate Urine Positive (Negative); Non Pathogenic Casts 0-2; Protein Urine Negative (Negative); RBC Urine 0-2 /hpf (0-2); Specific Grav Ur 1.005 (1.001-1.035); Squamous Epithelial Cell Urine Few /hpf (Few); Urobilinogen Urine 0.2 mg/dL (<2.0); WBC Urine >100 /hpf (0-3)
[2023-08-03 19:45] LABS: Add Urine Microscopic? YES
--- NOTE | 2023-08-03 19:55 | ED.GENADULT ---
HPI - General Adult General Chief complaint: Altered Mental Status Stated complaint: altered mental status Time Seen by Provider: 08/03/23 19:00 History of Present Illness HPI narrative: This is a 72-year-old female presenting to the ED for altered mental status. She called EMS multiple times throughout the day and seemed confused. When they arrived her house was in disarray. she was covered in feces. She is alert to self. Patient was recently discharged after urinary tract infection and there were concerns about her mental status that time although she was able to pass a mini-mental exam. At this time the patient has no complaints. patient is denying alcohol use. She denies that she called EMS. Related Data Home Medications Medication Instructions Recorded Confirmed atorvastatin 20 mg tablet 20 mg PO HS 05/31/21 07/21/23 clonazepam 1 mg tablet 1 mg PO BID PRN Anxiety 05/31/21 07/21/23 diclofenac sodium 75 mg 75 mg PO BID PRN Pain (Scale Score 05/31/21 07/21/23 tablet,delayed release 4-6) fluoxetine 20 mg tablet 20 mg PO DAILY 05/31/21 07/21/23 omeprazole 40 mg capsule,delayed 40 mg PO DAILY 05/31/21 07/21/23 release trazodone 150 mg tablet 150 mg PO HS 05/31/21 07/21/23 Allergies Allergy/AdvReac Type Severity Reaction Status Date / Time Iodinated Contrast Media Allergy Severe DIFFICULTY Verified 06/06/23 04:00 BREATHING ampicillin Allergy Unknown Unknown Verified 06/06/23 04:00 iodine Allergy Unknown Difficulty Verified 06/06/23 04:00 Breathing Penicillins Allergy Unknown Unknown Verified 06/06/23 04:00 shellfish derived Allergy Unknown Difficulty Verified 06/06/23 04:00 Breathing PMFSH Past Medical History Medical History Hypothyroidism Surgical History Surgical History H/O vascular surgery H/O: hysterectomy Hx of appendectomy Family History Family History Grandparent Hypertension Cerebrovascular accident Diabetes mellitus Mother Family history of lung cancer Family history of malignant neoplasm Father Patient's father is Social History Social History Smoking packs per day: 1 Smoking cigarettes per day: 20.0 Years smoked: 52 Smoking pack-years: 52.00 Smoking status: Current every day smoker Tobacco type: cigarettes Second hand tobacco smoke exposure: Yes Smoking end date: 05/11/20 Alcohol intake: current Substance use: never Substance use type: does not use Do You Feel Safe in your Home?: Yes Lack of Transportation: No Lack of Food: Never True Current Housing: I Have Housing Concerned About Future Housing: No Difficulty Paying Gas/Electric Bills: No Difficulty Paying for Meds: No Currently Unemployed: No Education: High School Diploma/GED Difficulty w/ Childcare or Family Care: No Spiritual care concerns: No Exam Narrative: APPEARANCE: No apparent distress. A&O x1 but fully conversant Head: atraumatic. EYES: EOMI, NOSE: Atraumatic NECK: Trachea midline RESPIRATORY: No increased rate of breathing CTAB CARDIOVASCULAR: RRR, no peripheral edema ABDOMINAL: Non-distended soft nontender no guarding rebound no CVA tenderness MUSCULOSKELETAl: No obvious deformities NEURO: Alert. Cranial nerves 2-12 grossly intact. Sensation light touch, motor function cerebellar function intact for 4 extremities. Gait exam was normal. SKIN:: Warm, dry. Normal color PSYCHIATRIC: Normal affect Course Vital Signs Vital signs: Vital Signs Temperature 97.6 F 08/03/23 18:13 Pulse Rate 81 08/03/23 18:13 Respiratory Rate 20 08/03/23 18:13 Blood Pressure 117/55 L 08/03/23 18:13 Pulse Oximetry 95 08/03/23 18:13 Oxygen Delivery Room Air 08/03/23 18:13 Temperature 97.6 F 08/03/23 18:13 Pulse Rate 75 08/03/23 23:10 Respiratory Rate 17 08/03/23 23:10 Blood Pressure 122/65 08/03/23 23:10 Pulse Oximetry 99 08/03/23 23:10 Oxygen Delivery Room Air 08/03/23 19:26 Medical Decision Making [facility] Narrative Medical decision making narrative: -Course: this is a 72-year-old woman presenting with altered mental status. patient's alcohol level is elevated. Additionally workup significant for urinary tract infection. patient was monitored for several hours and re-evaluated when sober. Patient is denying alcohol use, she is denying that she called police multiple times. We spoke with her daughter who does not believe that she is capable of living on her own. Patient will be admitted for antibiotics and social work consult. patient does not want be admitted hospital, unfortunately at this time I do not think she is capable of making decisions for herself. We were able to convince the patient to stay so she can be evaluated by social Work. patient refused IV antibiotics was given p.o.. -DDX includes but is not limited to: Alcohol intoxication, Wernicke encephalopathy, UTI, dehydration, sepsis, pneumonia, failure to thrive -Co-morbidities complicating care: alcohol abuse, CVA -External Chart Review: review of recent discharge summary -Independent interpretation of studies: Labs reviewed. Notable for alcohol level of 180. Lactic 3.6. Will be repeated after resuscitation. Urine indicative infection. Started on ceftriaxone. CT head showed evolution of the previously acute stroke. Chest x-ray unremarkable. -Discussion of Management/Consultants: Edwige Taylor Hospitalist -Interventions: 2 L normal saline, Cefdinir, -Shared decision making / Disposition: admitted Vital Signs Vital Signs: Vital Signs Temperature 97.6 F 08/03/23 18:13 Pulse Rate 81 08/03/23 18:13 Respiratory Rate 20 08/03/23 18:13 Blood Pressure 117/55 L 08/03/23 18:13 Pulse Oximetry 95 08/03/23 18:13 Oxygen Delivery Room Air 08/03/23 18:13 Temperature 97.6 F 08/03/23 18:13 Pulse Rate 75 08/03/23 23:10 Respiratory Rate 17 08/03/23 23:10 Blood Pressure 122/65 08/03/23 23:10 Pulse Oximetry 99 08/03/23 23:10 Oxygen Delivery Room Air 08/03/23 19:26 Lab Data 08/03/23 19:51 08/03/23 19:51 Labs: Lab Results 08/03/23 08/03/23 Range/Units 19:31 19:51 WBC 9.0 (4.5-10.0) K/mm3 RBC 4.65 (4.2-5.4) M/mm3 Hgb 14.9 (12.0-15.0) g/dL Hct 43.9 (37.0-47.0) % MCV 94.4 (80-100) fl MCH 32.0 (26-34) pg MCHC 33.9 (32-36) g/dl RDW 12.7 (11.5-14.5) % Plt Count 299 (150-375) k/mm3 MPV 10.2 (7.4-10.4) fl Immature Gran % (Auto) 0.6 H (0-0.5) % Neut % (Auto) 58.7 (45.5-73.1) % Lymph % (Auto) 30.0 (18.3-44.2) % Burt % (Auto) 6.3 (2.6-8.5) % Eos % (Auto) 3.7 (0-4.4) % Baso % (Auto) 0.7 (0.2-1.2) % Lymph # (Auto) 2.71 (0.9-3.2) K/mm3 Burt # (Auto) 0.6 (0.1-0.6) K/mm3 Eos # (Auto) 0.3 (0-0.3) K/mm3 Baso # (Auto) 0.1 (0.0-0.1) K/mm3 Abs Immat Gran (auto) 0.05 H (0.00-0.031) K/mm3 Absolute Neuts (auto) 5.3 (1.3-6.7) K/mm3 Absolute Nucleated RBC 0.000 (0.0-0.012) K/mm3 Nucleated RBC % 0.0 (0.0-0.2) % PT 15.0 H (11.1-14.7) Seconds INR 1.1 APTT 30.9 (22.3-36.8) Seconds Sodium 133 L (137-145) mmol/L Potassium 3.8 (3.4-5.0) mmol/L Chloride 96 L (98-107) mmol/L Carbon Dioxide 24 (22-30) mmol/L Anion Gap 13 H (4-12) mmol/L BUN < 2 L (7-17) mg/dL Creatinine 0.60 L (0.7-1.0) mg/dL Estim Creat Clear Calc 73 ml/min Estimated GFR > 60 (59 - ) Glucose 103 (65-110) mg/dL Lactic Acid 3.6 H (0.7-2.0) mmol/L Calcium 9.2 (8.4-10.2) mg/dL Phosphorus 3.0 (2.5-4.5) mg/dL Magnesium 1.7 (1.6-2.3) mg/dL Total Bilirubin 0.6 (0.2-1.3) mg/dL AST 52 H (14-36) U/L ALT 41 H (6-35) U/L Alkaline Phosphatase 94 (38-126) U/L Total Creatine Kinase 242 H (30-135) U/L Troponin I < 0.012 (0.000-0.034) ng/mL Total Protein 8.0 (6.3-8.2) g/dL Albumin 4.6 (3.5-5.1) g/dL Lipase 73 (23-300) U/L TSH (Reflex) 1.070 (0.465-4.68) uIU/mL Urine Color Yellow (Yellow) Urine Appearance Cloudy H (Clear) Urine pH 6.0 (5.0-9.0) Ur Specific [place] 1.005 (1.001-1.035) Urine Protein Negative (Negative) mg/dL Urine Glucose (UA) Negative (Negative) mg/dL Urine Ketones Negative (Negative) mg/dL Ur Blood (Man) 1+ H (Negative) Urine Nitrate Positive H (Negative) Urine Bilirubin Negative (Negative) Urine Urobilinogen 0.2 (<2.0) mg/dL Leukocyte Esterase Rfl 3+ H (Negative) JEAN/UL Urine RBC 0-2 (0-2) /hpf Urine WBC >100 H (0-3) /hpf Ur Squamous Epith Cells Few (Few) /hpf Urine Bacteria 4+ H /hpf Urine Casts 0-2 Urine Opiates Screen Negative (Negative) Urine Methadone Screen Negative (Negative) Ur Barbiturates Screen Negative (Negative) Ur Phencyclidine Scrn Negative (Negative) Ur Amphetamine Screen Negative (Negative) U Benzodiazepines Scrn Negative (Negative) Urine Cocaine Screen Negative (Negative) U Cannabinoids Screen Negative (Negative) Ethyl Alcohol 187 (<10) mg/dL Influenza A (RT-PCR) Negative (Negative) Influenza B (RT-PCR) Negative (Negative) RSV (RT-PCR) Negative (Negative) SARS-CoV-2 RNA (RT-PCR) Negative (Negative) Discharge Plan Discharge Clinical Impression: Acute UTI, Altered mental status Patient Disposition: Still a Patient Condition: Stable Prescriptions: No Action clonazepam 1 mg tablet 1 mg PO BID PRN (Reason: Anxiety) fluoxetine 20 mg Tablet 20 mg PO DAILY atorvastatin 20 mg Tablet 20 mg PO HS omeprazole 40 mg Capsule,Delayed Release(Dr/Ec) 40 mg PO DAILY trazodone 150 mg Tablet 150 mg PO HS diclofenac sodium 75 mg Tablet,Delayed Release (Dr/Ec) 75 mg PO BID PRN (Reason: Pain (Scale Score 4-6)) hydrocodone-acetaminophen 5-325 mg tablet 1 tablet PO Q6H PRN (Reason: pain) Qty: 10 0RF Rx Instructions: Dispense TEN tablets. clopidogrel 75 mg Tablet 75 mg PO QAM Qty: 21 0RF aspirin 81 mg Tablet,Delayed Release (Dr/Ec) 81 mg PO QAM Qty: 30 0RF Follow-up/Referrals: UNKNOWN,DOCTOR [Primary Care Provider] -
[2023-08-03 20:01] LABS: Basophils Absolute Auto 0.1 K/mm3 (0.0-0.1); Basophils Percent Auto 0.7 % (0.2-1.2); Eosinophils Absolute Auto 0.3 K/mm3 (0-0.3); Eosinophils Percent Auto 3.7 % (0-4.4); Hematocrit 43.9 % (37.0-47.0); Hemoglobin 14.9 g/dL (12.0-15.0); Immature Granulocyte Absolute 0.05 K/mm3 (0.00-0.031); Immature Granulocyte Percent A 0.6 % (0-0.5); Lymphocytes Absolute Auto 2.71 K/mm3 (0.9-3.2); Mean Corpuscular HGB Conc 33.9 g/dl (32-36); Mean Corpuscular Volume 94.4 fl (80-100); Mean Platelet Volume 10.2 fl (7.4-10.4); Monocytes Absolute Auto 0.6 K/mm3 (0.1-0.6); Monocytes Percent Auto 6.3 % (2.6-8.5); Neutrophils Absolute Auto 5.3 K/mm3 (1.3-6.7); Neutrophils Percent Auto 58.7 % (45.5-73.1); Platelet Count Result 299 k/mm3 (150-375); Red Blood Count 4.65 M/mm3 (4.2-5.4); Red Cell Distribution Width 12.7 % (11.5-14.5)
[2023-08-03 20:12] LABS: Ethanol 187 mg/dL (<10)
[2023-08-03 20:14] LABS: INR 1.1
[2023-08-03 20:15] LABS: Partial Thromboplastin Time 30.9 Seconds (22.3-36.8)
[2023-08-03 20:22] LABS: Alanine Aminotransferase 41 U/L (6-35); Albumin Level 4.6 g/dL (3.5-5.1); Alkaline Phosphatase 94 U/L (38-126); Anion Gap 13 mmol/L (4-12); Aspartate Amino Transferase 52 U/L (14-36); Bilirubin,Total 0.6 mg/dL (0.2-1.3); Calcium 9.2 mg/dL (8.4-10.2); Carbon Dioxide 24 mmol/L (22-30); Chloride 96 mmol/L (98-107); Creatine Kinase 242 U/L (30-135); Estimated CRCL calculation 73 ml/min; Estimated Glomerular Filt Rate > 60; Glucose 103 mg/dL (65-110); Magnesium 1.7 mg/dL (1.6-2.3); Potassium 3.8 mmol/L (3.4-5.0); Sodium 133 mmol/L (137-145)
[2023-08-03 20:27] LABS: Troponin I < 0.012 ng/mL (0.000-0.034)
[2023-08-03 20:30] LABS: Amphetamine Screen Urine Negative (Negative); Barbiturate Screen Urine Negative (Negative); Benzodiazepines Screen Urine Negative (Negative); Cannabinoid Screen Urine Negative (Negative); Cocaine Screen Urine Negative (Negative); Methadone Screen Urine Negative (Negative); Opiate Screen Urine Negative (Negative); Phencyclidine Screen Urine Negative (Negative)
[2023-08-03 20:35] LABS: Blood Urea Nitrogen < 2 mg/dL (7-17); Lipase 73 U/L (23-300)
[2023-08-03 20:37] LABS: Influenza A QL RT-PCR Negative (Negative); Influenza B QL RT-PCR Negative (Negative); Lactic Acid Reflex 3.6 mmol/L (0.7-2.0); RSV RNA, RT-PCR Negative (Negative); SARS-CoV-2 RNA PCR Negative (Negative)
--- NOTE | 2023-08-03 22:33 | PC.NURSE ---
ED techs made me aware that pt has pulled out her IV. I instructed her that she needed IV antibiotics. She is refusing another IV and abx. EDP aware. Pt would prefer to leave AMA. EDP does not feel comfortable letting her make her own medical decisions at this time due to her mental status and alcohol level. Will continue to monitor.
--- NOTE | 2023-08-03 22:48 | PC.NURSE ---
Discussed with pt concerns for her needing abx for her UTI and needing to be admitted. Pt states she does not have a UTI and does not want to be admitted. Explained to pt that at this time is unable to AMA d/t her alcohol level and confusion she demonstrated earlier. Pt not receptive and continues to refuse IV access and abx at this time. SHAJI York and Dr Montoya aware.
[2023-08-03 22:58] LABS: Reflex Lactic Acid Yes or No Add Lactic
[2023-08-03 23:09] VITALS: PULSE 76
[2023-08-03 23:10] VITALS: BP 122/65; PULSE 75; RESP 17; O2SAT 99
--- NOTE | 2023-08-03 23:24 | PC.NURSE ---
Upon entering the patient's room patient states I want to go home and I don't want an IV . Notified. EDP Dr. Montoya and executive housekeeper.
--- NOTE | 2023-08-03 23:29 | PC.NURSE ---
patient refusing blood draws until it is time to have her alcohol levels redrawn. Notified EDP Dr. Montoya
[2023-08-03] MEDS: CEFDINIR 300 MG CAPSULE PO (23:37)
--- NOTE | 2023-08-03 23:41 | PC.NURSE ---
I contacted the Department of Aging about this patients condition and living situation. I spoke with Will and he says he will open a case concerning this patient. The case number will be [id number].
--- NOTE | 2023-08-04 00:20 | P.HP_ITS ---
H&P: HPI History of Present Illness Date/Time: 08/04/23 00:20 Chief Complaint: confusion Narrative: patient is 72-year-old female presented to the emergency room with altered mental status. Patient seems much more confused when she arrived at the emergency room patient was history of urine tract infection also history of alcohol use in patient deny fever chills nausea vomiting diarrhea no hematemesis hemoptysis no dizziness no chest pain no palpitation. Past medical history of hyperlipidemia anxiety and gastric reflux Review of Systems Review of Systems: All systems reviewed & are unremarkable except as noted in HPI and below PMFSH Past Medical History Medical History Hypothyroidism Surgical History Surgical History H/O vascular surgery H/O: hysterectomy Hx of appendectomy Family History Family History Grandparent Hypertension Cerebrovascular accident Diabetes mellitus Mother Family history of lung cancer Family history of malignant neoplasm Father Patient's father is Social History Social History Smoking packs per day: 1 Smoking cigarettes per day: 20.0 Years smoked: 52 Smoking pack-years: 52.00 Smoking status: Current every day smoker Tobacco type: cigarettes Second hand tobacco smoke exposure: Yes Smoking end date: 05/11/20 Alcohol intake: current Substance use: never Substance use type: does not use Do You Feel Safe in your Home?: Yes Lack of Transportation: No Lack of Food: Never True Current Housing: I Have Housing Concerned About Future Housing: No Difficulty Paying Gas/Electric Bills: No Difficulty Paying for Meds: No Currently Unemployed: No Education: High School Diploma/GED Difficulty w/ Childcare or Family Care: No Spiritual care concerns: No Meds Home Medications and Allergies Home Medications Medication Instructions Recorded Confirmed Type atorvastatin 20 mg tablet 20 mg PO HS 05/31/21 07/21/23 History clonazepam 1 mg tablet 1 mg PO BID PRN Anxiety 05/31/21 07/21/23 History diclofenac sodium 75 mg 75 mg PO BID PRN Pain (Scale Score 05/31/21 07/21/23 History tablet,delayed release 4-6) fluoxetine 20 mg tablet 20 mg PO DAILY 05/31/21 07/21/23 History omeprazole 40 mg capsule,delayed 40 mg PO DAILY 05/31/21 07/21/23 History release trazodone 150 mg tablet 150 mg PO HS 05/31/21 07/21/23 History hydrocodone 5 mg-acetaminophen 325 1 tablet PO Q6H PRN pain #10 tabs 06/01/21 07/21/23 Rx mg tablet aspirin 81 mg tablet,delayed 81 mg PO QAM #30 tabs 07/28/23 Rx release clopidogrel 75 mg tablet 75 mg PO QAM #21 tabs 07/28/23 Rx Allergies Allergy/AdvReac Type Severity Reaction Status Date / Time Iodinated Contrast Media Allergy Severe DIFFICULTY Verified 06/06/23 04:00 BREATHING ampicillin Allergy Unknown Unknown Verified 06/06/23 04:00 iodine Allergy Unknown Difficulty Verified 06/06/23 04:00 Breathing Penicillins Allergy Unknown Unknown Verified 06/06/23 04:00 shellfish derived Allergy Unknown Difficulty Verified 06/06/23 04:00 Breathing Vital Signs Vital Signs - 24 hr 08/03/23 18:13 08/03/23 19:26 08/03/23 23:09 Temperature 36.4 C Pulse Rate 81 76 Respiratory Rate 20 Blood Pressure 117/55 L Pulse Oximetry 95 Oxygen Delivery Room Air Room Air 08/03/23 23:10 Temperature Pulse Rate 75 Respiratory Rate 17 Blood Pressure 122/65 Pulse Oximetry 99 Oxygen Delivery Exam Narrative: GENERAL: Well appearing, no acute distress. HEAD: Normocephalic, atraumatic. NECK: Supple. No adenopathy, no masses. RESPIRATORY: respirations nonlabored. , no rales, wheezing. CARDIOVASCULAR: Regular rate and rhythm without murmurs, . Peripheral pulses 2+ and equal bilater ally. ABDOMINAL: Soft, nontender, nondistended, no hepatosplenomegaly. Normoactive BS. MUSCULOSKELETAL: no Epigastric and no hypochondrial tenderness SKIN: Warm, dry, NEURO: A&O X3. Moves all extremities H&P: Results Labs Labs: Short CBC 08/03/23 Range/Units 19:51 WBC 9.0 (4.5-10.0) K/mm3 Hgb 14.9 (12.0-15.0) g/dL Hct 43.9 (37.0-47.0) % Plt Count 299 (150-375) k/mm3 BMP 08/03/23 19:51 Sodium 133 L Potassium 3.8 Chloride 96 L Carbon Dioxide 24 BUN < 2 L Creatinine 0.60 L Glucose 103 Calcium 9.2 Cardiac Enzymes 08/03/23 Range/Units 19:51 Total Creatine Kinase 242 H (30-135) U/L Troponin I < 0.012 (0.000-0.034) ng/mL Liver Function 08/03/23 Range/Units 19:51 Total Bilirubin 0.6 (0.2-1.3) mg/dL AST 52 H (14-36) U/L ALT 41 H (6-35) U/L Alkaline Phosphatase 94 (38-126) U/L Albumin 4.6 (3.5-5.1) g/dL Urine 08/03/23 Range/Units 19:31 Urine Color Yellow (Yellow) Urine Appearance Cloudy H (Clear) Urine pH 6.0 (5.0-9.0) Ur Specific [place] 1.005 (1.001-1.035) Urine Protein Negative (Negative) mg/dL Urine Glucose (UA) Negative (Negative) mg/dL Assessment and Plan Assessment and plan (1) Acute UTI: Code(s): N39.0 - Urinary tract infection, site not specified Status: Acute (2) Altered mental status: Code(s): R41.82 - Altered mental status, unspecified Status: Acute (3) Hypothyroidism: Code(s): E03.9 - Hypothyroidism, unspecified Status: Acute (4) Metabolic encephalopathy: Code(s): G93.41 - Metabolic encephalopathy Status: Acute (5) Hypertension: Qualifiers: Hypertension type: unspecified Qualified Code(s): I10 - Essential (primary) hypertension Code(s): I10 - Essential (primary) hypertension Status: Acute (6) Alcohol use: Code(s): Z72.89 - Other problems related to lifestyle Status: Acute Assessment and Plan: Urine cultures and sensitivity. Continue IV hydration. Rocephin Monitor CBC CMP monitor for sepsis. Monitor vital signs Start antibiotics Start probiotics to prevent antibiotic induced diarrhea Blood cultures pending Monitor for obstructive uropathy and pyelonephritis metabolic encephalopathy Stroke evaluation/treatment: previous MRI done 2 weeks ago showed acute infarct -Vitals and monitoring: - neurochecks - q4 hours x 24 hours will resume aspirin and Plavix - Continuous cardiac monitoring and telemetry Blood pressure management: history of alcohol use she has chronic differential diagnosis Wernicke's encephalopathy dehydration social service consult for placement PT/OT Eval and Treatment Gait Instability Service to Physical Therapy Service to Home Care (PT) Home exercise program Instruction in assistive device Reduction in Polypharmacy, Minimize the use of high-risk medications, and Sedatives, Diuretics, Antidepressants, Narcotics, Anti-hypertensives, and Anti-anxiety Patient is at risk. Counseled accordingly on risk reduction.as above history of hypothyroidism continue levothyroxine history of hypertension history of hyperlipidemia continue Lipitor history of alcohol use history of Macrobid deconditioning
[2023-08-04 00:45] VITALS: BMI 27.9
[2023-08-04 00:51] LABS: Hematocrit 43.6 % (37.0-47.0); Mean Corpuscular HGB Conc 34.4 g/dl (32-36); Mean Corpuscular Hemoglobin 32.1 pg (26-34); Mean Corpuscular Volume 93.4 fl (80-100); Mean Platelet Volume 9.9 fl (7.4-10.4); Platelet Count Result 276 k/mm3 (150-375); Red Blood Count 4.67 M/mm3 (4.2-5.4); Red Cell Distribution Width 12.9 % (11.5-14.5); White Blood Count 8.2 K/mm3 (4.5-10.0)
[2023-08-04 01:00] LABS: Ethanol 78 mg/dL (<10)
[2023-08-04 01:01] LABS: Lactic Acid 2.9 mmol/L (0.7-2.0)
[2023-08-04 01:02] LABS: Alanine Aminotransferase 39 U/L (6-35); Albumin Level 4.3 g/dL (3.5-5.1); Alkaline Phosphatase 88 U/L (38-126); Anion Gap 7 mmol/L (4-12); Aspartate Amino Transferase 49 U/L (14-36); Bilirubin,Total 0.7 mg/dL (0.2-1.3); Calcium 9.3 mg/dL (8.4-10.2); Carbon Dioxide 30 mmol/L (22-30); Chloride 98 mmol/L (98-107); Estimated CRCL calculation 83 ml/min; Estimated Glomerular Filt Rate > 60; Glucose 92 mg/dL (65-110); Potassium 3.8 mmol/L (3.4-5.0); Sodium 135 mmol/L (137-145)
[2023-08-04 01:13] LABS: Troponin I < 0.012 ng/mL (0.000-0.034)
[2023-08-04 01:20] VITALS: BP 141/52; PULSE 70; RESP 18; TEMP 36.4; O2SAT 98
[2023-08-04 01:23] LABS: Blood Urea Nitrogen < 2 mg/dL (7-17)
[2023-08-04] MEDS: ASPIRIN 81 MG ENTERIC TABLET PO (08:49)
[2023-08-04] MEDS: clonazePAM (*CRX) 0.5 MG TABLET PO ×2 (08:49→19:55)
[2023-08-04] MEDS: PANTOPRAZOLE 40 MG TABLET PO ×2 (08:50→17:51)
[2023-08-04] MEDS: CLOPIDOGREL BISULFATE 75 MG TABLET PO (08:50)
[2023-08-04] MEDS: FLUoxetine HCL 20 MG CAPSULE PO (08:50)
[2023-08-04] MEDS: DEXTROSE 5%/0.45% SOD CHL 1,000 ML 100 ML IV CONT ×2 (10:52→19:56)
[2023-08-04 14:00] VITALS: BP 151/80; PULSE 90; RESP 18; TEMP 36.4; O2SAT 100
--- NOTE | 2023-08-04 18:03 | P.PNIM_ITS ---
Progress Note: A&P Assessment and Plan (1) Acute UTI: Code(s): N39.0 - Urinary tract infection, site not specified Status: Acute (2) Altered mental status: Code(s): R41.82 - Altered mental status, unspecified Status: Acute (3) Hypothyroidism: Code(s): E03.9 - Hypothyroidism, unspecified Status: Acute (4) Metabolic encephalopathy: Code(s): G93.41 - Metabolic encephalopathy Status: Acute (5) Hypertension: Qualifiers: Hypertension type: unspecified Qualified Code(s): I10 - Essential (primary) hypertension Code(s): I10 - Essential (primary) hypertension Status: Acute (6) Alcohol use: Code(s): Z72.89 - Other problems related to lifestyle Status: Acute Assessment and Plan: Acute and principal conditions 1. Acute metabolic encephalopathy 2. UTI 3. Physical deconditioning; Gait instability 4. Recent CVA Rx: Ceftriaxone PT/OT eval and Rx Will resume aspirin and Plavix Chronic and stable conditions Hypothyroidism continue levothyroxine Hypertension Dyslipidemia continue Lipitor History of alcohol use Time Spent With Patient Time with patient: 25 - 35 minutes Subjective Date/time seen: 08/04/23 18:03 Interval history: 08/04/23: Seen and examined; being managed for acute encephalopathy, UTI, recent CVA; she denies fresh concerns Review of Systems Review of Systems: All systems reviewed & are unremarkable except as noted in HPI and below Exam Narrative: GENERAL: Well appearing, no acute distress. HEAD: Normocephalic, atraumatic. NECK: Supple. No adenopathy, no masses. RESPIRATORY: respirations nonlabored. , no rales, wheezing. CARDIOVASCULAR: Regular rate and rhythm without murmurs, . Peripheral pulses 2+ and equal bilater ally. ABDOMINAL: Soft, nontender, nondistended, no hepatosplenomegaly. Normoactive BS. MUSCULOSKELETAL: no Epigastric and no hypochondrial tenderness SKIN: Warm, dry, NEURO: A&O X3. Moves all extremities Objective Data Vital Signs Vital Signs: Vital Signs - 24 hr 08/03/23 18:13 08/03/23 19:26 08/03/23 23:09 Temperature 97.6 F Pulse Rate 81 76 Respiratory Rate 20 Blood Pressure 117/55 L Pulse Oximetry 95 Oxygen Delivery Room Air Room Air 08/03/23 23:10 08/04/23 01:20 08/04/23 08:50 Temperature 97.5 F L Pulse Rate 75 70 Respiratory Rate 17 18 Blood Pressure 122/65 141/52 H Pulse Oximetry 99 98 Oxygen Delivery Room Air 08/04/23 14:00 Temperature 97.5 F L Pulse Rate 90 Respiratory Rate 18 Blood Pressure 151/80 H Pulse Oximetry 100 Oxygen Delivery Intake/Output Intake/Output: Intake & Output 08/01/23 08/02/23 08/03/23 08/04/23 23:59 23:59 23:59 23:59 Intake Total 890 Balance 890 Meds/Results Medications: Active Medications Generic Name Dose Route Start Last Admin Trade Name Freq PRN Reason Stop Dose Admin Aspirin 81 mg 08/04/23 09:00 08/04/23 08:49 Aspirin 81 Mg Enteric Tablet PO 81 mg QAM DIONNE Administration Atorvastatin Calcium 20 mg 08/04/23 21:00 Atorvastatin 20 Mg Tablet PO HS DIONNE Clonazepam 0.5 mg 08/04/23 08:10 08/04/23 08:49 Clonazepam (*Crx) 0.5 Mg Tablet PO 0.5 mg BID PRN Administration Anxiety Clopidogrel Bisulfate 75 mg 08/04/23 09:00 08/04/23 08:50 Clopidogrel Bisulfate 75 Mg Tablet PO 75 mg QAM DIONNE Administration Enoxaparin Sodium 40 mg 08/04/23 09:00 08/04/23 08:50 Enoxaparin 40 Mg/0.4 Ml Syringe SUB-Q Not Given DAILY DIONNE Fluoxetine HCl 20 mg 08/04/23 09:00 08/04/23 08:50 Fluoxetine Hcl 20 Mg Capsule PO 20 mg DAILY DIONNE Administration Ceftriaxone Sodium 1 gm in 50 mls @ 100 mls/hr 08/04/23 09:00 08/04/23 11:39 Rocephin 1 Gm/Ns 50 Ml IVPB Infused Q24H DIONNE Infusion Dextrose/Sodium Chloride 1,000 mls @ 100 mls/hr 08/04/23 00:30 08/04/23 10:52 Dextrose 5% Sodium Chloride 0.45% IV CONT 100 mls/hr .Q10H DIONNE Administration Miscellaneous Information 0 each 08/04/23 00:01 Ceftriaxone Pt Refusing Doses XX 09/03/23 00:00 CLARIFY DIONNE Pantoprazole Sodium 40 mg 08/04/23 09:00 08/04/23 17:51 Pantoprazole 40 Mg Tablet PO 40 mg BID [facility] Administration Trazodone HCl 150 mg 08/04/23 21:00 Trazodone Hcl 50 Mg Tablet PO [facility] Radiology Results: ITS Impressions Head CT 08/03/23 20:21 IMPRESSION: 1. Interval evolution of the previously acute small infarct in the right temporal parietal occipital region. No acute intracranial process. 2. Additional small old lacunar infarcts in the right basal ganglia and right frontal lobe periventricular white matter. 3. Age-related changes including mild diffuse volume loss and mild scattered whi te matter hypoattenuation consistent with chronic small vessel ischemic disease. Chest X-Ray 08/03/23 20:28 IMPRESSION: 1. No acute cardiopulmonary disease. Labs Labs: Laboratory Results - last 24 hr 08/03/23 08/03/23 08/04/23 19:31 19:51 00:46 WBC 9.0 8.2 RBC 4.65 4.67 Hgb 14.9 15.0 Hct 43.9 43.6 MCV 94.4 93.4 MCH 32.0 32.1 MCHC 33.9 34.4 RDW 12.7 12.9 Plt Count 299 276 MPV 10.2 9.9 Immature Gran % (Auto) 0.6 H Neut % (Auto) 58.7 Lymph % (Auto) 30.0 [place] % (Auto) 6.3 Eos % (Auto) 3.7 Baso % (Auto) 0.7 Lymph # (Auto) 2.71 [place] # (Auto) 0.6 Eos # (Auto) 0.3 Baso # (Auto) 0.1 Abs Immat Gran (auto) 0.05 H Absolute Neuts (auto) 5.3 Absolute Nucleated RBC 0.000 Nucleated RBC % 0.0 PT 15.0 H INR 1.1 APTT 30.9 Sodium 133 L 135 L Potassium 3.8 3.8 Chloride 96 L 98 Carbon Dioxide 24 30 Anion Gap 13 H 7 BUN < 2 L < 2 L Creatinine 0.60 L 0.50 L Estim Creat Clear Calc 73 83 Estimated GFR > 60 > 60 Glucose 103 92 Lactic Acid 3.6 H 2.9 H Calcium 9.2 9.3 Phosphorus 3.0 Magnesium 1.7 Total Bilirubin 0.6 0.7 AST 52 H 49 H ALT 41 H 39 H Alkaline Phosphatase 94 88 Total Creatine Kinase 242 H Troponin I < 0.012 < 0.012 Total Protein 8.0 8.0 Albumin 4.6 4.3 Lipase 73 TSH (Reflex) 1.070 Urine Color Yellow Urine Appearance Cloudy H Urine pH 6.0 Ur Specific [place] 1.005 Urine Protein Negative Urine Glucose (UA) Negative Urine Ketones Negative Ur Blood (Man) 1+ H Urine Nitrate Positive H Urine Bilirubin Negative Urine Urobilinogen 0.2 Leukocyte Esterase Rfl 3+ H Urine RBC 0-2 Urine WBC >100 H Ur Squamous Epith Cells Few Urine Bacteria 4+ H Urine Casts 0-2 Urine Opiates Screen Negative Urine Methadone Screen Negative Ur Barbiturates Screen Negative Ur Phencyclidine Scrn Negative Ur Amphetamine Screen Negative U Benzodiazepines Scrn Negative Urine Cocaine Screen Negative U Cannabinoids Screen Negative Ethyl Alcohol 187 78 Influenza A (RT-PCR) Negative Influenza B (RT-PCR) Negative RSV (RT-PCR) Negative SARS-CoV-2 RNA (RT-PCR) Negative
[2023-08-04] MEDS: traZODone HCL 50 MG TABLET 150 MG PO (19:55)
[2023-08-04] MEDS: ATORVASTATIN 20 MG TABLET PO (19:55)
[2023-08-04 23:44] VITALS: BP 174/66; PULSE 83; RESP 12; TEMP 36.4; O2SAT 99
[2023-08-05 06:50] LABS: Basophils Absolute Auto 0.1 K/mm3 (0.0-0.1); Basophils Percent Auto 0.8 % (0.2-1.2); Eosinophils Absolute Auto 0.2 K/mm3 (0-0.3); Eosinophils Percent Auto 3.5 % (0-4.4); Hematocrit 42.3 % (37.0-47.0); Hemoglobin 13.8 g/dL (12.0-15.0); Immature Granulocyte Absolute 0.03 K/mm3 (0.00-0.031); Immature Granulocyte Percent A 0.5 % (0-0.5); Lymphocytes Absolute Auto 0.84 K/mm3 (0.9-3.2); Lymphocytes Percent Auto 12.6 % (18.3-44.2); Mean Corpuscular HGB Conc 32.6 g/dl (32-36); Mean Corpuscular Hemoglobin 31.5 pg (26-34); Mean Corpuscular Volume 96.6 fl (80-100); Monocytes Absolute Auto 0.7 K/mm3 (0.1-0.6); Monocytes Percent Auto 10.8 % (2.6-8.5); Neutrophils Absolute Auto 4.8 K/mm3 (1.3-6.7); Neutrophils Percent Auto 71.8 % (45.5-73.1); Platelet Count Result 234 k/mm3 (150-375); Red Blood Count 4.38 M/mm3 (4.2-5.4); White Blood Count 6.7 K/mm3 (4.5-10.0)
[2023-08-05 07:02] LABS: Alanine Aminotransferase 29 U/L (6-35); Albumin Level 3.8 g/dL (3.5-5.1); Alkaline Phosphatase 82 U/L (38-126); Anion Gap 6 mmol/L (4-12); Aspartate Amino Transferase 30 U/L (14-36); Bilirubin,Total 0.9 mg/dL (0.2-1.3); Blood Urea Nitrogen 2 mg/dL (7-17); Calcium 9.1 mg/dL (8.4-10.2); Carbon Dioxide 28 mmol/L (22-30); Chloride 102 mmol/L (98-107); Estimated CRCL calculation 70 ml/min; Estimated Glomerular Filt Rate > 60; Glucose 100 mg/dL (65-110); Sodium 136 mmol/L (137-145)
[2023-08-05] MEDS: CLOPIDOGREL BISULFATE 75 MG TABLET PO (08:13)
[2023-08-05] MEDS: PANTOPRAZOLE 40 MG TABLET PO ×2 (08:13→16:15)
[2023-08-05] MEDS: FLUoxetine HCL 20 MG CAPSULE PO (08:13)
[2023-08-05] MEDS: ASPIRIN 81 MG ENTERIC TABLET PO (08:13)
[2023-08-05 10:20] VITALS: O2SAT 92
--- NOTE | 2023-08-05 12:56 | PC.NURSE ---
Patient's brother, Chiki Lackey ([phone]) called the floor requesting updates on the patient. Patient is alert and oriented times four, she does not wish information to be given out to family members at this time regarding her care. This nurse verified that with patient at bedside today 08/05/2023. Patient's brother not updated on plan of care per patient's request.
[2023-08-05 14:00] VITALS: BP 137/50; PULSE 72; RESP 13; TEMP 36.5; O2SAT 100
--- NOTE | 2023-08-05 15:02 | P.PNIM_ITS ---
Progress Note: A&P Assessment and Plan (1) Acute UTI: Code(s): N39.0 - Urinary tract infection, site not specified Status: Acute (2) Altered mental status: Code(s): R41.82 - Altered mental status, unspecified Status: Acute (3) Hypothyroidism: Code(s): E03.9 - Hypothyroidism, unspecified Status: Acute (4) Metabolic encephalopathy: Code(s): G93.41 - Metabolic encephalopathy Status: Acute (5) Hypertension: Qualifiers: Hypertension type: unspecified Qualified Code(s): I10 - Essential (primary) hypertension Code(s): I10 - Essential (primary) hypertension Status: Acute (6) Alcohol use: Code(s): Z72.89 - Other problems related to lifestyle Status: Acute Assessment and Plan: Acute and principal conditions 1. Acute metabolic encephalopathy 2. UTI 3. Physical deconditioning; Gait instability 4. Recent CVA Rx: Urine culture shows resistance to 1st 2nd and 3rd generation cephalosporins DC IV Rocephin Patient started on ciprofloxacin 4 mg IV Bid PT/OT eval and Rx Continue with aspirin and Plavix Chronic and stable conditions Hypothyroidism continue levothyroxine Hypertension Dyslipidemia continue Lipitor History of alcohol use Patient has potential of self neglect and APS is involved will follow-up with her as an outpatient at home. ? Patient seen and examined at bedside during my morning rounds ? Collaborated with patient's nurse at the bedside in detail and addressed all concerns ? Labs, electrolytes, radiology, investigations and test results reviewed ? Consult/Nursing/Ancilliary notes on the chart reviewed and appreciated ? Spoke with patient/family at the bedside and answered all the questions that they had Repeat labs in a.m. Electrolyte replacement as per protocol. Patient will be monitored very closely on the floor. Further recommendations as per the hospital course. Time Spent With Patient Time with patient: 15 - 25 minutes Subjective Date/time seen: 08/05/23 15:02 Interval history: 08/04/23: Seen and examined; being managed for acute encephalopathy, UTI, recent CVA; she denies fresh concerns 08/05/2023: Patient seen and evaluated at bedside. Encouraged patient to continue to receive IV antibiotics and fluids. Likely DC in a.m. if she is stable. Review of Systems Review of Systems: 14 systems were reviewed with pertinent positives and negatives per HPI. Except as documented in the HPI/progress notes, all other systems were reviewed and are negative. All systems reviewed & are unremarkable except as noted in HPI and below Exam Narrative: GENERAL: Patient lying in bed, pleasant and cooperative with exam, she wants to go home HEAD: Normocephalic, atraumatic. NECK: Supple. No adenopathy, no masses. RESPIRATORY: respirations nonlabored. , no rales, wheezing. CARDIOVASCULAR: Regular rate and rhythm without murmurs, PERIPHERAL PULSES: 2+ and equal bilaterally. ABDOMINAL: Soft, nontender, nondistended, no hepatosplenomegaly. Normoactive BS. MUSCULOSKELETAL: no Epigastric and no hypochondrial tenderness SKIN: Warm, dry, NEURO: A&O X3. Moves all extremities Objective Data Vital Signs Vital Signs: Vital Signs - 24 hr 08/04/23 23:44 08/05/23 08:00 08/05/23 10:20 Temperature 36.4 C Pulse Rate 83 Respiratory Rate 12 Blood Pressure 174/66 H Pulse Oximetry 99 92 Oxygen Delivery Room Air Room Air Intake/Output Intake/Output: Intake & Output 08/02/23 08/03/23 08/04/23 08/05/23 23:59 23:59 23:59 23:59 Intake Total 1796.7 1590 Balance 1796.7 1590 Meds/Results Medications: Active Medications Generic Name Dose Route Start Last Admin Trade Name Freq PRN Reason Stop Dose Admin Aspirin 81 mg 08/04/23 09:00 08/05/23 08:13 Aspirin 81 Mg Enteric Tablet PO 81 mg QAM DIONNE Administration Atorvastatin Calcium 20 mg 08/04/23 21:00 08/04/23 19:55 Atorvastatin 20 Mg Tablet PO 20 mg HS DIONNE Administration Clonazepam 0.5 mg 08/04/23 08:10 08/04/23 19:55 Clonazepam (*Crx) 0.5 Mg Tablet PO 0.5 mg BID PRN Administration Anxiety Clopidogrel Bisulfate 75 mg 08/04/23 09:00 08/05/23 08:13 Clopidogrel Bisulfate 75 Mg Tablet PO 75 mg QAM DIONNE Administration Enoxaparin Sodium 40 mg 08/04/23 09:00 08/05/23 08:06 Enoxaparin 40 Mg/0.4 Ml Syringe SUB-Q Not Given DAILY DIONNE Fluoxetine HCl 20 mg 08/04/23 09:00 08/05/23 08:13 Fluoxetine Hcl 20 Mg Capsule PO 20 mg DAILY DIONNE Administration Ceftriaxone Sodium 1 gm in 50 mls @ 100 mls/hr 08/04/23 09:00 08/05/23 08:42 Rocephin 1 Gm/Ns 50 Ml IVPB Infused Q24H DIONNE Infusion Dextrose/Sodium Chloride 1,000 mls @ 100 mls/hr 08/04/23 00:30 08/04/23 19:56 Dextrose 5% Sodium Chloride 0.45% IV CONT 100 mls/hr .Q10H DIONNE Administration Pantoprazole Sodium 40 mg 08/04/23 09:00 08/05/23 08:13 Pantoprazole 40 Mg Tablet PO 40 mg BID DIONNE Administration Trazodone HCl 150 mg 08/04/23 21:00 08/04/23 19:55 Trazodone Hcl 50 Mg Tablet PO 150 mg HS DIONNE Administration Radiology Results: ITS Impressions Head CT 08/03/23 20:21 IMPRESSION: 1. Interval evolution of the previously acute small infarct in the right temporal parietal occipital region. No acute intracranial process. 2. Additional small old lacunar infarcts in the right basal ganglia and right frontal lobe periventricular white matter. 3. Age-related changes including mild diffuse volume loss and mild scattered white matter hypoattenuation consistent with chronic small vessel ischemic disease. Chest X-Ray 08/03/23 20:28 IMPRESSION: 1. No acute cardiopulmonary disease. Labs Labs: Laboratory Results - last 24 hr 08/05/23 06:29 WBC 6.7 RBC 4.38 Hgb 13.8 Hct 42.3 MCV 96.6 MCH 31.5 MCHC 32.6 RDW 13.0 Plt Count 234 MPV 10.0 Immature Gran % (Auto) 0.5 Neut % (Auto) 71.8 Lymph % (Auto) 12.6 L [place] % (Auto) 10.8 H Eos % (Auto) 3.5 Baso % (Auto) 0.8 Lymph # (Auto) 0.84 L [place] # (Auto) 0.7 H Eos # (Auto) 0.2 Baso # (Auto) 0.1 Abs Immat Gran (auto) 0.03 Absolute Neuts (auto) 4.8 Absolute Nucleated RBC 0.000 Nucleated RBC % 0.0 Sodium 136 L Potassium 4.0 Chloride 102 Carbon Dioxide 28 Anion Gap 6 BUN 2 L Creatinine 0.60 L Estim Creat Clear Calc 70 Estimated GFR > 60 Glucose 100 Calcium 9.1 Total Bilirubin 0.9 AST 30 ALT 29 Alkaline Phosphatase 82 Total Protein 7.0 Albumin 3.8 Quality VTE Prophylaxis VTE prophylaxis: mechanical ordered and pharmacologic ordered
[2023-08-05] MEDS: clonazePAM (*CRX) 0.5 MG TABLET PO ×2 (16:15→20:26)
[2023-08-05] MEDS: CIPROFLOXACIN 400 MG/D5W 200ML 200 ML 200 MG IVPB (16:15)
[2023-08-05] MEDS: diphenhydrAMINE HCl CAP 25 MG CAPSULE 50 MG PO (16:34)
[2023-08-05] MEDS: levoFLOXacin 250 MG/D5W 50 ML 250 MG/50 ML BAG 25 MG IVPB (17:53)
[2023-08-05] MEDS: ATORVASTATIN 20 MG TABLET PO (20:26)
[2023-08-05] MEDS: traZODone HCL 50 MG TABLET 150 MG PO (20:26)
[2023-08-05 21:35] VITALS: BP 158/57; PULSE 82; RESP 14; TEMP 36.6; O2SAT 98
[2023-08-06 05:42] VITALS: BP 118/48; PULSE 84; RESP 13; TEMP 36.7; O2SAT 96
[2023-08-06 06:26] LABS: Basophils Absolute Auto 0.1 K/mm3 (0.0-0.1); Basophils Percent Auto 0.8 % (0.2-1.2); Eosinophils Absolute Auto 0.2 K/mm3 (0-0.3); Eosinophils Percent Auto 3.2 % (0-4.4); Hematocrit 38.9 % (37.0-47.0); Hemoglobin 12.7 g/dL (12.0-15.0); Immature Granulocyte Absolute 0.04 K/mm3 (0.00-0.031); Immature Granulocyte Percent A 0.6 % (0-0.5); Lymphocytes Absolute Auto 1.46 K/mm3 (0.9-3.2); Lymphocytes Percent Auto 20.2 % (18.3-44.2); Mean Corpuscular HGB Conc 32.6 g/dl (32-36); Mean Corpuscular Hemoglobin 31.9 pg (26-34); Mean Corpuscular Volume 97.7 fl (80-100); Mean Platelet Volume 10.4 fl (7.4-10.4); Monocytes Absolute Auto 0.7 K/mm3 (0.1-0.6); Monocytes Percent Auto 9.9 % (2.6-8.5); Neutrophils Absolute Auto 4.7 K/mm3 (1.3-6.7); Neutrophils Percent Auto 65.3 % (45.5-73.1); Platelet Count Result 222 k/mm3 (150-375); Red Blood Count 3.98 M/mm3 (4.2-5.4); White Blood Count 7.2 K/mm3 (4.5-10.0)
[2023-08-06 06:29] LABS: Alanine Aminotransferase 28 U/L (6-35); Albumin Level 3.5 g/dL (3.5-5.1); Alkaline Phosphatase 87 U/L (38-126); Anion Gap 6 mmol/L (4-12); Aspartate Amino Transferase 33 U/L (14-36); Bilirubin,Total 0.5 mg/dL (0.2-1.3); Blood Urea Nitrogen 6 mg/dL (7-17); Calcium 8.7 mg/dL (8.4-10.2); Carbon Dioxide 28 mmol/L (22-30); Chloride 103 mmol/L (98-107); Estimated CRCL calculation 70 ml/min; Estimated Glomerular Filt Rate > 60; Glucose 98 mg/dL (65-110); Magnesium 1.4 mg/dL (1.6-2.3); Phosphorus 3.5 mg/dL (2.5-4.5); Potassium 3.7 mmol/L (3.4-5.0); Sodium 137 mmol/L (137-145)
[2023-08-06] MEDS: ASPIRIN 81 MG ENTERIC TABLET PO (08:09)
[2023-08-06] MEDS: PANTOPRAZOLE 40 MG TABLET PO (08:09)
[2023-08-06] MEDS: CLOPIDOGREL BISULFATE 75 MG TABLET PO (08:09)
[2023-08-06] MEDS: FLUoxetine HCL 20 MG CAPSULE PO (08:09)
[2023-08-06] MEDS: levoFLOXacin 500 MG/D5W 100 ML 500 MG/100 ML BAG 50 MG IVPB (08:09)
[2023-08-06] MEDS: clonazePAM (*CRX) 0.5 MG TABLET PO (08:09)
[2023-08-06] MEDS: levoFLOXacin 500 MG TABLET PO (11:08)
--- NOTE | 2023-08-06 13:05 | P.DS_ITS ---
DS: Admitting Diagnosis Discharge Date 08/06/2023: Admitting Diagnosis (1) Acute UTI: ?Code(s): N39.0 - Urinary tract infection, site not specified ?Status:?Acute (2) Altered mental status: ?Code(s): R41.82 - Altered mental status, unspecified ?Status:?Acute (3) Hypothyroidism: ?Code(s): E03.9 - Hypothyroidism, unspecified ?Status:?Acute (4) Metabolic encephalopathy: ?Code(s): G93.41 - Metabolic encephalopathy ?Status:?Acute (5) Hypertension: ?Qualifiers: ?Hypertension type:?unspecified? Qualified Code(s):?I10 - Essential (primary) hypertension ?Code(s): I10 - Essential (primary) hypertension ?Status:?Acute (6) Alcohol use: ?Code(s): Z72.89 - Other problems related to lifestyle DS: Discharge Diagnosis Discharge Diagnosis (1) Acute UTI: Code(s): N39.0 - Urinary tract infection, site not specified Status: Acute (2) Hypothyroidism: Code(s): E03.9 - Hypothyroidism, unspecified Status: Acute (3) Metabolic encephalopathy: Code(s): G93.41 - Metabolic encephalopathy Status: Acute (4) Hypertension: Qualifiers: Hypertension type: unspecified Qualified Code(s): I10 - Essential (primary) hypertension Code(s): I10 - Essential (primary) hypertension Status: Acute (5) Alcohol use: Code(s): Z72.89 - Other problems related to lifestyle Status: Acute (6) Muscular deconditioning: Code(s): R29.898 - Other symptoms and signs involving the musculoskeletal system Status: Acute (7) Fall: Qualifiers: Encounter type: initial encounter Qualified Code(s): W19.XXXA - Unspecified fall, initial encounter Code(s): W19.XXXA - Unspecified fall, initial encounter Status: Acute (8) H/O vascular surgery: Code(s): Z98.890 - Other specified postprocedural states Status: Acute (9) Self neglect: Code(s): R46.89 - Other symptoms and signs involving appearance and behavior Status: Acute DS: Summary Hospital Course Reason for hospitalization: Patient admitted with confusion due to recurrent UTI. Hospital Course: H&P: HPI History of Present Illness Date/Time: 08/04/23? 00:20 Chief Complaint: ?confusion Narrative: ?patient is 72-year-old female presented to the emergency room with altered mental status.? Patient seems much more confused when she arrived at the emergency room patient was history of urine tract infection also history of alcohol use in patient deny fever chills nausea vomiting diarrhea no hematemesis hemoptysis no dizziness no chest pain no palpitation.? Past medical history of hyperlipidemia anxiety and gastric reflux 08/04/2023: Seen and examined; being managed for acute encephalopathy, UTI, recent CVA; she denies fresh concerns 08/05/2023: Patient seen and evaluated at bedside.? Encouraged patient to continue to receive IV antibiotics and fluids.? Likely DC in a.m. if she is stable. Patient reported allergies to IV ciprofloxacin as she reported itching and redness at the injection site.? I asked nurse to stop IV ciprofloxacin and give Benadryl 50 mg p.o. x1 dose.? There is 20% cross-reactivity between ciprofloxacin and Levaquin and because of her multiple allergies, it is prudent to attempt low dose Levaquin for the patient.? I ordered Levaquin 250 mg IV x1 dose in another IV site closely if she has reaction to Levaquin as well, will discharging on oral Omnicef. 08/06/2023: Patient seen and evaluated at bedside today. He has tolerated IV Levaquin yesterday and a portion this morning. Her IV line got infiltrated and she did not wanted to insert another IV line hence Levaquin 500 mg oral x1 dose given. She did have allergic reaction to ciprofloxacin but no allergic reaction to Levaquin. Given the recurrence of her UTI and the fact that she got admitted even after given the course of the Omnicef upon discharge last week, I will discharge her on 10 days of oral Levaquin to be taken at home. She also had borderline low magnesium level at 1.4. I ordered IV management sulfate replacement which could not be done because of her IV line infiltration. I would discharge her on magnesium oxide 400 mg p.o. b.i.d. for 2 weeks. I would request PCP to follow up on patient's labs, renal functions and electrolytes closely as an outpatient and adjust medications accordingly. Strictly advised patient refrain from alcohol use. She is an established self neglect case and being followed by APS as an outpatient. Patient is stable from medical standpoint to be discharged home with home he alth. Detailed discharge directions delivered to the patient by myself and my nursing staff, who verbalizes understanding and is very happy and satisfied with the plan. Patient has been advised to continue all medications as prescribed and advised, and f/u with PCP within 1 week. Total time spent during patient evaluation and assessment, discussion with the nurse/family, addressing discharge medications/scripts and coordination of care for safe discharge was 37 minutes. Status at Discharge Functional status at discharge: independent ambulation Overall status at discharge: patient is progressing back to baseline Time Spent with Patient Time attestation: Total time spent providing and/or coordinating discharge services: Time spent: Greater than 30 minutes Exam Narrative: GENERAL:? Patient lying in bed, pleasant and cooperative with exam, she wants to go home HEAD: Normocephalic, atraumatic. NECK: Supple. No adenopathy, no masses. RESPIRATORY: respirations nonlabored. , no rales,? wheezing. CARDIOVASCULAR: Regular rate and rhythm without murmurs, PERIPHERAL PULSES: 2+ and equal bilaterally. ABDOMINAL: Soft, nontender, nondistended, no hepatosplenomegaly. Normoactive BS. MUSCULOSKELETAL:? no Epigastric and no hypochondrial tenderness SKIN: Warm, dry, NEURO: A&O X3.? Moves all extremities DS: Data Data Completed and Pending Labs on day of discharge: Labs from last 24 hours 08/06/23 05:52 WBC 7.2 RBC 3.98 L Hgb 12.7 Hct 38.9 MCV 97.7 MCH 31.9 MCHC 32.6 RDW 13.0 Plt Count 222 MPV 10.4 Immature Gran % (Auto) 0.6 H Neut % (Auto) 65.3 Lymph % (Auto) 20.2 [place] % (Auto) 9.9 H Eos % (Auto) 3.2 Baso % (Auto) 0.8 Lymph # (Auto) 1.46 [place] # (Auto) 0.7 H Eos # (Auto) 0.2 Baso # (Auto) 0.1 Abs Immat Gran (auto) 0.04 H Absolute Neuts (auto) 4.7 Absolute Nucleated RBC 0.000 Nucleated RBC % 0.0 Sodium 137 Potassium 3.7 Chloride 103 Carbon Dioxide 28 Anion Gap 6 BUN 6 L Creatinine 0.60 L Estim Creat Clear Calc 70 Estimated GFR > 60 Glucose 98 Calcium 8.7 Phosphorus 3.5 Magnesium 1.4 L Total Bilirubin 0.5 AST 33 ALT 28 Alkaline Phosphatase 87 Total Protein 7.0 Albumin 3.5 Preliminary micro results at discharge 08/03/23 19:51 Blood Culture - Preliminary Blood 08/03/23 20:31 Blood Culture - Preliminary Blood Discharge Plan Discharge Attending physician on discharge: Grabiel Taylor Discharging Clinician: Grabiel Taylor Anticipated Discharge Date/Time: 08/06/23 13:18 Patient Disposition: Home Health Service Activity: as tolerated Diet: heart healthy Discharge Instructions: * Per Care Coordination: [facility] will contact you prior to their first visit. [facility] will follow for RN and PT/OT eval and treat. * Please follow up with Jesus Mirza for alcohol recovery and treatment services, he can be contacted directly at [phone] * Advised patient to follow up closely with PCP as an outpatient within 1 week * I would request PCP to follow up on patient's labs, renal functions and electrolytes closely as an outpatient and adjust medications accordingly * Patient being followed up as an outpatient by APS for self neglect Patient Instructions: Antibiotic Form Stand Alone Forms: General Discharge Information Follow-up/Referrals: Grabiel Taylor MD [Physician] - UNKNOWN,DOCTOR [Primary Care Provider] - 1 Week (Advised patient to follow up closely with PCP as an outpatient within 1 week) Discharge Medications: New levofloxacin 500 mg tablet 500 mg PO DAILY 10 Days Qty: 10 0RF magnesium oxide 400 mg magnesium tablet 400 mg PO BID Qty: 30 0RF Continued clonazepam 1 mg tablet 1 mg PO BID PRN (Reason: Anxiety) fluoxetine 20 mg Tablet 20 mg PO DAILY atorvastatin 20 mg Tablet 20 mg PO HS omeprazole 40 mg Capsule,Delayed Release(Dr/Ec) 40 mg PO DAILY trazodone 150 mg Tablet 150 mg PO HS clopidogrel 75 mg Tablet 75 mg PO QAM Qty: 21 0RF aspirin 81 mg Tablet,Delayed Release (Dr/Ec) 81 mg PO QAM Qty: 30 0RF Date of admission: 08/05/23 16:44 Primary Care Provider: UNKNOWN,DOCTOR Admitting Provider: Edson Gibbons Attending physician on admission: Grabiel Taylor Condition: Stable
[2023-08-06] MEDS: MAGNESIUM OXIDE 400 MG TABLET PO (13:42)
== END 2023-08-06 14:15 | disposition home health service (06) | DRG 690 ==
LOC: ANHED 23:26 → ANH3MEDSUR 08-04 00:23
PROVIDERS: Internal Medicine; Admitting Provider Internal Medicine; Emergency Provider Emergency Medicine; Visit Provider Family Medicine
DX: N39.0 Urinary tract infection, site not specified (principal); Z16.39 Resistance to other specified antimicrobial drug; T36.8X5A Adverse effect of other systemic antibiotics, initial encounter; B96.89 Other specified bacterial agents as the cause of diseases classified elsewhere; L29.9 Pruritus, unspecified; F10.90 Alcohol use, unspecified, uncomplicated; E78.5 Hyperlipidemia, unspecified; E03.9 Hypothyroidism, unspecified; F41.9 Anxiety disorder, unspecified; F17.210 Nicotine dependence, cigarettes, uncomplicated; I10 Essential (primary) hypertension; K21.9 Gastro-esophageal reflux disease without esophagitis; Z86.73 Personal history of transient ischemic attack (TIA), and cerebral infarction without residual deficits; Z88.1 Allergy status to other antibiotic agents; Z88.0 Allergy status to penicillin; Z90.49 Acquired absence of other specified parts of digestive tract; Z90.710 Acquired absence of both cervix and uterus; Z79.82 Long term (current) use of aspirin; Z79.02 Long term (current) use of antithrombotics/antiplatelets
CPT/HCPCS: 36415; 70450; 71045; 80053; 80307; 81001; 82550; 83605; 83690; 83735; 84100; 84443; 84484; 85025; 85027; 85610; 85730; 87040; 87077; 87086; 87088; 87186; 87637; 93005; 97161; 99285; A9270; G0378; J0696; J0744; J1956

== ENCOUNTER 2024-04-08 14:01 | Outpatient (CLI) | payer MEDICARE, SELFPAY ==
--- NOTE | ~2024-04-08 | US_ITS ---
EXAMINATION: US venous doppler [facility] DATE: 04/08/2024 14:48 INDICATION: Swelling left lower extremity TECHNIQUE: Grayscale ultrasound images without and with compression and Doppler ultrasound images of the left lower extremity veins were obtained. COMPARISON: None. FINDINGS: The visualized portions of left common femoral vein, profunda (deep) femoral vein, femoral vein, popl iteal vein, peroneal veins, posterior tibial veins, and greater saphenous vein outflow are patent. IMPRESSION: 1. No deep venous thrombosis within the left lower extremity. Reviewed, dictated and finalized at location A. DER OPERATOR
--- OUTSIDE RECORDS SUMMARY | 2024-04-08 14:47 | XMS_ITS ---
Author Organization [facility] Address [address] [place] [phone] Care Team Providers Care Classics Teacher Name Role Phone Reymundo Gonzalez Unavailable [phone] REASON FOR VISIT [facility], interested in peptide therapy, Desired weight loss: lbs, No history MTC or MEN2 or pancreatitis, Concerned about future DM and OA Encounters Encounter Location Date Provider Diagnosis [facility] [place] ([address]) 2022 TREY ISAAC [place]A [address] [place] [phone] 05/23/2023 Reymundo Gonzalez Morbid (severe) obesity due to excess calories E66.01 ; Chronic fatigue, unspecified R53.82 ; Other fatigue R53.83 and Other malaise R53.81 Assessments Encounter Date Diagnosis (ICD Code) Assessment Notes Treatment Notes Treatment Clinical Notes Section Notes 05/23/2023 Morbid (severe) obesity due to excess calories (ICD-10 - E66.01) 05/23/2023 Chronic fatigue, unspecified (ICD-10 - R53.82) 05/23/2023 Other fatigue (ICD-10 - R53.83) 05/23/2023 Other malaise (ICD-10 - R53.81) Plan Of Treatment Next Appt Details Follow Up: 1 Week, Reason: G LP-1 Agonist Administration Progress Notes * Kaelyn ACEVEDOOB:1950 ( 73 yo F)Acc No.[id number]:05/23/2023 TRANSITION MANAGER Weight Loss Patient:?Marliy ACEVEDO Provider:?Reymundo Gonzalez MD :1950???Age:72 Y???Sex:Female D ate:05/23/2023 Address:[address] [place] [address] Subjective: * Chief Complaints: * ???1. [facility], interested in peptide therapy. 2. Desired weight loss: lbs. 3. No history MTC or MEN2 or pancreatitis. 4. Concerned about future DM and OA. * HPI: ???*[facility] A[facility]:? The risks, benefits & alternatives were discussed regarding available treatment options. A treatment path was determined after reviewing the patients medical records, our verbal discussions and via joint decision-making Consents for our planned treatments were signed and are on file. * Medical History:? Objective: * Vitals:? Assessment: * Assessment: 1.?Morbid (severe) obesity d ue to excess calories - E66.01 (Primary)???2.?Chronic fatigue, unspecified - R53.82???3.?Other fatigue - R53.83???4.?Other malaise - R53.81??? Plan: * Treatment: * Follow Up:?1 Week (Reason: G LP-1 Agonist Administration) * Billing Information: * Visit Code:? * Procedure Codes:? 26625 [facility] Initial Consultation (tirzepatide). 29820 [facility] Initial Consultation (semaglutide). 47894 [facility] - 2 months Prepay (tirzepatide) Tier 1 (0.5-5 mg). 08435 [facility] - 2 months Prepay (semaglutide) Tier 1 (0.125-0.875 mg). * Electronic signature of Can Gonzalez MD, FAAAAI on 04/08/2024 at 02:46 PM SAW REPAIRER Sign off status: Pending * Provider:?Reymundo Gonzalez MD Date:?05/22 Generated for Printi ng/Kennedy/eTransmitting on:?04/08/2024 02:46 PM SAW REPAIRER History and Physical Notes * HPI (History of Present Illness) Category Sub-Category Detail Notes Category Not es *[facility] A[facility]hetics The r isks, benefits & alternatives were discussed regarding available treatment options. A treatment path was determined after reviewing the patients medical records, our verbal discussions and via joint decision-making Consents for our planned treatments were signed and are on file
--- OUTSIDE RECORDS SUMMARY | 2024-04-08 14:47 | XMS_ITS ---
Author Organization [facility] Address [address] [place] [address] Care Team Providers Care Patient Access Registrar Name Role Phone Carlos Reymundo Unavailable [phone] REASON FOR VISIT Needs call back from office Encounters Encounter Location Date Provider Diagnosis [facility] [place] ([address]) [address] [phone] 02/27/2023 Reymundo Gonzalez Plan Of Treatment No Information Progress Notes * Kaelyn ACEVEDOOB:1950 ( 72 yo F)Acc No.[id number]:02/27/2023 Patient:?Marily ACEVEDO :1950???Age:72 Y???Sex:Female Address:[address] [place] [phone] * true * Date:? Generated for Printi ng/Kennedy/eTransmitting on:?04/08/2024 02:47 PM PROGRAMS MANAGER
--- OUTSIDE RECORDS SUMMARY | 2024-04-08 14:47 | XMS_ITS ---
Author Organization [facility] Address [address] [place] [phone] Care Team Providers Care Anesthesia Tech Name Role Phone CarlosReymundo [phone] REASON FOR VISIT [facility], interested in peptide therapy, Desired weight loss: lbs, No history MTC or MEN2 or pancreatitis, Concerned about future DM and OA Problems Problem Type SNOMED Code ICD Code Onset Dates Problem Status W/U Status Risk Notes Problem Morbid obesity (disorder) (293071928) Morbid (severe) obesity due to excess calories (E66.01) Active confirmed Problem Chronic fatigue syndrome (disorder) (88894346) Chronic fatigue, unspecified (R53.82) Active confirmed Encounters Encounter Location Date Provider Diagnosis [facility] - [facility] [place] ([address]) [address] [phone] 01/30/2023 Reymundo Gonzalez Morbid (severe) obesity due to excess calories E66.01 ; Chronic fatigue, unspecified R53.82 ; Other fatigue R53.83 and Other malaise R53.81 Assessments Encounter Date Diagnosis (ICD Code) Assessment Notes Treatment Notes Treatment Clinical Notes Section Notes 01/30/2023 Morbid (severe) obesity due to excess calories (ICD-10 - E66.01) 01/30/2023 Chronic fatigue, unspecified (ICD-10 - R53.82) 01/30/2023 Other fatigue (ICD-10 - R53.83) 01/30/2023 Other malaise (ICD-10 - R53.81) Plan Of Treatment Next Appt Details Follow Up: 1 Week, Reason: G LP-1 Agonist Administration Progress Notes * Martínez ACEVEDO:1950 ( 73 yo F)Acc No.[id number]:01/30/2023 MARKETING CONSULTANT Weight Loss Patient:?Marily ACEVEDO Provider:?Reymundo Gonzalez MD :1950???Age:72 Y???Sex:Female D ate:01/30/2023 Address:[address] [place] [address] Subjective: * Chief Complaints: * ???1. [facility] [...] Information: * Visit Code:? * Procedure Codes:? 41328 [facility] Initial Consultation (tirzepatide). 64152 [facility] Initial Consultation (semaglutide). 64461 [facility] - 2 months Prepay (tirzepatide) Tier 1 (0.5-5 mg). 33820 [facility] - 2 months Prepay (semaglutide) Tier 1 (0.125-0.875 mg). * Electronic signature of Can Gonzalez MD, FAAAAI on 04/08/2024 at 02:47 PM TRUMPET TEACHER Sign off status: Pending * Provider:?Reymundo Gonzalez MD Date:?01/30 Generated for Printi ng/Fadelfinag/eTransmitting on:?04/08/2024 02:47 PM TRUMPET TEACHER History and Physical Notes * HPI (History [...]
--- OUTSIDE RECORDS SUMMARY | 2024-04-08 14:47 | XMS_ITS | Patient Health Record ---
Author Organization [facility] Address [address] [place] [phone] Care Team Providers Care Double Surface Operator Name Role Phone Reymundo Gonzalez Unavailable [phone] Reason For Referral No Information Problems Problem Type SNOMED Code ICD Code Onset Dates Problem Status W/U Status Risk Notes Problem Morbid obesity (disorder) (767112183) Morbid (severe) obesity due to excess calories (E66.01) Active confirmed Problem Chronic fatigue syndrome (disorder) (90778138) Chronic fatigue, unspecified (R53.82) Active confirmed Plan Of Treatment No Information
--- OUTSIDE RECORDS SUMMARY | 2024-04-08 14:48 | XMS_ITS | Data Portability ---
Author Organization [place] [facility] [employer], Main Office Address [address] [place] [address] Assessment Encounter Date Assessment Date Assessment LastModified by Organization Details LastModified Time 07/27/2022 07/27/2022 The patient gave verbal consent using TelePhonic services and the consent is documented in the medical record prior to using the service. The patient has been informed of what a TeleMedicine visit is. Patient is located at home. Provider is located at office. Names and roles of persons in addition to the patient and provider participating in telemedicine services include none. The patient had a 5 minute TeleMedicine consultation via phone call to discuss the following: Not available 07/27/2022 09:47:53 Plan of Treatment Reminders Order Date Submit Date Provider Last Modified By Organization Details Last Modified Time Details Appointments None recorded. Lab HbA1c (hemoglobi n A1c), blood 2023 024 [email or web address] Not available 14:34:12 BMP, serum or plasma 2023 024 Not available 14:34:31 lipid panel, serum 2023 024 [email or web address] Not available 14:33:15 hepatic function panel, serum 2023 024 [email or web address] Not available 14:33:37 TSH, serum or plasma 2023 024 [email or web address] Not available 14:33:56 HbA1c (hemoglobi n A1c), blood 2023 024 [email or web address] [facility] [facility], [address], [address], [place], [address], 4 08:17:16 vitamin D, 25-hydroxy , total, serum 2023 024 [email or web address] 77 [employer] [facility], [facility] [address], [address], [place], [address], 4 08:41:22 CBC w/ auto diff 2023 024 [place] [address] [employer] [facility], [address], [address], [place], [address], 4 08:41:22 lipid panel, serum 2023 024 [email or web address] [facility] [facility], [address], [address], [place], [address], 4 08:17:16 CMP, serum or plasma 2023 024 [place] [address] [employer] [facility], [address], [address], [place], [address], 4 08:41:22 hepatitis C virus Ab, serum 2023 024 [place] [address] [employer] [facility], [facility] [address], [address], [place], [address], 4 08:41:22 TSH + free T4, serum 2023 024 [place] [address] [employer] [facility], [facility] [address], [address], [place], [address], 4 08:41:22 BNP (B-type natriureti c peptide), serum or plasma [address] ([facility]), [address] [place], [address], 5 08:28:48 D-dimer, quant, plasma 2024 025 [email or web address] 77 [facility] (Lab), [address] [place], [address], 5 08:28:48 BMP, serum or plasma 2024 [email or web address] [place] [address] (Lab), [address] [place], [address], 5 17:30:10 PT/PTT, plasma [address] [place] [address] (Lab), [address] [place], [address], 5 08:28:48 Referral vascular surgeon referral - Please call the patient to make an appt. Thank you 2022 023 [email or web address] Reymundo Arnold MD, [address] [facility], [address], [place], [address], 3 09:29:23 log chain feeder referral - Please call the patient to make an appt. Thank you 2022 023 [email or web address] Jeffery Terrell, [address], [place], [address], Ph [phone] 3 09:29:[address] referral - Please call patient to schedule an appointmen t. 2023 024 [email or web address] [facility], [address], [place], [address], 4 12:23:25 home health referral - SN, PT/OT Please call patient to schedule. 2023 024 [email or web address] [facility], [address] [place], [address], 4 12:22:27 neurologis t referral - Please call patient to schedule an appointmen t 2023 024 [email or web address] Raleigh Wood MD, [address], [place], [address], 4 12:24:[address] referral - Please call patient to schedule an appointmen t. Thank you. 2023 024 [email or web address] Kylie Jainolvin [facility], [address] [facility] [address], [place], [address], 4 10:30:[address] referral - Please call patient to schedule an appointmen t. Thank you. 2024 025 NATHANIEL Espinal Seolvin [facility], [address] [facility] [address], [place], [address], 5 11:55:18 Procedures None recorded. Surgeries None recorded. Imaging MAMMO, screening, digital, bilateral - Please call pt to schedule 2023 024 [email or web address] 56 [facility], [address], [place], [address], 5 09:28:23 US, duplex, venous, lower extremity, unilateral - Please call pt to schedule 2024 025 ATHSUSAN [facility], [address], [address], [place], [address], 5 12:35:23 Medication Orders nystatin 100,000 unit/gram topical cream 2022 023 [email or web address] [id number], [address] [place], [place], [id number], 4 10:31:44 Macrobid 100 mg capsule 2023 024 [email or web address] 77 [facility], [address] [place], [place], [id number], 14:13:39 Wellbutrin XL 150 mg 24 hr tablet, extended release 2023 024 [email or web address] [facility], [address], [address], [place], [place], [id number], 4 14:30:44 clonazepam 1 mg tablet 2023 024 NATHANIEL [facility], [address], [address], [place], [place], [id number], 14:25:20 Wellbutrin XL 150 mg 24 hr tablet, extended release 2023 024 NATHANIEL [facility], [address], [address], [place], [place], [id number], 4 14:35:12 clonazepam 1 mg tablet 2024 025 NATHANIEL [facility], [address] [facility] [address], [address], [place], [place], [id number], 5 16:56:38 Patient TargetsNo targets recorded. Patient Instructions Encounter Date Encounter Id Patient Instructions Last Modified By Organization Details Last Modified Time 07/27/2022 [id number] Due to the COVID-19 (Novel Coronavirus) pandemic, it is within this context (and with the understanding that this method of patient encounter is in the patient? s best interest as well as the health and safety of other patients and the public) that ? t elehealth? is being provided for this patient encounter rather than a qzyr-hj-wggj visit. This patient encounter is appropriate at this time. This patient has been advised of the potential risks and limitations of this mode of treatment (including, but not limited to, the absence of in-person examination) and has agreed to be treated in a remote fashion despite these risks. Any and all of the patient? s /patient? s family? s questions on this issue have been answered, and I have made no promises or guarantees to the patient. The patient has also been advised to contact this office for worsening conditions or problems, and seek emergency medical treatment and/or call 911 if the patient deems either necessary. HPI and/or vitals, if listed, were provided by the patient. Not available 07/27/2022 09:40:13 02/14/2024 [id number] dementia rating scale-2* NATHANIEL Not available 02/14/2024 22:21:51 multi-dimensiona l health assessment questionnaire* NATHANIEL Not available 02/14/2024 22:21:58 care plan* NATHANIEL Not available 02/13 22:22:08 advance directives: care instructions [email or web address] Not available 02/14/2024 14:35:10 advance care planning: care instructions [email or web address] Not available 02/14/2024 14:35:10 [place] Advance Directives [email or web address] Not available 02/14/2024 14:35:10 Reason for Referral Professor Of Music Referral for Labeler stacey ulcer of foot Please call the patient to make an appt. Thank you Referring Physician: Lety Wooten [facility] [place], Encounter Date: 07/27/2022 Vascular Surgeon Referral fo r Peripheral vascular disease Please call the patient to make an appt. Thank you Referring Physician: Family Nichole Kramer, Encounter Date: 07/27/2022 Home Health Referral for Abn ormal gait due to impairment of balance SN, PT/OT Please call patient to schedule. Referring Physician: Family Nichole Kramer, Encounter Date: 05/18/2023 Neurologist Referral for Abn ormal gait due to impairment of balance Please call patient to schedule an appointment Referring Physician: Family Nichole Kramer, Encounter Date: 05/18/2023 Psychiatrist Referral for De pressive disorder Please call patient to schedule an appointment. Referring Physician: Family Nichole Kramer, Encounter Date: 05/18/2023 Psychiatrist Referral for De pressive disorder Please call patient to schedule an appointment. Thank you. Referring Physician: Suzanne Pizarro [facility], Encounter Date: 12/06/2023 Psychiatrist Referral for Mi xed anxiety and depressive disorder Please call patient to schedule an appointment. Thank you. Referring Physician: Suzanne Pizarro [facility], Encounter Date: 03/26/2024 Results Created Date Observation Date Name Description Value Unit Range Abnormal Flag Note LastModifiedBy Organization Detail LastModifiedTime 12/06/19 24 12/06/2023 urina lysis , dipst ick Leukocytes (reference range: negative christine/? ? ?l) Large Not Available [address], [place], [address], 12/06/2023 14:12:12/06/19 24 12/06/2023 urina lysis , dipst ick Nitrite (reference rage: negative mg/dl) positi ve Not Available [address], [place], [address], 12/06/2023 14:12:12/06/1912/06/2023 urina lysis , dipst ick Urobilinogen (reference range: 0.2-1 mg/dl) 0.2 Not Available [address], [place], [address], 12/06/2023 14:12:12/06/19 24 12/06/2023 urina lysis , dipst ick Protein (reference range: negative mg/dl) Negati ve Not Available [address], [place], [address], 12/06/2023 14:12:12/06/19 24 12/06/2023 urina lysis , dipst ick pH (reference range: 5-7) 6.5 Not Available [address], [place], [address], 12/06/2023 14:12:05 12/06/19 24 12/06/2023 urina lysis , dipst ick Blood (reference range: negative Abhi/? ? ?l) Non-He molyze d: Trace Not Available [address], [place], [address], 12/06/2023 14:12:12/06/1912/06/2023 urina lysis , dipst ick Specific [place] (reference range: 1.005-1.030) 1.010 Not Available [address], [place], [address], 12/06/2023 14:12:12/06/1912/06/2023 urina lysis , dipst ick Ketone (reference range: negative mg/dl) Negati ve Not Available [address], [place], [address], 12/06/2023 14:12:12/06/1912/06/2023 urina lysis , dipst ick Bilirubin (reference range: negative mg/dl) Negati ve Not Available [address], [place], [address], 12/06/2023 14:12:12/06/1912/06/2023 urina lysis , dipst ick Glucose (reference range: negative mg/dl) Negati ve Not Available [address], [place], [address], 12/06/2023 14:12:12/06/1912/06/2023 urina lysis , dipst ick Appearance Slight ly Cloudy Not Available [address], [place], [address], 12/06/2023 14:12:05 12/06/19 24 12/06/2023 urina lysis , dipst ick Color Pale Yellow Not Available [facility] [address], [place], [address], 12/06/2023 14:12:05 Result Notes None recorded. Problems Name Problem SNOMED Code Status Onset Date Resolution Date Notes Provider Name and Address Organization Details Recorded Time Fracture of lumbar spine 563521354 Active 2021 Not Available [facility] 3 05:53:33 Mixed anxiety and depressive disorder 115094643 Active 2021 Not Available [facility] 3 05:53:33 Depressive disorder 53295695 Active 2016 Not Available [facility] 3 05:53:34 Neuropathy 848757298 Active 2016 Not Available [facility] 3 05:53:34 Peripheral vascular disease 826321347 Active 2016 Not Available [facility] 3 05:53:34 Hypothyroi dism 40145969 Active 2016 Not Available [facility] 3 05:53:34 Obesity 387870990 Active 2021 Not Available [facility] 3 05:53:34 Anxiety 40612251 Active 2016 Not Available [facility] 3 05:53:34 Osteoporos is 15242847 Active 2016 7 DEXA Not Available [facility] 3 05:53:34 Hemorrhoid s 55869154 Active 2016 Not Available [facility] 3 05:53:34 Infertile 2634792 Active 2016 Not Available [facility] 3 05:53:34 Chronic ulcer of foot 051897374 Active 2022 Lety Wooten MD [address] [place] [address], [place], [address] , [facility] [employer] [facility] 3 09:44:31 Candidal intertrigo 690999939 Active 2022 Lety Wooten MD [address], [place], [address] , [facility] 3 09:45:17 Hyperlipid emia 16769746 Active 2022 Lety Wooten MD [address], [address], [place], [address] , [facility] 3 18:08:11 Pain in right foot 5702741658706 07 Active 2022 JUANCHO Clinton [address], [place], [address] , [facility] 3 12:35:51 Melanocyti c nevus 900938698 Active 2022 JUANCHO Clinton [address], [address], [place], [address] , [facility] 3 12:21:42 Pleuritic pain 4805439 Active 2023 Lety Wooten MD [address], [address], [place], [address] , [facility] 4 17:48:39 Abnormal gait due to impairment of balance 565828393 Active 2023 Lety Wooten MD [address], [address], [place], [address] , [facility] 4 10:34:27 Prediabete s 670369081 Active 2023 Lety Wooten MD [address], [place], [address] , [facility] 4 10:35:09 Dysuria 33856630 Active 2023 Lino Delacruz RN [facility], [place] [facility] 4 14:12:01 Acute urinary tract infection 331481777 Active 2023 JUANCHO Celestin-C [address], [address], [place], [address] , [employer] 4 14:17:09 Swelling of lower leg 699723415 Active 2024 DEDRICK Celestin [address], [place], [address] , [employer] 5 16:45:43 Problem Notes None recorded. Procedures Surgical History Date Name Laterality Status Provider Name and Address Organization Details Recorded Time 4 Medicare Wellness CPT Code, subsequent completed DEDRICK Celestin [address], [place], [address], [employer] 02/14/2024 14:19:02 Imaging Results None recorded. Procedure Notes None recorded. Medical Equipment None Reported. Allergies Allergen ID Allergen Name Allergen Category Reaction Reaction Severity Criticality Documentation Date Start Date Code Code System Note Provider Name and Address Organization Details Recorded Time 9904 Product containin g penicilli n and antibioti c (product) medicatio n Not available Not available Not available 05/11/2022 69202 05 SNOMED Hives Not Available [employer] 3 05:56:53 Medications Name Sig Start Date Stop Date Status Note LastModified by Organization Details LastModified Time atorvasta tin 40 mg tablet Take 1 tablet every day by oral route. 02/13 completed Not Available Not Available Not Available doxycycli ne hyclate 100 mg capsule TAKE 1 CAPSULE BY MOUTH TWICE DAILY 12/05 completed Not Available Not Available Not Available atorvasta tin 20 mg tablet TAKE 1 TABLET BY MOUTH EVERY NIGHT AT BEDTIME 05/17 completed Not Available Not Available Not Available erythromy jagdish 500 mg tablet Take one tab po q 6hrs x 10 days 06/14 completed Not Available Not Available Not Available ammonium lactate 12 % lotion TIEN EXT TO AB FEET UP TO BID PRN 02/13 completed Not Available Not Available Not Available atorvasta tin 10 mg tablet 12/19 completed Not Available Not Available Not Available tizanidin e 4 mg tablet TAKE 1 TABLET BY MOUTH EVERY 8 HOURS FOR 10 DAYS NEEDED active Not Available Not Available No t Available hydrocodo ne 5 mg-acetam inophen 325 mg tablet TAKE 1 TABLET BY MOUTH EVERY 4 TO 6 HOURS NEEDED FOR PAIN 12/05 completed Not Available Not Available Not Available clonazepa m 1 mg tablet TAKE 1 TABLET BY MOUTH TWICE DAILY NEEDED 2024 active Not Available Not Available Not Avai lable erythromy jagdish 500 mg tablet,de layed release Take 1 tablet every 6 hours by oral route for 10 days. active Not Available Not Available No t Available phentermi ne 15 mg capsule Take 1 capsule every day by oral route for 30 days. 05/17 completed Not Available Not Available Not Available clindamyc in HCl 150 mg capsule TAKE 1 CAPSULE BY MOUTH EVERY 6 HOURS 12/05 completed Not Available Not Available Not Available clopidogr el 75 mg tablet TAKE 1 TABLET BY MOUTH EVERY MORNING 12/05 completed Not Available Not Available Not Available ciproflox acin 500 mg tablet TK 1 T PO Q 12 H FOR 7 DAYS 06/18 completed Not Available Not Available Not Available peg-elect rolyte solution 420 gram oral solution TK PO UTD 12/05 completed Not Available Not Available Not Available omeprazol e 40 mg capsule,d elayed release TAKE 1 CAPSULE BY MOUTH DAILY 02/13 completed Not Available Not Available Not Available aspirin 81 mg tablet,de layed release TAKE ONE TABLET BY MOUTH DAILY 02/13 completed Not Available Not Available Not Available tramadol 50 mg tablet TAKE 1 TABLET BY MOUTH EVERY 4 TO 6 HOURS NEEDED FOR PAIN 12/05 completed Not Available Not Available Not Available levothyro xine 75 mcg tablet TAKE 1 TABLET BY MOUTH DAILY 02/13 completed Not Available Not Available Not Available prednisol one sodium phosphate 1 % eye drops INSTILL 1 DROP INTO THE SURGICAL EYE TID. BEGIN AFTER SURGERY. 12/19 completed Not Available Not Available Not Available levothyro xine 50 mcg tablet 12/26 completed Not Available Not Available Not Available trazodone 150 mg tablet 1 po qhs prn insomnia 12/05 completed Not Available Not Available Not Available diclofena c 0.1 % eye drops 12/19 completed Not Available Not Available Not Available tobramyci n 0.3 % eye drops INSTILL 1 DROP IN SURGICAL EYE QID TO BEGIN 1 DAY PRIOR TO SURGERY 12/19 completed Not Available Not Available Not Available nystatin 100,000 unit/gram topical cream APPLY TO THE AFFECTED AREA(S) BY TOPICAL ROUTE 2 TIMES PER DAY prn rash 05/17 completed Not Available Not Available Not Available diclofena c sodium 75 mg tablet,de layed release TAKE 1 TABLET BY MOUTH TWICE DAILY WITH FOOD NEEDED FOR PAIN 05/17 completed Not Available Not Available Not Available furosemid e 20 mg tablet TAKE 1 TABLET BY MOUTH EVERY DAY FOR 12 DAYS 05/17 completed Not Available Not Available Not Available ergocalci ferol (vitamin D2) 1,250 mcg (50,000 unit) capsule Take 1 capsule every week by oral route. 06/18 completed Not Available Not Available Not Available polyethyl nnamdi glycol 3350 17 gram/dose oral powder 1 capful in 4-8 ounces po qday active Not Available Not Available No t Available levofloxa jagdish 500 mg tablet 12/05 completed Not Available Not Available Not Available fluoxetin e 20 mg capsule TAKE 1 CAPSULE BY MOUTH DAILY 05/17 completed Not Available Not Available Not Available neomycin 3.5 mg/g-poly myxin B 10,000 unit/g-de xameth 0.1 % eye oint active Not Available Not Available Not Available Wellbutri n XL 150 mg 24 hr tablet, extended release Take 1 tablet every day by oral route. 2023 active Not Available Not Available Not Avai lable nitrofura ntoin monohydra te/macroc rystals 100 mg capsule Take 1 capsule twice a day by oral route. 02/13 completed Not Available Not Available Not Available aspirin 02/13 completed patient states she takes 325 mg Not Available Not Available Not Available Xifaxan 550 mg tablet Take 1 tablet 3 times a day by oral route for 14 days. 05/17 completed Not Available Not Available Not Available Hair, Skin, Nails with Biotin 2 gummies daily 06/18 completed Not Available Not Available Not Available Viberzi 75 mg tablet TAKE 1 TABLET BY MOUTH TWICE DAILY 05/17 completed Not Available Not Available Not Available Fluzone High-Dose 1852-2990 (PF) 180 mcg/0.5 mL intramusc ular syringe ADM 0.5ML IM UTD 12/05 completed Not Available Not Available Not Available Afluria Qd 2018- (36 mos up)(PF)60 mcg (15 mcg x4)/0.5 mL IM syringe ADM 0.5ML IM UTD 12/05 completed Not Available Not Available Not Available Vitals Date Recorded Body height Body mass index (BMI) Body weight Systolic blood pressure Diastolic blood pressure Provider Name and Address Organization Details Last Updated DateTime 07/27/2022 160.02 cm 31.9 kg/m2 58199.63 g 120 mm[Hg] 70 mm[Hg] SHAJI Giles [facility] [employer] [facility] 3 09:31:11 Date Recorded Body height Body mass index (BMI) Body weight Oxygen saturation Oxygen saturation in Arterial blood by Pulse oximetry Heart rate Body temperature Systolic blood pressure Diastolic blood pressure Provider Name and Address Organization Details Last Updated DateTime 4 160.02 cm 29.6 kg/m2 16814.9 3 g 97 % 97 % 100 /min 98.7 [degF] 146 mm[Hg] 82 mm[Hg] SHAJI Giles [facility] [employer] [facility] 4 10:17:35 Date Recorded Body height Body mass index (BMI) Body weight Body temperature Heart rate Oxygen saturation Oxygen saturation in Arterial blood by Pulse oximetry Systolic blood pressure Diastolic blood pressure Provider Name and Address Organization Details Last Updated DateTime 4 160.02 cm 25 kg/m2 61529.5 2 g 97.6 [degF] 101 /min 96 % 96 % 142 mm[Hg] 80 mm[Hg] SHAJI Giles [facility] [employer] [facility] 4 14:07:13 Date Recorded Body height Body mass index (BMI) Body weight Body temperature Heart rate Oxygen saturation Oxygen saturation in Arterial blood by Pulse oximetry Systolic blood pressure Diastolic blood pressure Provider Name and Address Organization Details Last Updated DateTime 4 160.02 cm 25.2 kg/m2 69042.1 2 g 98.74 [degF] 92 /min 97 % 97 % 162 mm[Hg] 80 mm[Hg] SHAJI Giles - [facility] [employer] [facility] 4 14:13:02 Date Recorded Body height Body mass index (BMI) Body weight Body temperature Heart rate Oxygen saturation Oxygen saturation in Arterial blood by Pulse oximetry Systolic blood pressure Diastolic blood pressure Provider Name and Address Organization Details Last Updated DateTime 5 160.02 cm 26.2 kg/m2 27423.6 7 g 97.6 [degF] 91 /min 98 % 98 % 144 mm[Hg] 84 mm[Hg] Lino Delacruz RN [place] [facility] [employer] [facility] 5 16:37:03 Social History Question Answer Notes LastModified by Organizat ion Details LastModified Time Tobacco Smoking Status Former Smoker Not Available [employer] 05/11/2022 05:50:53 Do You Have An Advance Directive? Yes [id number] Information not available 05/11/2022 What Is Your Level Of Alcohol Consumption? None [id number] Information not available 05/11/2022 Are You Blind Or Do You Have Difficulty Seeing? No [id number] Information not available 05/11/2022 What Is Your Level Of Caffeine Consumption? None [id number] Information not available 05/11/2022 How Much Tobacco Do You Chew? None [id number] Information not available 05/11/2022 In The 14 Days Before Symptom Onset, Have You Had Close Contact With A Laboratory-confir med COVID-19 While That Case Was Ill? No [id number] Information not available 05/11/2022 In The 14 Days Before Symptom Onset, Have You Had Close Contact With A Person Who Is Under Investigation For COVID-19 While That Person Was Ill? No [id number] Information not available 05/11/2022 Are You Deaf Or Do You Have Serious Difficulty Hearing? No [id number] Information not available 05/11/2022 What Type Of Diet Are You Following? REGULAR [id number] Information not available 05/11/2022 Which Illicit Or Recreational Drugs Have You Used? None [id number] Information not available 05/11/2022 Do You Or Have You Ever Used E-cigarettes Or Vape? Never Used Electronic Cigarettes [id number] Information not available 05/11/2022 What Is Your Occupation? Retired [id number] Information not available 05/11/2022 Advance Directive- Providers Has Reviewed Directive And Consents To Follow Them (insert Provider Name With Any Objectives In Notes Field) No [id number] Information not available 05/11/2022 Are You Passively Exposed To Smoke? No [id number] Information not available 05/11/2022 Do You Or Have You Ever Used Smokeless Tobacco? Never Used Smokeless Tobacco [id number] Information not available 05/11/2022 How Much Tobacco Do You Smoke? No [id number] Information not available 05/11/2022 Sex: Unknown Functional Status Question Answer Note LastModified by Organizat ion Details LastModified Time Do you have difficulty walking or climbing stairs? Yes [id number] Information not available 05/11/2022 Do you have difficulty doing errands alone? Yes [id number].[id number] 6 Information not available 05/11/2022 Do you have difficulty dressing or bathing? Yes [id number] Information not available 05/11/2022 What is your exercise level? None [id number] 6 Information not available 05/11/2022 Mental Status Question Answer Note LastModified by Organizat ion Details LastModified Time Do you have difficulty concentrating, remembering or making decisions? No [id number].[id number] 6 Information not available 05/11/2022 Family History Nothing Reported. Medical History No medical history recorded. Gynecological HistoryNo gynecological history recorded. Obstetrics History GPAL:G 0 P 0 0 0 0 Immunizations Vaccine Type Date Status Note Provider Nam e and Address Organization Details Recorded Time SARS-COV-2 (COVID-19) vaccine, UNSPECIFIED 1 completed Not Available [facility] 05/11/2022 05:56:41 SARS-COV-2 (COVID-19) vaccine, UNSPECIFIED 1 completed Not Available [facility] 05/11/2022 05:56:41 Influenza, high-dose, quadrivalent, PF 1 completed Not Available [facility] 05/11/2022 05:56:41 Pneumococcal conjugate PCV 13 8 completed Not Available [facility] 05/11/2022 05:56:41 Influenza, split virus, quadrivalent, preservative 7 completed Not Available [facility] 05/11/2022 05:56:41 Past Encounters Encounter ID Performer Location Encounter Start Date Encounter Closed Date Diagnosis/Indication Diagnosis SNOMED-CT Code Diagnosis ICD10 Code Diagnosis Note [id number] [facility] [place] [address] [place] [address] 06/24/2020 00:00:00 06/24/2020 20:30:14 [id number] [facility] [place] [address] [place] [address] 09/23/2020 00:00:00 09/23/2020 15:08:58 [id number] [facility] [place] [address] [place] [address] 01/28/2021 00:00:00 01/28/2021 14:32:12 [id number] [facility] [place] [address] [place] [address] 07/28/2021 00:00:00 07/28/2021 19:35:35 [id number] [facility] [place] [address] [place] [address] 09/23/2021 00:00:00 09/23/2021 12:40:49 [id number] [facility] [place] [address] [place] [address] 10/08/2021 00:00:00 10/08/2021 15:37:16 [id number] [facility] [place] [address] [place] [address] 03/17/2022 00:00:00 03/17/2022 15:00:07 [id number] Lety Wooten MD [facility] [place] [address] [place] [address] 07/27/2022 09:25:55 07/27/2022 11:16:18 Chronic ulcer of foot 390168656 L97.509 Candidal intertrigo 2661 69847 B37.2 Peripheral vascular disease 687727425 I73.9 did not hear back from referral in Marchch onic condition, needs vascular surgeon [id number] Lety Wooten MD [facility] Primary Care [address] [address] 05/18/2023 10:11:03 05/18/2023 10:41:43 Depressive disorder 75267746 F32.A not in good controlpsy chiatry referral given Abnormal g ait due to impairment of balance 676260606 R26.89 [facility]/sn orderedneu rology referral given Hyperlipidemia 31550874 E78.5 Hypothyroidism 91316710 E03.9 Prediabetes 568163286 R7 3.03 [id number] JUANCHO CelestinRebel [facility] Primary Care [address] [address] 12/06/2023 13:53:49 12/06/2023 14:37:39 Anxiety 62712043 F41.9 PATRICIA-7 ()CSA discussed with patient, patient verbalized understand ing and is agreeable. Will follow up in 6-8 weeks, sooner if needed. Depressive disorder 3548 9007 F32.A Will start treatment as listed below per patient request.Torey gee will follow up in 6-8 weeks, sooner if needed. Acute urin william tract infection 939762094 N39.0 Discussed taking antibiotic s with food and drinking plenty of water while taking antibiotic s.Patient aware to take entire dose of antibiotic s even if symptoms improve or resolve.Torey gee will follow up as needed. [id number] DEDRICK Celestin [facility] Primary Care [address] [address] 02/14/2024 14:06:05 02/14/2024 16:07:14 Adult health examination 577764024 Z00.00 Discussed medication compliance and routine follow up.Discuss ed healthy diet and routine exercise.Osman calvertwed vaccine records and made recommenda tions as needed.Enc ouraged annual eye and dental exams, as well as twice yearly dental cleanings. Will check screening labs as listed below. Screening for disorder 555423075 Z13.9 Hyperlipidemia 09870439 E78.5 Will check labs as listed below. Hypothyroidism 01572685 E03.9 Will check labs as listed below. 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 Prediabetes 463709710 R7 3.03 Will check labs as listed below. Peripheral vascular disease 353339943 I73.9 Depressive disorder 3548 9007 F32.A Will start treatment as listed below per patient request.Torey gee will follow up in 6-8 weeks, sooner if needed. Administra tion of tetanus vaccine 428654775 Z23 Screening mammography 24 185794 Z12.31 Hepatitis C screening 41 0109400 Z11.59 [id number] Suzanne Pizarro, RECREATION AIDE-C [facility] [place] [facility] [address] [place] [address] 03/26/2024 16:30:00 03/26/2024 17:03:27 Swelling of lower leg 233807747 R22.42 Mixed anxi ety and depressive disorder 792194326 F41.8 Anxiety 12616679 F41.9 Health Concerns Section Related Observation LastModified by Organization Detai ls LastModified Time None Recorded Concern Status LastModified by Organization Details LastModified Time None Recorded Advance Directives Directive Y: Payers Encounter Date Sequence Insurance Name Policy Number Policy Renteria Covered Member ID Renteria Member ID Guarantor Name 07/27/2022 1 [facility] (MEDICARE REPLACEMENT/AD VANTAGE - HMO) [id number] Marily Acevedo [id number] Marily Acevedo 05/18/2023 1 [employer] (MEDICARE REPLACEMENT HMO) [id number] Marily Acevedo [id number] Marily Acevedo 12/06/2023 1 [employer] (MEDICARE REPLACEMENT HMO) [id number] Marily Acevedo [id number] Marily Acevedo 02/14/2024 1 [employer] (MEDICARE REPLACEMENT HMO) [id number] Marily Acevedo [id number] Marily Acevedo 03/26/2024 1 [employer] (MEDICARE REPLACEMENT HMO) Marily Acevedo [id number] Marily Acevedo Notes Date Note Type Note Provider Name and Address Organization Details Recorded Time 07/27/2022 text/html Telephone visit: Needs nails trimmedsore on right foot on bottom under big toe x months, getting bigger candidiasis under breast, wants refill of cream Lety Wooten MD [address], [place], [address], [place] 08/09/2022 22:46:48 05/18/2023 text/html about 7 months ago, she is not eating well, down in weight. She d/c her fluoxetine long before this because she did not think it was helpful. She does get help at home for personal care and home tasks. She has poor balance and has been falling, hit her head on her toilet last week when she fell. Lety Wooten MD [address], [place], [address], [place] 05/24/2023 17:47:26 12/06/2023 text/html Patient is a 72 year old female that presents to the office for possible UTI. Patient reports burning with urination, urinary hesitancy and urgency, bladder discomfort and chills for 2 days. Patient denies flank pain and pelvic pain, vaginal pain and vaginal discharge. Patient denies hematuria, fevers and nausea. Patient also reports concerns of worsening depression. Patient reports her in March and she has been struggling with anxiety and depression. Patient use to see psych for 10 years, last appt was 3-4 years ago. Patient reports she tried to call their office but Dr. Duncan no longer accepts Medicare patients. Patient took Sertraline years ago and does not wish to take that medication again. Patient denies chest pain and shortness of breath, nausea vomiting and diarrhea. DEDRICK Celestin [address], [place], [address], [place] 12/06/2023 14:52:03 02/14/2024 text/html Patient is a 73 year old female that presents to the office for Medicare Wellness. Patient is doing well on current medications and has no concerns at this time including chest pain and shortness of breath. Patient is moving into [facility] living and needs physical form completed. njjy-xpfbgqrVYL-ls sterectomyDEXA-dec linesMammogram-ord eredColonoscopy-UT DFlu-declinesCovid -UTDTdap-orderedSh ingles-awarePneumo -UTDRSV-aware DEDRICK Celestin [address], [facility] [address], [place], [address], [place] 02/16/2024 20:05:58 03/26/2024 text/html Patient is a 73 year old female that presents to the office for acute visit. Patient is accompanied by caregiver.Patient reports swelling of left lower extremity below the knee for 4-5 days. Patient denies pain and redness of left lower extremity. Patient denies any other symptoms or concerns at this time including chest pain and shortness of breath. Patient requesting referral for psychiatry. DEDRICK Celestin [address], [place] [address], [place], [address], [place] 03/27/2024 14:09:05 OBGyn Episode No OBEpisode recorded.
--- OUTSIDE RECORDS SUMMARY | 2024-04-08 14:48 | XMS_ITS | Clinical Summary ---
Author Organization [facility] Address [address] [place] [address]. [place], [place] [address] [place] [address] Care Team Providers Care Earth Observations Chief Scientist Name Role Phone Carlos Orellana MD Primary Care Provider [phone] Lety Wooten MD Unavailable [phone] Social History Tobacco Use Types Packs/Day Years Used Date Smoking Tobacco: Never Assessed Comments Unknown Sex and Gender Information Value Date Recorded Sex Assigned at Not on file Legal Sex Female 5:00 PM CDT Gender Identity Not on file Sexual Orientation Not on file Last Filed Vital Signs Vital Sign Reading Time Taken Comments Blood Pressure 135/87 02/04/2013 2:42 PM SOFTWARE ARCHITECT Pulse 87 02/04/2013 2:42 PM SOFTWARE ARCHITECT Temperature - - Respiratory Rate - - Oxygen Saturation - - Inhaled Oxygen Concentration - - Weight 64.4 kg (142 lb) 02/04/2013 2:42 PM SOFTWARE ARCHITECT Height 160 cm (5' 3 ) 12/17/2012 3:02 PM CDT Body Mass Index 25.15 12/17/2012 3:02 PM CDT Plan of Treatment Health Maintenance Due Date Last Done Comments Colorectal Cancer Screening Colonoscopy (10 Years) 1950 PHQ-2 (Physician [place]) 1964 Hepatitis C 1970 DTaP, Tdap and Td Vaccines ( 1 - Tdap) 12/14/1971 Mammogram Screening 1992 Zoster Vaccines (1 of 2) 2002 Annual Medicare Wellness Visit 2017 Dexa Scan (General) 2017 Pneumococcal Vaccine: 65+ Ye ars (1 of 1 - PCV) 2017 COVID-19 Vaccine ( - 2023-2 5 season) 2023 Influenza Adult (#1) 2023 PHQ-2 (Physician [place]) 03/13/2024 RSV Immunization or 60+ Years (1 - 1-dose 75+ series) 12/14/2027 Meningococcal B Vaccine Aged Out No l onger eligible based on patient's age to complete this topic Meningococcal Vaccine Aged Out No riley efren eligible based on patient's age to complete this topic RSV Immunizations Under 20 Months Aged Out No longer eligible based on patient's age to complete this topic Additional Health Concerns Infection Onset Date 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
== END 2024-04-08 14:02 | disposition home or self-care (01) ==
PROVIDERS: PCP Nurse Practitioner Family; Visit Provider Nurse Practitioner Family
DX: R22.42 Localized swelling, mass and lump, left lower limb (principal)
CPT/HCPCS: 93971

== ENCOUNTER 2024-05-26 21:45 | Emergency (ER) | payer MEDICARE, SELFPAY ==
--- NOTE | ~2024-05-26 | CT_ITS ---
CT head without contrast Indication: Status post fall COMPARISON: 08/03/2023 Technique: Serial scans were obtained through the brain without the administration of contrast. Dose reduction technique was used on this scan by utilizing automated exposure control and iterative recon struction technique. The dose-length product (DLP) was 681.00 mGy-cm. Findings: There is no evidence of intracranial hemorrhage, mass lesion, or acute infarct. The ventri cles and subarachnoid spaces are dilated, consistent with moderate atrophy. Stable chronic right lilia etal infarct. Low attenuation regions are seen within the periventricular white matter bilaterally, l ikely representing changes from chronic microvascular ischemic disease. There is no evidence of edema , mass effect or midline shift. The visualized paranasal sinuses and mastoid air cells are clear. Impression: No intracranial hemorrhage, mass, or acute infarct. Stable chronic right parietal infarct. Atrophy and chronic white matter changes, as above. Reviewed, dictated and finalized at location . Impression: No intracranial hemorrhage, mass, or acute infarct. Stable chronic right parietal infarct. Atrophy and chronic white matter changes, as above.
--- NOTE | ~2024-05-26 | CT_ITS ---
Noncontrast CT scan of the cervical spine Technique: Multiple contiguous axial [address] images of the cervical spine were obtained and rec onstructed in 2D sagittal and coronal planes on the acquisition scanner. Dose reduction technique was used on this scan by utilizing automated exposure control, adjustment of the mA and/or kV according to patient size. The dose-length product (DLP) was 181.32 mGy-cm. Clinical History: Pain Findings: No fractures or dislocations. There is multilevel mild degenerative disc narrowing and cer vical spine. There is bilateral neural foraminal narrowing at C4-C5. There is probable bilateral neur al foraminal narrowing at C5-C6 and C6-C7. No prevertebral soft tissue swelling. Impression: No fracture or subluxation of the cervical spine. Degenerative change, as above. Reviewed, dictated and finalized at [facility]. Impression: No fracture or subluxation of the cervical spine. Degenerative change, as above.
[2024-05-26 21:46] VITALS: BP 135/70; PULSE 89; RESP 18; TEMP 36.6; O2SAT 99
--- OUTSIDE RECORDS SUMMARY | 2024-05-26 21:47 | XMS_ITS ---
Author Organization [facility] Address [address] [place] [address] Care Team Providers Care Hosiery Repairer Name Role Phone Reymundo Gonzalez Unavailable [phone] REASON FOR VISIT Needs call back from office Encounters Encounter Location Date Provider Diagnosis [facility] ([address]) [address] [address] 02/27/2023 Reymundo Gonzalez Plan Of Treatment No Information Progress Notes * Kaelyn ACEVEDOOB:1950 ( 72 yo F)Acc No.[id number]:02/27/2023 Patient: Rebel Marily MORENO :1950 A ge:72 Y S ex:Female Address:[address] [place] [address] * true * Date: Generated for Hali ng/Fadelfinag/eTransmitting on: 0 05/26/2024 09:47 PM CDT
--- OUTSIDE RECORDS SUMMARY | 2024-05-26 21:48 | XMS_ITS | Clinical Summary ---
Author Organization [facility] Address [address] [place] [address] Care Team Providers Care Health Information Clerk Name Role Phone Carlos Orellana MD Primary Care Provider [phone] Lety Wooten MD Unavailable [phone] Social History Tobacco Use Types Packs/Day Years Used Date Smoking Tobacco: Never Assessed Comments Unknown Sex and Gender Information Value Date Recorded Sex Assigned at Not on file Legal Sex Female 5:00 PM CDT Gender Identity Not on file Sexual Orientation Not on file Last Filed Vital Signs Vital Sign Reading Time Taken Comments Blood Pressure 135/87 02/04/2013 2:42 PM MILL CRANE OPERATOR Pulse 87 02/04/2013 2:42 PM MILL CRANE OPERATOR Temperature - - Respiratory Rate - - Oxygen Saturation - - Inhaled Oxygen Concentration - - Weight 64.4 kg (142 lb) 02/04/2013 2:42 PM MILL CRANE OPERATOR Height 160 cm (5' 3 ) 12/17/2012 3:02 PM CDT Body Mass Index 25.15 12/17/2012 3:02 PM CDT Plan of Treatment Health Maintenance Due Date Last Done Comments Colorectal Cancer Screening Colonoscopy (10 Years) 1950 PHQ-2 (Physician [place]) 1964 Hepatitis C 1970 DTaP, Tdap and Td Vaccines ( 1 - Tdap) 12/14/1971 Mammogram Screening 1992 Zoster Vaccines (1 of 2) 2002 Annual Medicare Wellness Visit 2017 Dexa Scan (General) 2017 Pneumococcal Vaccine: 65+ Ye ars (1 of 1 - PCV) 2017 COVID-19 Vaccine ( - 2023-2 5 season) 2023 Influenza Adult (#1) 2023 PHQ-2 (Physician [place]) 03/13/2024 RSV Immunization or 60+ Years (1 [...] 10/19/2016 10/19/2016 Insurance AETNA AETNA Care Teams Health Information Clerk Relationship Specialty Start Date End Date Carlos Orellana MD [address] [place] [address] PCP - General 05/21/15 Lety Wooten MD [address] [place] [address] FAMILY PRACTICE 06/07/23
--- OUTSIDE RECORDS SUMMARY | 2024-05-26 21:48 | XMS_ITS | Data Portability ---
Author Organization [place] - [facility] [employer], Main Office Address [address] [place] [address] Assessment Encounter Date Assessment Date Assessment LastModified [...] Organization Details Last Modified Time Details Appointments Any 30 2024 02:30P Edna Pizarro NP Not available Not available Not available Lab BNP (B-type natriuret ic peptide), serum or plasma 2024 025 [email or web address] 77 [facility] (Lab), [address] [place], [address], 04/02/2024 08:28:48 D-dimer, quant, plasma 2024 025 77 [facility] (Lab), [address] [place], [address], 04/02/2024 08:28:48 BMP, serum or plasma 2024 025 [email or web address] 77 [facility] (Lab), [address] [place], [address], 04/09/2024 08:50:41 PT/PTT, plasma 2024 [email or web address] [place] [address] (Lab), [address] [place], [address], 04/02/2024 08:28:48 HbA1c (hemoglob in A1c), blood 2023 024 [email or web address] [facility], [address], [address], [place], [address], 02/29/2024 08:17:16 vitamin D, 25-hydrox y, total, serum 2023 024 [email or web address] [facility], [address], [address], [place], [address], 02/22/2024 08:41:22 CBC w/ auto diff 2023 024 [email or web address] [facility], [address], [address], [place], [address], 02/22/2024 08:41:22 lipid panel, serum 2023 024 [email or web address] [facility], [address], [address], [place], [address], 02/29/2024 08:17:16 CMP, serum or plasma 2023 024 [email or web address] [facility], [address], [address], [place], [address], 02/22/2024 08:41:22 hepatitis C virus Ab, serum 2023 024 [email or web address] [facility], [address], [address], [place], [address], 02/22/2024 08:41:22 TSH + free T4, serum 2023 024 [email or web address] [facility], [address], [address], [place], [address], 02/22/2024 08:41:22 HbA1c (hemoglob in A1c), blood 2023 024 Not available 05/18/2023 14:34:12 BMP, serum or plasma 2023 024 [email or web address] Not available 05/18/2023 14:34:31 lipid panel, serum 2023 024 [email or web address] Not available 05/18/2023 14:33:15 hepatic function panel, serum 2023 024 [email or web address] Not available 05/18/2023 14:33:37 TSH, serum or plasma 2023 024 Not available 05/18/2023 14:33:56 Referral psychiatr ist referral - Please call patient to schedule an appointme nt. Thank you. 2024 025 [email or web address] Kylie Olvera [facility], [address], [address], 04/24/2024 08:46:02 psychiatr ist referral - Please call patient to schedule an appointme nt. Thank you. 2023 024 [email or web address] Kylie Olvera [facility], [address] [place] [address], [address], 01/04/2024 10:30:18 psychiatr ist referral - Please call patient to schedule an appointme nt. 2023 024 [email or web address] [facility], [address], [address], [place], [address], 06/22/2023 12:23:25 home health referral - SN, PT/OT Please call patient to schedule. 2023 024 [email or web address] [facility], [address] [place], [address], 06/22/2023 12:22:[address] referral - Please call patient to schedule an appointme nt 2023 024 [email or web address] Raleigh Wood MD, [address], [place], [address], 06/22/2023 12:24:13 vascular surgeon referral - Please call the patient to make an appt. Thank you 2022 023 Reymundo Arnold MD, [address] [facility] , [address], [place], [address], 09/08/2022 09:29:23 podiatris t referral - Please call the patient to make an appt. Thank you 2022 023 [email or web address] Jeffery Tejada, [address] [place], [address], Ph [phone] 09/08/2022 09:29:20 Procedures None recorded. Surgeries None recorded. Imaging US, duplex, venous, lower extremity , unilatera l - Please call pt to schedule 2024 025 [facility], [address], [address], [place], [address], 04/29/2024 11:29:27 MAMMO, screening , digital, bilateral - Please call pt to schedule 2023 024 [email or web address] 56 [facility], [address], [address], [place], [address], 03/15/2024 09:28:23 Medication Orders clonazepa m 1 mg tablet 2024 025 NATHANIEL [facility], [address], [address], [place], [place], [id number], 03/26/2024 16:56:38 Wellbutri n XL 150 mg 24 hr tablet, extended release 2023 024 NATHANIEL [facility], [address], [address], [place], [place], [id number], 02/14/2024 14:35:12 Macrobid 100 mg capsule 2023 024 [email or web address] 77 [id number], [address], [place], [place], [id number], 02/14/2024 14:13:39 Wellbutri n XL 150 mg 24 hr tablet, extended release 2023 024 [email or web address] [facility], [address], [address], [place], [place], [phone], 02/14/2024 14:30:44 clonazepa m 1 mg tablet 2023 024 NATHANIEL [facility], [address], [address], [place], [place], [id number], 12/06/2023 14:25:20 nystatin 100,000 unit/gram topical cream 2022 023 [email or web address] [id number], [address], [place], [place], [phone], 05/18/2023 10:31:44 Patient TargetsNo targets recorded. Patient Instructions Encounter Date Encounter Id Patient Instructions Last Modified By Organization Details Last Modified Time 07/27/2022 [id number] Due to the COVID-19 (Novel Coronavirus) pandemic, it is within this context (and with the understanding that this method of patient encounter is in the patient s best interest as well as the health and safety of other patients and the public) that telehealth is being provided for this patient encounter rather than a whqx-ub-joal visit. This patient encounter is appropriate at this time. This patient has been advised of the potential risks and limitations of this mode of treatment (including, but not limited to, the absence of in-person examination) and has agreed to be treated in a remote fashion despite these risks. Any and all of the patient s/patient s family s questions on this issue have been answered, and I have made no promises or guarantees to the patient. The patient has also been advised to contact this office for worsening conditions or problems, and seek emergency medical treatment and/or call 911 if the patient deems either necessary. HPI and/or vitals, if listed, were provided by the patient. 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 Thank you Referring Physician: Family Nichole Kramer, Encounter Date: 07/27/2022 Vascular Surgeon Referral fo [...] an appointment. Thank you. Referring Physician: Suzanne Pizarro, [facility], Encounter Date: 12/06/2023 Psychiatrist Referral for Mi xed anxiety and depressive disorder Please call patient to schedule an appointment. Thank you. Referring Physician: Suzanne Pizarro [facility], Encounter Date: 03/26/2024 Results Created Date Observation Date Name Description Value Unit Range Abnormal Flag Note LastModifiedBy Organization Detail LastModifiedTime 12/06/19 24 12/06/2023 urina lysis , dipst ick Leukocytes (reference range: negative christine/ l) Large Not Available [address], [place], [address], 12/06/2023 14:12:12/06/1912/06/2023 urina lysis , dipst ick Nitrite (reference rage: negative mg/dl) positi ve Not Available [address], [place], [address], 12/06/2023 14:12:12/06/1912/06/2023 urina lysis , dipst ick Urobilinogen (reference range: 0.2-1 mg/dl) 0.2 Not Available [address], [place], [address], 12/06/2023 14:12:12/06/1912/06/2023 urina lysis , dipst ick Protein (reference range: negative mg/dl) Negati ve Not Available [address], [place], [address], 12/06/2023 14:12:05 12/06/1912/06/2023 urina lysis , dipst ick pH (reference range: 5-7) 6.5 Not Available [address], [place], [address], 12/06/2023 14:12:05 12/06/19 24 12/06/2023 urina lysis , dipst ick Blood (reference range: negative Abhi/ l) Non-He molyze d: Trace Not Available [address], [place], [address], 12/06/2023 14:12:12/06/19 24 12/06/2023 urina lysis , dipst ick Specific [place] (reference range: 1.005-1.030) 1.010 Not Available [address], [place], [address], 12/06/2023 14:12:12/06/19 24 12/06/2023 urina lysis , dipst ick Ketone (reference range: negative mg/dl) Negati ve Not Available [address], [place], [address], 12/06/2023 14:12:12/06/19 24 12/06/2023 urina lysis , dipst ick Bilirubin (reference range: negative mg/dl) Negati ve Not Available [address], [place], [address], 12/06/2023 14:12:12/06/19 24 12/06/2023 urina lysis , dipst ick Glucose (reference range: negative mg/dl) Negati ve Not Available [address], [place], [address], 12/06/2023 14:12:12/06/19 24 12/06/2023 urina lysis , dipst ick Appearance Slight ly Cloudy Not Available [address], [place], [address], 12/06/2023 14:12:05 12/06/19 24 12/06/2023 urina lysis , dipst ick Color Pale Yellow Not Available [facility] [address], [place], [address], 12/06/2023 14:12:05 04/08/19 25 04/08/2024 US, duple x, venou s, lower extre mity, unila teral No observ ation record ed. [email or web address] [facility] [address] [facility] [address], [place], [address], 04/29/2024 11:28:40 Result Notes None recorded. Problems Name Problem SNOMED Code Status Onset Date Resolution Date Notes Provider Name and Address Organization Details Recorded Time Fracture of lumbar spine 940269825 Active 2021 Not Available [facility] 3 05:53:33 Mixed anxiety and depressive disorder 121163309 Active 2021 Not Available [employer] 3 05:53:33 Depressive disorder 73941157 Active 2016 Not Available [employer] 3 05:53:34 Neuropathy 316975710 Active 2016 Not Available [employer] 3 05:53:34 Peripheral vascular disease 937726767 Active 2016 Not Available [employer] 3 05:53:34 Hypothyroi dism 92567038 Active 2016 Not Available [employer] 3 05:53:34 Obesity 022125630 Active 2021 Not Available [employer] 3 05:53:34 Anxiety 06338074 Active 2016 Not Available [facility] 3 05:53:34 Osteoporos is 63344530 Active 2016 7 DEXA Not Available [employer] 3 05:53:34 Hemorrhoid s 01784671 Active 2016 Not Available [facility] 3 05:53:34 Infertile 6807774 Active 2016 Not Available [facility] 3 05:53:34 Chronic ulcer of foot 701731605 Active 2022 Lety Wooten MD [address], [place], [address] , [facility] [employer] [facility] [employer] [facility] 3 09:44:31 Candidal intertrigo 161223447 Active 2022 Lety Wooten MD [address], [place], [address] , [facility] [employer] [facility] 3 09:45:17 Hyperlipid emia 65917198 Active 2022 Lety Wooten MD [address], [place], [address] , [facility] 3 18:08:11 Pain in right foot 1896173851429 07 Active 2022 JUANCHO Clinton [address], [place], [address] , [facility] [employer] [facility] [employer] 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 [employer] [facility] [employer] [facility] 3 12:21:42 Pleuritic pain 9809194 Active 2023 Lety Wooten MD [address], [place], [address] , [employer] [facility] 4 17:48:39 Abnormal gait due to impairment of balance 881784346 Active 2023 Lety Wooten MD [address], [place], [address] , [facility] [employer] [facility] 4 10:34:27 Prediabete s 410839402 Active 2023 Lety Wooten MD [address], [place], [address] , [facility] [employer] [facility] [employer] [facility] 4 10:35:09 Dysuria 06673567 Active 2023 Lino Delacruz RN [facility], [facility] 4 14:12:01 Acute urinary tract infection 655168561 Active 2023 DEDRICK Celestin [address], [place], [address] , [facility] 4 14:17:09 Swelling of lower leg 630891808 Active 2024 DEDRICK Celestin [address], [address], [place], [address] , [facility] 5 16:45:43 Foot callus 692319852 Active 2024 DEDRICK Celestin [address], [place], [address] , [facility] 5 14:45:38 Problem Notes None recorded. Procedures Surgical History Date Name Laterality Status Provider Name and Address Organization Details Recorded Time 4 Medicare Wellness CPT Code, subsequent completed DEDRICK Celestin [address], [place], [address], [facility] 02/14/2024 14:19:02 Imaging Results Imaging Date Name Status LastModified by Organiz ation Details LastModified Time 04/08/2024 US, duplex, venous, lower extremity, unilateral completed [email or web address] [facility] [address], [place], [address], 04/29/2024 11:28:40 Procedure Notes None recorded. Medical Equipment None Reported. Allergies Allergen ID Allergen Name Allergen Category Reaction Reaction Severity Criticality Documentation Date Start Date Code Code System Note Provider Name and Address Organization Details Recorded Time 9904 Product containin g penicilli n (product) medicatio n Not available Not available Not available 05/11/2022 07572 8001 SNOMED Hives Not Available [employer] 3 05:56:53 [...] Available Not Available Not Available Fluzone High-Dose 0713-2886 (PF) 180 mcg/0.5 mL intramusc ular syringe [...] Updated DateTime 07/27/2022 160.02 cm 31.9 kg/m2 14982.63 g 120 mm[Hg] 70 mm[Hg] Lino Delacruz RN [facility] [employer] 3 09:31:11 Date Recorded Body height Body mass index (BMI) Body weight Oxygen saturation Oxygen saturation in Arterial blood by Pulse oximetry Heart rate Body temperature Systolic blood pressure Diastolic blood pressure Provider Name and Address Organization Details Last Updated DateTime 4 160.02 cm 29.6 kg/m2 00730.9 3 g 97 % 97 % 100 /min 98.7 [degF] 146 mm[Hg] 82 mm[Hg] SHAJI Giles [facility] [employer] 4 10:17:35 Date Recorded Body height Body mass index (BMI) Body weight Body temperature Heart rate Oxygen saturation Oxygen saturation in Arterial blood by Pulse oximetry Systolic blood pressure Diastolic blood pressure Provider Name and Address Organization Details Last Updated DateTime 4 160.02 cm 25 kg/m2 74956.5 2 g 97.6 [degF] 101 /min 96 % 96 % 142 mm[Hg] 80 mm[Hg] SHAJI Giles [facility] [employer] [facility] 4 14:07:13 Date Recorded Body height Body mass index (BMI) Body weight Body temperature Heart rate Oxygen saturation Oxygen saturation in Arterial blood by Pulse oximetry Systolic blood pressure Diastolic blood pressure Provider Name and Address Organization Details Last Updated DateTime 4 160.02 cm 25.2 kg/m2 13287.1 2 g 98.74 [degF] 92 /min 97 % 97 % 162 mm[Hg] 80 mm[Hg] SHAJI Giles [facility] [employer] [facility] 4 14:13:02 Date Recorded Body height Body mass index (BMI) Body weight Body temperature Heart rate Oxygen saturation Oxygen saturation in Arterial blood by Pulse oximetry Systolic blood pressure Diastolic blood pressure Provider Name and Address Organization Details Last Updated DateTime 5 160.02 cm 26.2 kg/m2 51555.6 7 g 97.6 [degF] 91 /min 98 % 98 % 144 mm[Hg] 84 mm[Hg] Lino Delacruz RN [facility] [employer] [facility] 5 16:37:03 Social History Question Answer Notes LastModified by Organizat ion Details LastModified Time Tobacco Smoking Status Former Smoker Not Available [facility] 05/11/2022 05:50:53 Do You Have An Advance Directive? Yes MIGR[employer].[id number] Information not available 05/11/2022 What Is Your Level Of Alcohol Consumption? None M[employer].308394 0467 Information not available 05/11/2022 Are You Blind Or Do You Have Difficulty Seeing? No MIGRATION.112391 0288 Information not available 05/11/2022 What Is Your Level Of Caffeine Consumption? None MIGRATION.329908 4844 Information not available 05/11/2022 How Much Tobacco Do You Chew? None MIGRATION.055040 2650 Information not available 05/11/2022 In The 14 Days Before Symptom Onset, Have You Had Close Contact With A Laboratory-confir med COVID-19 While That Case Was Ill? No MIGRATION.[id number] 9583 Information not available 05/11/2022 In The 14 Days Before Symptom Onset, Have You Had Close Contact With A Person Who Is Under Investigation For COVID-19 While That Person Was Ill? No MIGRATION.882094 6082 Information not available 05/11/2022 Are You Deaf Or Do You Have Serious Difficulty Hearing? No MIGRATION.367215 5767 Information not available 05/11/2022 What Type Of Diet Are You Following? REGULAR MIGRATION.657783 4034 Information not available 05/11/2022 Which Illicit Or Recreational Drugs Have You Used? None MIGRATION.223205 6401 Information not available 05/11/2022 Do You Or Have You Ever Used E-cigarettes Or Vape? Never Used Electronic Cigarettes MIGRATION.531341 6211 Information not available 05/11/2022 What Is Your Occupation? Retired MIGRATION.394036 8568 Information not available 05/11/2022 Advance Directive- Providers Has Reviewed Directive And Consents To Follow Them (insert Provider Name With Any Objectives In Notes Field) No MIGRATION.952540 5527 Information not available 05/11/2022 Are You Passively Exposed To Smoke? No MIGRATION.978473 1449 Information not available 05/11/2022 Do You Or Have You Ever Used Smokeless Tobacco? Never Used Smokeless Tobacco MIGRATION.025460 0675 Information not available 05/11/2022 How Much Tobacco Do You Smoke? No MIGRATION.175411 2251 Information not available 05/11/2022 Sex: Unknown Functional Status Question Answer Note LastModified by Organizat ion Details LastModified Time Do you have difficulty walking or climbing stairs? Yes MIGRATION.[id number] 6 Information not available 05/11/2022 Do you have difficulty doing errands alone? Yes MIGRATION.625451189 6 Information not available 05/11/2022 Do you have difficulty dressing or bathing? Yes MIGRATION.224244656 6 Information not available 05/11/2022 What is your exercise level? None MIGRATION.497639596 6 Information not available 05/11/2022 Mental Status Question Answer Note LastModified by Organizat ion Details LastModified Time Do you have difficulty concentrating, remembering or making decisions? No MIGRATION.165233285 6 Information not available 05/11/2022 Family History Nothing Reported. Medical History No medical history recorded. Gynecological HistoryNo gynecological history recorded. Obstetrics History GPAL:G 0 P 0 0 0 0 Immunizations Vaccine Type Date Status Note Provider Nam e and Address Organization Details Recorded Time SARS-COV-2 (COVID-19) vaccine, UNSPECIFIED 1 completed Not Available [facility] 05/11/2022 05:56:41 SARS-COV-2 (COVID-19) vaccine, UNSPECIFIED 1 completed Not Available [facility] 05/11/2022 05:56:41 Influenza, high-dose, quadrivalent, PF 1 completed Not Available [facility] 05/11/2022 05:56:41 Pneumococcal conjugate PCV 13 8 completed Not Available [facility] 05/11/2022 05:56:41 Influenza, split virus, quadrivalent, preservative 7 completed Not Available [facility] 05/11/2022 05:56:41 Past Encounters Encounter ID Performer Location Encounter Start Date Encounter Closed Date Diagnosis/Indication Diagnosis SNOMED-CT Code Diagnosis ICD10 Code Diagnosis Note [id number] [facility] [place] [address] [facility] [address] [place] [address] 06/24/2020 00:00:00 06/24/2020 20:30:14 [id number] [facility] [place] [address] [facility] [address] [place] [address] 09/23/2020 00:00:00 09/23/2020 15:08:58 [id number] [facility] [place] [address] [facility] [address] [place] [address] 01/28/2021 00:00:00 01/28/2021 14:32:12 [id number] [facility] [place] [address] [facility] [address] [place] [address] 07/28/2021 00:00:00 07/28/2021 19:35:35 [id number] [facility] [place] [address] [facility] [address] [place] [address] 09/23/2021 00:00:00 09/23/2021 12:40:49 [id number] [facility] [place] [address] [facility] [address] [place] [address] 10/08/2021 00:00:00 10/08/2021 15:37:16 [id number] [facility] Primary Care [facility] [place] [address] [facility] [address] [place] [address] 03/17/2022 00:00:00 03/17/2022 15:00:07 [id number] Lety Wooten MD [facility] Primary Care [facility] [address] [place] [address] 07/27/2022 09:25:55 07/27/2022 11:16:18 Chronic ulcer of foot 218131931 L97.509 Candidal intertrigo 2661 67273 B37.2 Peripheral vascular disease 482773172 I73.9 did not hear back from referral in Marchch onic condition, needs vascular surgeon [id number] Lety Wooten MD [facility] Primary Care [place] [address] [place] [address] 05/18/2023 10:11:03 05/18/2023 10:41:43 Depressive disorder 25038584 F32.A not in good controlpsy chiatry referral given Abnormal g ait due to impairment of balance 550601803 R26.89 recurrent fall[facility] health pt/ot/sn orderedneu rology referral given Hyperlipidemia 59092194 E78.5 Hypothyroidism 25494832 E03.9 Prediabetes 715846048 R7 3.03 [id number] KENDRA CelestinP-Rebel [facility] Primary Care [facility] [address] [facility] [address] [place] [address] 12/06/2023 13:53:49 12/06/2023 14:37:39 Anxiety 85595643 F41.9 PATRICIA-7 ()CSA discussed with patient, patient verbalized understand ing and is agreeable. Will follow up in 6-8 weeks, sooner if needed. Depressive disorder 3548 9007 F32.A Will start treatment as listed below per patient request.Pa marlen will follow up in 6-8 weeks, sooner if needed. Acute urin william tract infection 672065822 N39.0 Discussed taking antibiotic s with food and drinking plenty of water while taking antibiotic s.Patient aware to take entire dose of antibiotic s even if symptoms improve or resolve.Torey gee will follow up as needed. [id number] DEDRICK Celestin [facility] Primary Care [facility] [address] [facility] [address] [place] [address] 02/14/2024 14:06:05 02/14/2024 16:07:14 Adult health examination 893055204 Z00.00 Discussed medication compliance and routine follow up.Discuss ed healthy diet and routine exercise.Osman calvertwed vaccine records and made recommenda tions as needed.Enc ouraged annual eye and dental exams, as well as twice yearly dental cleanings. Will check screening labs as listed below. Screening for disorder 336038133 Z13.9 Hyperlipidemia 18963918 E78.5 Will check labs as listed below. Hypothyroidism 20926862 E03.9 Will check labs as listed below. Mixed anxi ety and depressive disorder 407310111 F41.8 Neuropathy 298795309 G62 .9 Obesity 059881051 E66.9 Discussed healthy diet and routine exercise as tolerated. Prediabetes 992061198 R7 3.03 Will check labs as listed below. Peripheral vascular disease 633099532 I73.9 Depressive disorder 3548 9007 F32.A Will start treatment as listed below per patient request.Torey gee will follow up in 6-8 weeks, sooner if needed. Administra tion of tetanus vaccine 728812953 Z23 Screening mammography 24 553873 Z12.31 Hepatitis C screening 41 9086524 Z11.59 [id number] DEDRICK Celestin [facility] [place] Primary Care [facility] [address] [place] [address] 03/26/2024 16:30:00 03/26/2024 17:03:27 Swelling of lower leg 416526979 R22.42 Mixed anxi ety and depressive disorder 219069643 F41.8 Anxiety 00194589 F41.9 Health Concerns Section Related Observation LastModified by Organization Detai ls LastModified Time None Recorded Concern Status LastModified by Organization Details LastModified Time None Recorded Advance Directives Directive Y: Payers Encounter Date Sequence Insurance Name Policy Number Policy Renteria Covered Member ID Renteria Member ID Guarantor Name 07/27/2022 1 [facility] (MEDICARE REPLACEMENT/AD VANTAGE - HMO) [id number] Marily Acevedo [id number] Marily Acevedo 05/18/2023 1 [employer] (MEDICARE REPLACEMENT HMO) [id number] Marily Acevedo [id number] Marily Acevedo 12/06/2023 1 [employer] (MEDICARE REPLACEMENT HMO) [id number] Marily Acevedo [id number] Marily Acevedo 02/14/2024 1 [employer] (MEDICARE REPLACEMENT HMO) [id number] Marily Acevedo [id number] Marily Acevedo 03/26/2024 1 [employer] (MEDICARE REPLACEMENT HMO) Marily Acevedo [id number] Marily Acevedo Notes Date Note Type Note Provider Name and Address Organization Details Recorded Time 07/27/2022 text/html Telephone visit: Needs nails trimmedsore on right foot on bottom under big toe x months, getting bigger candidiasis under breast, wants refill of cream Lety Wooten MD [address], [place], [address], [employer] 08/09/2022 22:46:48 05/18/2023 text/html about 7 months [...] week when she fell. Lety Wooten MD [address], [place], [address], [employer] 05/24/2023 17:47:26 12/06/2023 text/html Patient is a [...] breath, nausea vomiting and diarrhea. DEDRICK Celestin [address], [place], [address], [employer] 12/06/2023 14:52:03 02/14/2024 text/html Patient is a 73 year old female that presents to the office for Medicare Wellness. Patient is doing well on current medications and has no concerns at this time including chest pain and shortness of breath. Patient is moving into [facility] and needs physical form completed. ifqn-dahjrbbEAY-lt sterectomyDEXA-dec linesMammogram-ord eredColonoscopy-UT DFlu-declinesCovid -UTDTdap-orderedSh ingles-awarePneumo -UTDRSV-aware DEDRICK Celestin [address] [employer] [address], [place], [address], [employer] 02/16/2024 20:05:58 03/26/2024 text/html Patient is a [...] requesting referral for psychiatry. DEDRICK Celestin [address] [employer], [place], [address], [employer] 03/27/2024 14:09:05 OBGyn Episode No OBEpisode recorded.
--- OUTSIDE RECORDS SUMMARY | 2024-05-26 21:48 | XMS_ITS ---
Author Organization [facility] Address [address] [place] [address] Care Team Providers Care Manager Hvac Name Role Phone Reymundo Gonzalez [phone] REASON FOR VISIT [facility], interested in peptide therapy, Desired weight loss: lbs, No history MTC or MEN2 or pancreatitis, Concerned about future DM and OA Encounters Encounter Location Date Provider Diagnosis Que - [facility] [place] ([address]) 2022 TREY ISAAC MINERVA [address] [place] [address] 05/23/2023 Ryemundo Gonzalez Morbid (severe) obesity due to excess [...] * Kaelyn ACEVEDOOB:1950 ( 73 yo F)Acc No.[id number]:05/23/2023 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 [facility], interested in peptide therapy. 2. Desired weight loss: lbs. 3. No history MTC or MEN2 or pancreatitis. 4. Concerned about future DM and OA. * HPI: * Well[facility] Aest[facility]: The risks, benefits & alternatives were discussed regarding available treatment options. A treatment path was determined after reviewing the patients medical records, our verbal discussions and via joint decision-making Consents for our planned treatments were signed and are on file. * Medical History: Objective: * Vitals: Assessment: * Assessment: 1. M orbid (severe) obesity due to excess calories - E66.01 (Primary) 2 . C hronic fatigue, unspecified - R53.82 3 . O ther fatigue - R53.83 ?4. O ther malaise - R53.81 Plan: * Treatment: * Follow Up: 1 Week (Reason: GLP-1 Agonist Administration) * Billing Information: * Visit Code: * Procedure Codes: 97856 [facility] Initial Consultation (tirzepatide). 66852 [facility] Initial Consultation (semaglutide). 59891 [facility] - 2 months Prepay (tirzepatide) Tier 1 (0.5-5 mg). 44300 [facility] - 2 months Prepay (semaglutide) Tier 1 (0.125-0.875 mg). * Electronic signature of Can Gonzalez MD, FAAAAI on 05/26/2024 at 09:47 PM CDT Sign off status: Pending * Provider: Ophelia Gonzalez MD Date: 0 05/23/2023 Generated for Delta hernandez/Kennedy/eTransmitting on: 0 05/26/2024 09:47 PM CDT History and Physical Notes * HPI (History [...]
--- OUTSIDE RECORDS SUMMARY | 2024-05-26 21:48 | XMS_ITS | Patient Health Record ---
Author Organization [facility] Address [address] [place] [address] Care Team Providers Care Supervisor Ski Production Name Role Phone Reymundo Gonzalez Unavailable [phone] Reason For Referral No Information Problems Problem Type SNOMED Code ICD Code Onset Dates Problem Status W/U Status Risk Notes Problem Morbid obesity (disorder) (428235591) Morbid (severe) obesity due to excess calories (E66.01) Active confirmed Problem Chronic fatigue syndrome (disorder) (26324729) Chronic fatigue, unspecified (R53.82) Active confirmed Plan Of Treatment No Information
--- OUTSIDE RECORDS SUMMARY | 2024-05-26 21:48 | XMS_ITS ---
Author Organization [facility] Address [address] [place] [address] Care Team Providers Care Nursing Aide Name Role Phone CarlosReymundo [phone] REASON FOR VISIT [facility], interested in peptide therapy, Desired weight loss: lbs, No history MTC or MEN2 or pancreatitis, Concerned about future DM and OA Problems Problem Type SNOMED Code ICD Code Onset Dates Problem Status W/U Status Risk Notes Problem Morbid obesity (disorder) (958349486) Morbid (severe) obesity due to excess calories (E66.01) Active confirmed Problem Chronic fatigue syndrome (disorder) (77000365) Chronic fatigue, unspecified (R53.82) Active confirmed Encounters Encounter Location Date Provider Diagnosis Que - [facility] [place] ([address]) [address] [address] 01/30/2023 Reymundo Gonzalez Morbid (severe) obesity due [...] * Martínez ACEVEDO:1950 ( 73 yo F)Acc No.[id number]:01/30/2023 [facility] Weight Loss Patient: Marily KENNEDY Provider: Ophelia Gonzalez MD :1950 A ge:72 Y S ex:Female Date:01/30/2023 Address:[address] [place] [address] Subjective: * Chief Complaints: * 1 . [...] Information: * Visit Code: * Procedure Codes: 96551 [facility] Initial Consultation (tirzepatide). 37394 [facility] Initial Consultation (semaglutide). 17536 [facility] - 2 months Prepay (tirzepatide) Tier 1 (0.5-5 mg). 38105 [facility] - 2 months Prepay (semaglutide) Tier 1 (0.125-0.875 mg). * Electronic signature of Can Gonzalez MD, FAAAAI on 05/26/2024 at 09:48 PM CDT Sign off status: Pending * Provider: Ophelia Gonzalez MD Date: 04/01/2022 Generated for Delta hernandez/Kennedy/eTransmitting on: 0 05/26/2024 09:48 PM CDT History and Physical Notes * [...]
--- NOTE | 2024-05-26 23:50 | PC.NURSE ---
Patient to desk stating she wants to go home and change due to having an accident on herself. Advised that wound on head is deep, CT is still pending, and patient should be seen by a provider. Patient still wanting to leave.
--- OUTSIDE RECORDS SUMMARY | 2024-05-27 00:08 | XMS_ITS | Patient Health Record ---
Author Organization [facility] Address [address] [place] [address] Care Team Providers Care Associate Scientist Name Role Phone Reymundo Gonzalez Unavailable [phone] Reason For Referral No Information Problems Problem Type SNOMED Code ICD Code Onset Dates Problem Status W/U Status Risk Notes Problem Morbid obesity (disorder) (908500615) Morbid (severe) obesity due to excess calories (E66.01) Active confirmed Problem Chronic fatigue syndrome (disorder) (16412122) Chronic fatigue, unspecified (R53.82) Active confirmed Plan Of Treatment No Information
--- OUTSIDE RECORDS SUMMARY | 2024-05-27 00:08 | XMS_ITS ---
Author Organization [facility] Address [address] [place] [address] Care Team Providers Care Guide Rail Cleaner Name Role Phone CarlosReymundo [phone] REASON FOR VISIT [facility], interested in peptide therapy, Desired weight loss: lbs, No history MTC or MEN2 or pancreatitis, Concerned about future DM and OA Problems Problem Type SNOMED Code ICD Code Onset Dates Problem Status W/U Status Risk Notes Problem Morbid obesity (disorder) (515001141) Morbid (severe) obesity due to excess calories (E66.01) Active confirmed Problem Chronic fatigue syndrome (disorder) (75067109) Chronic fatigue, unspecified (R53.82) Active confirmed Encounters Encounter Location Date Provider Diagnosis Que - [facility] [place] ([address]) [address] [address] 01/30/2023 Reymundo Gonzalez Morbid (severe) obesity due [...] * Martínez ACEVEDO:1950 ( 73 yo F)Acc No.[id number]:01/30/2023 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 [...] Information: * Visit Code: * Procedure Codes: 26420 [facility] Initial Consultation (tirzepatide). 14913 [facility] Initial Consultation (semaglutide). 79099 [facility] - 2 months Prepay (tirzepatide) Tier 1 (0.5-5 mg). 56271 [facility] - 2 months Prepay (semaglutide) Tier 1 (0.125-0.875 mg). * Electronic signature of Can Gonzalez MD, FAAAAI on 05/27/2024 at 12:08 AM CDT Sign off status: Pending * Provider: Ophelia Gonzalez MD Date: 04/01/2022 Generated for Delta hernandez/Kennedy/eTransmitting on: 0 05/27/2024 12:08 AM CDT History and Physical Notes * HPI [...]
--- OUTSIDE RECORDS SUMMARY | 2024-05-27 00:08 | XMS_ITS ---
Author Organization [facility] Address [address] [place] [address] Care Team Providers Care Tin Worker Name Role Phone Reymundo Gonzalez [phone] REASON FOR VISIT [facility], interested in peptide therapy, Desired weight loss: lbs, No history MTC or MEN2 or pancreatitis, Concerned about future DM and OA Encounters Encounter Location Date Provider Diagnosis Que - [facility] [place] ([address]) [address]22 T[address] ISAAC MINERVA [address] [place] [address] 05/23/2023 Reymundo Gonzalez Morbid (severe) obesity due [...] * Kaelyn ACEVEDOOB:1950 ( 73 yo F)Acc No.[id number]:05/23/2023 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 [...] Information: * Visit Code: * Procedure Codes: 05684 [facility] Initial Consultation (tirzepatide). 96450 [facility] Initial Consultation (semaglutide). 66048 [facility] - 2 months Prepay (tirzepatide) Tier 1 (0.5-5 mg). 36705 [facility] - 2 months Prepay (semaglutide) Tier 1 (0.125-0.875 mg). * Electronic signature of Can Gonzalez MD, FAAAAI on 05/27/2024 at 12:08 AM CDT Sign off status: Pending * Provider: Ophelia Gonzalez MD Date: 0 05/23/2023 Generated for Delta hernandez/Kennedy/eTransmitting on: 0 05/27/2024 [...]
--- OUTSIDE RECORDS SUMMARY | 2024-05-27 00:08 | XMS_ITS | Clinical Summary ---
Author Organization [facility] Address [address] [place] [address] Care Team Providers Care Survey Supervisor Name Role Phone Carlos Orellana MD Primary Care Provider [phone] Lety Wooten MD Unavailable [phone] Social History Tobacco Use Types Packs/Day Years Used Date Smoking Tobacco: Never Assessed Comments Unknown Sex and Gender Information Value Date Recorded Sex Assigned at Not on file Legal Sex Female 5:00 PM CDT Gender Identity Not on file Sexual Orientation Not on file Last Filed Vital Signs Vital Sign Reading Time Taken Comments Blood Pressure 135/87 02/04/2013 2:42 PM BUILDING COORDINATOR Pulse 87 02/04/2013 2:42 PM BUILDING COORDINATOR Temperature - - Respiratory Rate - - Oxygen Saturation - - Inhaled Oxygen Concentration - - Weight 64.4 kg (142 lb) 02/04/2013 2:42 PM BUILDING COORDINATOR Height 160 cm (5' 3 ) 12/17/2012 3:02 PM CDT Body Mass Index 25.15 12/17/2012 3:02 PM CDT Plan of Treatment Health Maintenance Due Date Last Done Comments Colorectal Cancer Screening Colonoscopy (10 Years) 1950 PHQ-2 (Physician [place]) 1964 Hepatitis C 1970 DTaP, Tdap and Td Vaccines ( 1 - Tdap) 12/14/1971 Mammogram Screening 1992 Zoster Vaccines (1 of 2) 2002 Annual Medicare Wellness Visit 2017 Dexa Scan (General) 2017 Pneumococcal Vaccine: 65+ Ye ars (1 of 1 - PCV) 2017 COVID-19 Vaccine ( - 2023-2 5 season) 2023 Influenza Adult (#1) 2023 PHQ-2 (Physician [place]) 03/13/2024 RSV Immunization or 60+ Years (1 [...] 10/19/2016 10/19/2016 Insurance AETNA AETNA Care Teams Survey Supervisor Relationship Specialty Start Date End Date Carlos Orellana MD [address] [place] [address] PCP - General 05/21/15 Lety Wooten MD [address] [place] [address] FAMILY PRACTICE 06/07/23
--- OUTSIDE RECORDS SUMMARY | 2024-05-27 00:08 | XMS_ITS ---
Author Organization [facility] Address [address] [place] [address] Care Team Providers Care Shock Absorption Floor Layer Name Role Phone Reymundo Gonzalez Unavailable [phone] REASON FOR VISIT Needs call back from office Encounters Encounter Location Date Provider Diagnosis [facility] [place] ([address]) [address] [address] 02/27/2023 Reymundo Gonzalez Plan Of Treatment No Information Progress Notes * Kaelyn ACEVEDOOB:1950 ( 72 yo F)Acc No.[id number]:02/27/2023 Patient: Rebel Marily MORENO :1950 A ge:72 Y S ex:Female Address:[address] [place] [address] * true * Date: Generated for Hali ng/Charyg/eTransmitting on: 0 05/27/2024 12:07 AM CDT
== END 2024-05-27 00:17 | disposition left against medical advice (07) ==
PROVIDERS: Emergency Provider Student in an Organized Health Care Education/Training Program; PCP Nurse Practitioner Family
DX: S01.112A Laceration without foreign body of left eyelid and periocular area, initial encounter (principal); W01.198A Fall on same level from slipping, tripping and stumbling with subsequent striking against other object, initial encounter
CPT/HCPCS: 70450; 72125; 99199